=== PATIENT | female | born 1965 | race Caucasian/White ===

== ENCOUNTER → 2022-05-31 15:03 | Outpatient (CLI) | payer MEDICAID, SELFPAY ==
--- NOTE | ~2022-05-31 | XR_ITS ---
XR chest 2V DATE: 05/31/2022 15:45 INDICATION: Dyspnea, shortness of breath for 3 days. Crackling sounds. Ex-smoker. TECHNIQUE: 2 views COMPARISON: None FINDINGS: There is cardiomegaly. There is pulmonary vascular congestion and redistribution. Small ple ural effusions. The findings are consistent with mild congestive heart failure. Diffuse osteopenia. There are multiple fracture deformities in the thoracolumbar area. IMPRESSION: Cardiomegaly, mild congestive heart failure Osteopenia Multiple fracture deformities of the thoracolumbar area Reviewed, dictated and finalized at location B.
--- NOTE | ~2022-05-31 | XR_ITS ---
XR lumbar spine min 4V DATE: 05/31/2022 15:44 INDICATION: Back pain. History of compression fracture L1 2017. TECHNIQUE: AP, lateral, coned lateral lumbosacral views COMPARISON: None FINDINGS: There is minimal dextroscoliosis of the lumbar spine. There is osteopenia. There are prominent fracture deformities including prominent loss of height and anterior wedging at T 11, T12, L1, L2, L4 and to a lesser extent L5. No spondylolysis or spondylolisthesis. The included lower thoracic and lumbar pedicles appear intact. The sacroiliac joints are normally aligned. IMPRESSION: Fracture deformities of T11, T12, L1, L2, L4 and L5 Osteopenia Reviewed, dictated and finalized at location B.
--- NOTE | ~2022-05-31 | XR_ITS ---
XR knee RT min 4V DATE: 05/31/2022 15:44 INDICATION: Chronic bilateral knee pain TECHNIQUE: 4 views COMPARISON: None FINDINGS: There is osteopenia. Mild suprapatellar knee joint effusion. There is tricompartment osteoarthritis manifested mainly by tricompartment periarticular spurring and moderately severe loss of joint space at the medial compartment. No fracture or dislocation, periosteal reaction or bone destruction. No radiopaque intra-articular lo ose body or chondrocalcinosis. IMPRESSION: Tricompartment osteoarthritis, most prominent at the medial compartment Small knee joint effusion Osteopenia Reviewed, dictated and finalized at location B. IMPRESSION: Tricompartment osteoarthritis, most prominent at the medial compart ment Small knee joint effusion Osteopenia
--- NOTE | ~2022-05-31 | XR_ITS ---
XR knee LT min 4V DATE: 05/31/2022 15:44 INDICATION: Left knee pain TECHNIQUE: 4 views COMPARISON: None FINDINGS: No fracture or dislocation, periosteal reaction or bone destruction. There is mild to moder ate tricompartment osteoarthritis, more prominent at the medial compartment with moderately severe lo ss of joint space at the medial compartment, mild tricompartment particular spurring. No radiopaque intra-articular loose body or chondrocalcinosis. IMPRESSION: Tricompartment osteoarthritis, most prominent at the medial compartment Reviewed, dictated and finalized at location B. IMPRESSION: Tricompartment osteoarthritis, most prominent at the medial compart ment
== END ==
PROVIDERS: PCP Family Medicine; Visit Provider Family Medicine
DX: R06.00 Dyspnea, unspecified (principal); I51.7 Cardiomegaly; M85.88 Other specified disorders of bone density and structure, other site; I50.9 Heart failure, unspecified; M85.861 Other specified disorders of bone density and structure, right lower leg; M25.461 Effusion, right knee; M17.0 Bilateral primary osteoarthritis of knee
CPT/HCPCS: 71046; 72110; 73564

== ENCOUNTER 2022-06-05 13:04 | Outpatient (CLI) | payer MEDICAID, SELFPAY ==
[2022-06-05 18:49] LABS: Basophils Percent Auto 0.6 % (0.2-1.2); Eosinophils Absolute Auto 0.1 K/mm3 (0-0.3); Eosinophils Percent Auto 1.7 % (0-4.4); Hematocrit 37.1 % (37.0-47.0); Hemoglobin 11.5 g/dL (12.0-15.0); Immature Granulocyte Absolute 0.02 K/mm3 (0.00-0.031); Immature Granulocyte Percent A 0.3 % (0-0.5); Lymphocytes Absolute Auto 1.41 K/mm3 (0.9-3.2); Lymphocytes Percent Auto 22.2 % (18.3-44.2); Mean Corpuscular Hemoglobin 35.9 pg (26-34); Mean Corpuscular Volume 115.9 fl (80-100); Mean Platelet Volume 8.9 fl (7.4-10.4); Monocytes Absolute Auto 0.5 K/mm3 (0.1-0.6); Monocytes Percent Auto 7.2 % (2.6-8.5); Neutrophils Absolute Auto 4.3 K/mm3 (1.3-6.7); Platelet Count Result 262 k/mm3 (150-375); Red Cell Distribution Width 16.1 % (11.5-14.5); White Blood Count 6.4 K/mm3 (4.5-10.0)
[2022-06-05 19:03] LABS: Alanine Aminotransferase 25 U/L (6-35); Albumin Level 4.3 g/dL (3.5-5.1); Alkaline Phosphatase 146 U/L (38-126); Anion Gap 15 mmol/L (8-16); Aspartate Amino Transferase 51 U/L (14-36); Bilirubin,Total 0.5 mg/dL (0.2-1.3); Blood Urea Nitrogen 18 mg/dL (7-17); Calcium 8.5 mg/dL (8.4-10.2); Carbon Dioxide 37 mmol/L (22-30); Chloride 88 mmol/L (98-107); Cholesterol 197 mg/dL (0-200); Estimated Glomerular Filt Rate > 60; Glucose 105 mg/dL (65-110); HDL Direct 104 mg/dL; Potassium 3.7 mmol/L (3.4-5.0); Sodium 140 mmol/L (137-145); Triglycerides 78 mg/dL (<150)
[2022-06-05 19:06] LABS: NT Pro B Type Natriuretic Pept 394 pg/mL (5-100)
[2022-06-05 19:14] LABS: LDL Cholesterol Direct 53 mg/dL
[2022-06-05 19:25] LABS: Free T4 Free Thyroxine 0.94 ng/mL (0.78-2.19); Vitamin D 25 Hydroxy 13.7 ng/mL
[2022-06-05 20:16] LABS: Platelet Estimate Adequate (Adequate)
[2022-06-05 20:17] LABS: Hypochromasia 1+ (NORMAL)
[2022-06-05 20:18] LABS: Anisocytosis 2+ (NORMAL)
== END 2022-06-05 13:05 | disposition home or self-care (01) ==
LOC: ANHGOSHLAB 13:05
PROVIDERS: PCP Family Medicine; Visit Provider Family Medicine
DX: R53.83 Other fatigue (principal); R73.9 Hyperglycemia, unspecified; R06.00 Dyspnea, unspecified; Z13.220 Encounter for screening for lipoid disorders; E55.9 Vitamin D deficiency, unspecified
CPT/HCPCS: 36415; 80053; 80061; 82306; 83036; 83880; 84439; 84443; 85025

== ENCOUNTER 2022-06-14 13:42 | Outpatient (CLI) | payer MEDICAID, SELFPAY ==
[2022-06-14 19:57] LABS: Anion Gap 12 mmol/L (8-16); Blood Urea Nitrogen 23 mg/dL (7-17); Calcium 9.3 mg/dL (8.4-10.2); Carbon Dioxide 38 mmol/L (22-30); Chloride 90 mmol/L (98-107); Estimated Glomerular Filt Rate > 60; Glucose 95 mg/dL (65-110); Potassium 3.4 mmol/L (3.4-5.0); Sodium 140 mmol/L (137-145)
== END 2022-06-14 13:43 | disposition home or self-care (01) ==
LOC: ANHGOSHLAB 13:44
PROVIDERS: PCP Family Medicine; Visit Provider Family Medicine
DX: I50.9 Heart failure, unspecified (principal)
CPT/HCPCS: 36415; 80048

== ENCOUNTER 2022-06-20 07:52 | Outpatient (CLI) | payer MEDICAID, SELFPAY ==
--- NOTE | 2022-06-25 17:40 | WPDSLEEPSTUD ---
Sleep Study Date of Study: 06/20/22 Ordering Provider: Mounika Holalnd DO Interpreting Physician: Mounika Holland DO Sleep Study Type: Split Polysomnogram Height: 1.63 m Weight: 108.409 kg Body Mass Index: 41.0 Neck Circumference (inches): 18 [place]: 8 Reason for Sleep Study Newly diagnosed CHF Sleep History The patient is a 56-year-old female with hypertension, newly diagnosed diastolic heart failure, thoracic and lumbar vertebral fractures and GERD that had a sleep study ordered for evaluation of sleep apnea. The patient occasionally awakens from sleep short of breath. She rarely awakens at night with heartburn, belching or cough. She constantly snores and is frequently loud that others complain. She occasionally has trouble sleeping when she has a cold. She occasionally wakes up gasping for air throughout the night. She occasionally has breathing problems at night observed by herself or others. She denies sweating excessively at night. She occasionally has heart palpitations or irregular heartbeats during the night. She occasionally falls asleep during the day but never while driving. She denies sleep paralysis and cataplexy. She denies having trouble at school or work due to sleepiness. She rarely experiences vivid dreamlike scenes upon awakening or falling asleep. She denies feeling afraid of falling asleep. She rarely has nightmares. She occasionally remembers her dreams. She frequently has thoughts racing through her mind. She occasionally feels sad or depressed. She occasionally has anxiety. She rarely has muscular tension. She occasionally notices parts of her body jerk. She occasionally kicks during the night. She denies having crawling and aching feelings in her legs but occasionally has leg pain during the night. She denies grinding her teeth during sleep and awakening with morning jaw pain. She is constantly bothered by pain during the day but occasionally awakened by pain during the night. She frequently wakes up feeling stiff in the morning. She rarely wakes up with sore or achy muscles. He frequently wakes up with pain in the neck, spine and other joints. She goes to bed between 10-11 pm on both weekdays and weekends. It takes her 30 minutes to fall asleep. She wakes up 5 times throughout the night for unknown reasons. She is able to fall back asleep within 30 minutes. He wakes up at 10:00 a.m. on both weekdays and weekends. She typically gets 7-8 hours of sleep total. He does not stay in bed after waking up in the morning. She currently lives alone. She does not consume any caffeinated beverages within 2 hours of bedtime. She does not engage in physical exercise before bedtime. she denies reading watching television before falling asleep. She will occasionally take naps in the afternoon or evening they are refreshing. He drinks [address] Pepper sodas per day. She drinks 4-5 alcoholic beverages per day. She quit smoking. She denies recreational drug use. [facility] Past Medical History Medical History Abnormal x-ray of spine Arthritis delivery delivered Chronic back pain Chronic knee pain Congestive heart failure Vitamin D deficiency Surgical History Surgical History H/O: hysterectomy Family History Family History Father Cancer Mother Cancer Thyroid disorder Sibling Cancer Grandparent Cancer Social History Social History Smoking status: Former smoker Alcohol intake: current Alcohol use details: Vodka-daily Substance use: never Agree to blood products: Yes Medications Home Medications Medication Instructions Recorded Confirmed Type fluoxetine 60 mg tablet 60 mg PO DAILY #90 tabs 05/31/22 06/14/22 Rx losartan 50 mg
[2022-06-25 20:15] VITALS: BMI 41.0
== END 2022-06-21 07:09 | disposition home or self-care (01) ==
LOC: ANHCSM 07:54
PROVIDERS: PCP Family Medicine; Visit Provider Family Medicine
DX: G47.33 Obstructive sleep apnea (adult) (pediatric) (principal); I50.9 Heart failure, unspecified; G47.34 Idiopathic sleep related nonobstructive alveolar hypoventilation; G47.10 Hypersomnia, unspecified
CPT/HCPCS: 95811

== ENCOUNTER 2022-06-21 10:03 | Outpatient (CLI) | payer MEDICAID, SELFPAY ==
--- NOTE | 2022-06-21 10:27 | ECHO_ITS ---
Patient Info Name: Nataly Danielle Age: 56 years : 1965 Gender: Female Ht: 64 in Wt: 234 lbs BSA: 2.24 m2 HR: 71 bpm BP: 134 / 92 mmHg Technical Quality: Fair Exam Date: 06/21/2022 10:43 AM Exam Location: [facility] Patient Status: Outpatient Admit Date: 06/21/2022 Staff Ordering Physician: Mounika Holland DO Customer Service Driver: Donna Lucia RDCS Attending Provider: Mounika Holland DO Referring Physician: Skyler MENCHACA; Exam Type: CA echo doppler color flow Study Info Indications R06.00 - Dyspnea, unspecified Complete two-dimensional, color flow and Doppler transthoracic echocardiogram is performed. Summary 1. Complete two-dimensional, color flow and Doppler transthoracic echocardiogram is performed. 2. Left ventricular chamber dimension is normal. 3. Left ventricular systolic function is normal, estimated at 60-65%. 4. There is mildly increased left ventricular wall thickness. 5. The left ventricular diastolic function is grade II diastolic dysfunction. 6. E/e' 16 is elevated. 7. Left atrial chamber dimension is moderately enlarged. 8. Right atrial chamber dimension is mildly enlarged. 9. There is moderate aortic valve sclerosis. 10. There is very mild aortic valve stenosis with a peak velocity of 276 cm/s, mean gradient of 15 mmHg, and aortic valve area of 2.0 cm2. 11. There is trace mitral valve regurgitation. 12. There is trace tricuspid valve regurgitation. 13. No pulmonary hypertension, estimated pulmonary arterial systolic pressure is 38 mmHg. 14. There is trivial pericardial effusion. Left Ventricle E/e' 16 is elevated. Left ventricular chamber dimension is normal. Left ventricular systolic function is normal, estimated at 60-65%. There is mildly increased left ventricular wall thickness. The left ventricular diastolic function is grade II diastolic dysfunction. Right Ventricle Right ventricular chamber dimension is normal. Right ventricular systolic function is normal. Left Atria Left atrial chamber dimension is moderately enlarged. Right Atria Right atrial chamber dimension is mildly enlarged. Aortic Valve There is very mild aortic valve stenosis with a peak velocity of 276 cm/s, mean gradient of 15 mmHg, and aortic valve area of 2.0 cm2. The aortic valve is trileaflet. There is moderate aortic valve sclerosis. There is no aortic valve regurgitation. Pulmonic Valve There is no pulmonic regurgitation. Mitral Valve There is no mitral valve stenosis. There is trace mitral valve regurgitation. Tricuspid Valve There is trace tricuspid valve regurgitation. No pulmonary hypertension, estimated pulmonary arterial systolic pressure is 38 mmHg. Pericardium/Pleural There is trivial pericardial effusion. Inferior Vena Cava Normal inferior vena cava with >50% collapse upon inspiration consistent with normal right atrial pressure, 5 mmHg. Aorta The aortic root size at the sinus of Valsalva is normal. Left Ventricular Outflow Tract Name Value Normal LVOT 2D LVOT Diameter 2.0 cm LVOT Doppler LVOT Peak Gradient 10 mmHg
== END 2022-06-21 10:04 | disposition home or self-care (01) ==
LOC: ANHCARD 10:04
PROVIDERS: PCP Family Medicine; Visit Provider Family Medicine
DX: R06.00 Dyspnea, unspecified (principal); I35.0 Nonrheumatic aortic (valve) stenosis; I51.89 Other ill-defined heart diseases
CPT/HCPCS: 93306

== ENCOUNTER 2022-07-04 14:42 | Outpatient (CLI) | payer MEDICAID, SELFPAY ==
--- NOTE | 2022-07-04 16:29 | WPDSIXMINUTE ---
Six Minute Walk Procedure Procedure Performed Pulmonary Stress Test (6 min walk) Six Minute Walk Six Minute Walk: This is a 6 minute walk test. The test was performed and interpreted in accordance with the 2014 ERS/ATS task force guidelines. Findings: The patient's resting room air oxygen saturation measured by pulse oximetry was 93% and heart rate was 56 bpm. Patient ambulated for 305 meters and oxygen saturation remained 89 to 92%. Heart rate at the end of the study was 74 bpm. The patient did not qualify for supplemental oxygen at rest or with ambulation. There are no prior studies for comparison.
--- NOTE | 2022-07-04 16:31 | WPDPFTINT ---
PFT Procedure Performed PFT Procedure Performed Spirometry with Pre/Post Bronchodilator Plethysmography (Lung Vol) Diffusing Cap (DLCO) Flow Vol Loop PFT Interpretation This is a pulmonary function test with pre and post-bronchodilator spirometry, plethysmography and diffusing capacity. The test was performed and results interpreted in accordance with the 2019 and 2005 ATS/ERS Task Force guidelines respectively using the Global Lung Function Initiative-2012 reference equations. Patient demonstrated good effort and cooperation. Reproducibility criteria were met. The quality of the pre bronchodilator spirometry maneuver was Grade A and post bronchodilator spirometry maneuver was Grade A. Findings: Spirometry: the contour the inspiratory and expiratory flow tracing are normal. The pre bronchodilator FVC is 2.17 L, 69% predicted. The pre bronchodilator FEV1 is 1.77 L, 71% predicted. The pre bronchodilator FEV1: FVC ratio was 82%. The post bronchodilator FVC is 2.13 L, representing a 2% decrease. The post bronchodilator FEV1 is 1.80 L, representing a 2% increase. The post bronchodilator FEV1: FVC ratio is 84%. Plethysmography: The total lung capacity is 3.74 L, 76% predicted. The functional residual capacity is 2.03 L, 74% predicted. The residual volume is 1.58 L, 84% predicted. Diffusion capacity: The diffusing capacity unadjusted for hemoglobin and carboxyhemoglobin is 15.9, 74% predicted. The diffusing capacity adjusted for alveolar volume is 5.76, 127% predicted. Impression: There is a mild restrictive ventilatory abnormality. The spirometry is normal without evidence of an obstructive abnormality. There is no significant improvement after inhaling a single dose of albuterol. The diffusing capacity is normal. There are no prior studies for comparison
== END 2022-07-04 14:43 | disposition home or self-care (01) ==
LOC: ANHPFT 14:43
PROVIDERS: PCP Family Medicine; Visit Provider Family Medicine
DX: R06.00 Dyspnea, unspecified (principal)
CPT/HCPCS: 94060; 94618; 94726; 94729

== ENCOUNTER 2022-07-07 08:41 | Outpatient (CLI) | payer MEDICAID, SELFPAY ==
--- NOTE | ~2022-07-07 | MR_ITS ---
EXAMINATION: MR thoracic spine wo con DATE: 07/07/2022 10:05 INDICATION: Fracture deformities of T11 and T12. TECHNIQUE: Magnetic resonance imaging (MRI) of the thoracic spine was performed without intravenous c ontrast. COMPARISON: Chest CT 07/07/2022, lumbar spine radiographs 05/31/2022 FINDINGS: There is 5 degrees levocurvature of cervicothoracic spine. There is a burst fracture of T11 with 3/5 loss of height, bone marrow edema, and retropulsion of bone 2 mm into central spinal canal. There is a burst fracture of T12 with 3/5 loss of height, bone marrow edema, and retropulsion of bon e 3 mm into central spinal canal. There is mild chronic height loss of T2 and T3 vertebral bodies. At T10-T11, the disc is bulging with mild central canal stenosis. At T11-T12, the disc is bulging with mild central canal stenosis. There is multilevel facet joint osteoarthritis, severe bilaterally at T1 0-T11 and T11-T12. On the right, there is mild neural foraminal stenosis at T10-T11 and T11-T12. On t he left, there is mild neural foraminal stenosis at T10-T11 and T11-T12. IMPRESSION: 1. Subacute burst fractures of T11 and T12, stable from 05/31/2022. 2. Mild thoracic spondylosis. Reviewed, dictated and finalized at location A.
--- NOTE | ~2022-07-07 | MR_ITS ---
EXAMINATION: MR lumbar spine wo con DATE: 07/07/2022 10:05 INDICATION: Fracture deformities of lumbar spine. TECHNIQUE: Magnetic resonance imaging (MRI) of the lumbar spine was performed without intravenous con trast. Sequences included sagittal T2-weighted FSE, sagittal T2-weighted FS FSE, sagittal T1-weighted FSE, and axial T2-weighted FSE. COMPARISON: Lumbar spine radiographs 05/31/2022 FINDINGS: There is kyphosis of inferior thoracic spine. There are chronic burst fractures of L1, L2, L4, and L5 with 2/5, 3/5, 2/5, and 1/5 loss of height, respectively. There is moderately decreased di sc height at T12-L1. The distal spinal cord signal intensity is normal. The conus medullaris is at L1 . The following disc levels are specifically discussed: T12-L1: The disc is bulging. There is moderate bilateral facet joint osteoarthritis. There is mild bi lateral neural foraminal stenosis. There is mild central canal stenosis. L1-L2: The disc is bulging. There is severe right and moderate left facet joint osteoarthritis. There is mild bilateral neural foraminal stenosis. There is mild central canal stenosis. L2-L3: The disc is bulging and has an annular fissure. There is severe bilateral facet joint osteoart hritis. There is mild bilateral neural foraminal stenosis. There is mild central canal stenosis. L3-L4: The disc is bulging and has an annular fissure. There is severe right and moderate left facet joint osteoarthritis. There is mild bilateral neural foraminal stenosis. There is mild central canal stenosis. L4-L5: The disc is bulging and has an annular fissure. There is moderate right and mild left facet sheridan int osteoarthritis. There is moderate right and mild left neural foraminal stenosis. There is mild ce ntral canal stenosis. L5-S1: The disc is bulging. There is moderate bilateral facet joint osteoarthritis. There is mild gladis ateral neural foraminal stenosis. There is no central canal stenosis. IMPRESSION: 1. Moderate lumbar spondylosis. Reviewed, dictated and finalized at location A.
--- NOTE | ~2022-07-07 | CT_ITS ---
EXAMINATION: CT diagnostic chest wo con DATE: 07/07/2022 10:44 INDICATION: Persistent hypoxemia. TECHNIQUE: Computed tomography (CT) of the chest was performed without intravenous contrast. The dose -length product was 602.19 mGy-cm. Automated exposure control and iterative reconstruction technique were employed. COMPARISON: Chest x-ray dated 05/31/2022 FINDINGS: Heart size normal. No significant pleural or pericardial effusion. The upper abdomen is unr emarkable. No thoracic lymphadenopathy. Gallbladder is present. No pneumothorax. No endobronchial les ions. There is dependent atelectasis. No peripheral consolidation to suggest pneumonia. No pneumothor ax. No suspicious pulmonary nodules or masses. There is mild bilateral interlobular septal thickening which may reflect interstitial lung disease or mild edema. There are multiple compression fractures involving T11, T12, L1 and L2, most likely chronic. IMPRESSION: 1. Subtle interlobular septal thickening bilaterally which may reflect interstitial lung disease or e bettye. 2: Lower thoracic and upper lumbar compression fractures involving T11-L2, most likely chronic. Reviewed, dictated and finalized at location A. IMPRESSION: 1. Subtle interlobular septal thickening bilaterally which may reflect intersti tial lung disease or edema. 2: Lower thoracic and upper lumbar compression fractures involving T11-L2, most likely chronic.
== END 2022-07-07 08:42 | disposition home or self-care (01) ==
LOC: ANHIMG 08:44
PROVIDERS: PCP Family Medicine; Visit Provider Family Medicine
DX: G47.34 Idiopathic sleep related nonobstructive alveolar hypoventilation (principal); S22.081A Stable burst fracture of T11-T12 vertebra, initial encounter for closed fracture; M47.814 Spondylosis without myelopathy or radiculopathy, thoracic region; M47.816 Spondylosis without myelopathy or radiculopathy, lumbar region; R91.8 Other nonspecific abnormal finding of lung field
CPT/HCPCS: 71250; 72146; 72148

== ENCOUNTER 2022-08-27 13:06 | Outpatient (CLI) | payer BC, SELFPAY ==
[2022-08-27 20:14] LABS: Anion Gap 11 mmol/L (8-16); Blood Urea Nitrogen 25 mg/dL (7-17); Carbon Dioxide 29 mmol/L (22-30); Chloride 98 mmol/L (98-107); Estimated Glomerular Filt Rate > 60; Glucose 97 mg/dL (65-110); Potassium 3.8 mmol/L (3.4-5.0); Sodium 138 mmol/L (137-145)
== END 2022-08-27 13:07 | disposition home or self-care (01) ==
LOC: ANHGOSHLAB 13:08
PROVIDERS: PCP Family Medicine; Visit Provider Family Medicine
DX: I50.9 Heart failure, unspecified (principal)
CPT/HCPCS: 36415; 36600; 80048

== ENCOUNTER 2023-06-22 12:28 | Outpatient (CLI) | payer OTHER, SELFPAY ==
--- NOTE | 2023-06-22 12:34 | ECHO_ITS ---
Patient Info Name: Nataly Danielle Age: 57 years : 1965 Gender: Female Ht: 63 in Wt: 239 lbs BSA: 2.26 m2 HR: 69 bpm BP: 202 / 123 mmHg Heart Rhythm: Sinus Rhythm Technical Quality: Good Exam Date: 06/22/2023 1:00 PM Exam Location: [facility] Patient Status: Outpatient Admit Date: 06/22/2023 Staff Ordering Physician: Miguel Angel Yates DO Attending Provider: Miguel Angel Yates DO Referring Physician: Milan HAMILTON; Exam Type: CA echo doppler color flow Study Info Indications - CHF Complete two-dimensional, color flow and Doppler transthoracic echocardiogram is performed. Summary 1. Complete two-dimensional, color flow and Doppler transthoracic echocardiogram is performed. 2. Left ventricular chamber dimension is normal. 3. Left ventricular systolic function is normal, estimated at 60-65%. 4. There is mild concentric increased left ventricular wall thickness. 5. The left ventricular diastolic function is grade III diastolic dysfunction. 6. E/e' 18 is elevated. 7. There is mild aortic valve sclerosis. 8. There is mild mitral valve regurgitation. 9. There is trace tricuspid valve regurgitation. 10. No pulmonary hypertension, estimated pulmonary arterial systolic pressure is 17 mmHg. Left Ventricle E/e' 18 is elevated. Left ventricular chamber dimension is normal. Left ventricular systolic function is normal, estimated at 60-65%. There is mild concentric increased left ventricular wall thickness. The left ventricular diastolic function is grade III diastolic dysfunction. Right Ventricle Right ventricular systolic function is normal and with normal TAPSE 3.2 cm. Right ventricular chamber dimension is normal. Left Atria Left atrial chamber dimension is moderately enlarged. Right Atria Right atrial chamber dimension is normal. Aortic Valve The aortic valve is trileaflet. There is mild aortic valve sclerosis. There is no aortic valve stenosis. There is no aortic valve regurgitation. Pulmonic Valve There is no pulmonic regurgitation. Mitral Valve There is no mitral valve stenosis. There is mild mitral valve regurgitation. Tricuspid Valve There is trace tricuspid valve regurgitation. No pulmonary hypertension, estimated pulmonary arterial systolic pressure is 17 mmHg. Pericardium/Pleural There is no pericardial effusion. Inferior Vena Cava Normal inferior vena cava with >50% collapse upon inspiration consistent with normal right atrial pressure, 5 mmHg. Aorta The aortic root size at the sinus of Valsalva is normal. Left Ventricular Outflow Tract Name Value Normal LVOT 2D LVOT Diameter 2.2 cm LVOT Doppler LVOT Peak Gradient 2 mmHg LVOT Mean Gradient 1 mmHg LVOT VTI 20 cm LVOT VTI/AV VTI Ratio 0.5 LVOT Stroke Volume 79 ml LVOT CO 3.9 l/min LVOT CI 1.7 l/min/m2 Pulmonic Valve Name Value Normal
== END 2023-06-22 12:29 | disposition home or self-care (01) ==
PROVIDERS: PCP Family Medicine; Visit Provider Internal Medicine Cardiovascular Disease
DX: I50.30 Unspecified diastolic (congestive) heart failure (principal); I34.0 Nonrheumatic mitral (valve) insufficiency
CPT/HCPCS: 93306

== ENCOUNTER 2023-07-18 18:43 | Observation (INO) | payer OTHER, SELFPAY ==
[2023-07-18] VITALS (8 sets, daily range): BP systolic 179–250; BP diastolic 98–106; PULSE 65–82; RESP 15–20; TEMP 36–36.6; O2SAT 96–100; BMI 42.3
--- NOTE | ~2023-07-18 | XR_ITS ---
EXAMINATION: XR chest 1V portable INDICATION: Hypertension and shortness of breath TECHNIQUE: Portable AP chest at 1951 hours COMPARISON: 05/31/2022 FINDINGS: Cardiomegaly is noted. There is a mild diffuse interstitial pattern. No pleural effusion or pneumothorax. IMPRESSION: 1. Cardiomegaly with mild pulmonary edema. Reviewed, dictated and finalized at location F.
--- NOTE | ~2023-07-18 | CT_ITS ---
EXAMINATION: CT brain wo con INDICATION: Headache COMPARISON: None TECHNIQUE: Standard unenhanced head CT. The dose-length product (DLP) was 605.33 mGy-cm. The mA was a djusted according to patient size. Iterative reconstruction technique was employed. FINDINGS: No intracranial hemorrhage, acute infarction, or abnormal mass lesion. The ventricles are n ormal. No abnormal mass effect or midline shift. The lentz-white matter differentiation is normal. The basal cisterns are patent. The orbits are normal. There is near complete opacification of the left m axillary sinus. There is mild mucosal thickening of the ethmoidal air cells. IMPRESSION: 1. No acute intracranial abnormality. 2. Left maxillary sinusitis. Reviewed, dictated and finalized at location F.
--- NOTE | 2023-07-18 19:27 | ECG_ITS ---
Measurements Intervals [place] Rate: 60 P: 26 AR: 157 QRS: 29 QRSD: 94 T: 22 QT: 412 QTc: 415 Interpretive Statements SINUS RHYTHM NO PREVIOUS ECG AVAILABLE FOR COMPARISON Electronically Signed On 07-19-2023 7:46:04 CDT by Selene Mendoza MD
[2023-07-18 19:36] LABS: Basophils Absolute Auto 0.1 K/mm3 (0.0-0.1); Basophils Percent Auto 0.7 % (0.2-1.2); Eosinophils Absolute Auto 0.2 K/mm3 (0-0.3); Eosinophils Percent Auto 2.2 % (0-4.4); Hematocrit 39.3 % (37.0-47.0); Hemoglobin 12.4 g/dL (12.0-15.0); Immature Granulocyte Absolute 0.02 K/mm3 (0.00-0.031); Immature Granulocyte Percent A 0.2 % (0-0.5); Lymphocytes Absolute Auto 1.64 K/mm3 (0.9-3.2); Lymphocytes Percent Auto 20.3 % (18.3-44.2); Mean Corpuscular HGB Conc 31.6 g/dl (32-36); Mean Corpuscular Hemoglobin 35.5 pg (26-34); Mean Corpuscular Volume 112.6 fl (80-100); Mean Platelet Volume 9.9 fl (7.4-10.4); Monocytes Absolute Auto 0.6 K/mm3 (0.1-0.6); Monocytes Percent Auto 7.2 % (2.6-8.5); Neutrophils Absolute Auto 5.6 K/mm3 (1.3-6.7); Neutrophils Percent Auto 69.4 % (45.5-73.1); Platelet Count Result 428 k/mm3 (150-375); Red Blood Count 3.49 M/mm3 (4.2-5.4); Red Cell Distribution Width 12.8 % (11.5-14.5); White Blood Count 8.1 K/mm3 (4.5-10.0)
--- NOTE | 2023-07-18 19:46 | ED.GENADULT ---
HPI - General Adult General Chief complaint: Headache Stated complaint: hypertension Time Seen by Provider: 07/18/23 19:25 History of Present Illness HPI narrative: Patient is a 57-year-old female who presents the emergency department with chief complaint of headache. Patient reports that she has history of [place]'s syndrome and reports that she recently was admitted to [place] for a hypertensive crisis. Patient at that time was intubated and was in the ICU for several days. Patient reports when she was discharged her blood pressures have still been running high in the 190s and reports that she still has been intermittently having a headache the patient reports she followed up with her primary care provider who today found that her blood pressure was 250s and with her headache recommended that she come to the emergency department for continual blood pressure control. Related Data Home Medications Medication Instructions Recorded Confirmed omeprazole 20 mg capsule,delayed 20 mg PO DAILY 06/14/22 07/18/23 release metformin 500 mg tablet 500 mg PO DAILY 03/29/23 07/18/23 spironolactone 50 mg tablet 50 mg PO QAM 03/29/23 07/18/23 Allergies Allergy/AdvReac Type Severity Reaction Status Date / Time lisinopril Allergy Mild Cough Verified 07/18/23 16:57 Review of Systems Review of Systems: A 10 system review of systems was completed on the patient and is negative except for what is stated in the HPI. Nursing and ancillary documentation was reviewed. [facility] Past Medical History Medical History (Updated 07/18/23 @ 21:09 by Golden Hayward MD) Abnormal x-ray of spine Arthritis delivery delivered Chronic back pain Chronic knee pain Congestive heart failure PRES (posterior reversible encephalopathy syndrome) 07/07/2023 Vitamin D deficiency Surgical History Surgical History H/O: hysterectomy Family History Family History Father Cancer Mother Cancer Thyroid disorder Sibling Cancer Grandparent Cancer Social History Social History Smoking status: Former smoker Alcohol intake: current Alcohol use details: Vodka-daily Substance use: never Lack of Transportation: No Lack of Food: Never True Current Housing: I Have Housing Concerned About Future Housing: No Difficulty Paying Gas/Electric Bills: No Difficulty Paying for Meds: No Currently Unemployed: No Education: High School Diploma/GED Difficulty w/ Childcare or Family Care: No Living arrangements: alone Agree to blood products: Yes Exam Narrative: GENERAL: Well-appearing, well-nourished, and in no acute distress. HEAD: Normocephalic, atraumatic. EYES: PERRLA and EOMI. ENT: Nares clear, no rhinorrhea or epistaxis. Mucous membranes moist. NECK: Supple. CHEST: Clear to auscultation. No respiratory distress. HEART: Regular rate and rhythm. No murmur heard. Normal peripheral pulses. ABDOMEN: Soft, nontender, nondistended, normal active bowel sounds. EXTREMITIES: Normal range of motion. No edema. SKIN: Warm, dry, no rash. NEURO: No focal deficits. Alert and oriented x3. GCS 15 NIH 0 PSYCH: Normal mood and affect. Course Vital Signs Vital signs: Vital Signs Temperature 36.0 C L 07/18/23 18:47 Pulse Rate 70 07/18/23 18:47 Respiratory Rate 18 07/18/23 18:47 Blood Pressure 250/105 H 07/18/23 18:47 Pulse Oximetry 97 07/18/23 18:47 Oxygen Delivery Room Air 07/18/23 18:47 Temperature 36.0 C L 07/18/23 18:47 Pulse Rate 69 07/18/23 20:46 Respiratory Rate 19 07/18/23 20:46 Blood Pressure 193/106 H 07/18/23 20:46 Pulse Oximetry 97 07/18/23 20:46 Oxygen Delivery Room Air 07/18/23 18:47 Medical Decision Making Vital Signs Vital Signs: Vital Signs Temperatur
[2023-07-18 19:47] LABS: INR 0.9; Prothrombin Time 12.7 Seconds (11.1-14.7)
[2023-07-18 19:48] LABS: Partial Thromboplastin Time 27.5 SECONDS (22.3-36.8)
[2023-07-18 19:49] LABS: Alanine Aminotransferase 22 U/L (6-35); Albumin Level 4.5 g/dL (3.5-5.1); Alkaline Phosphatase 69 U/L (38-126); Anion Gap 8 mmol/L (8-16); Aspartate Amino Transferase 41 U/L (14-36); Bilirubin,Total 0.9 mg/dL (0.2-1.3); Blood Urea Nitrogen 12 mg/dL (7-17); Calcium 9.5 mg/dL (8.4-10.2); Carbon Dioxide 29 mmol/L (22-30); Chloride 102 mmol/L (98-107); Estimated CRCL calculation 71 ml/min; Estimated Glomerular Filt Rate > 60; Glucose 94 mg/dL (65-110); Lipase 172 U/L (23-300); Sodium 139 mmol/L (137-145)
[2023-07-18 19:58] LABS: Macrocytosis 1+ (NORMAL); Platelet Estimate Increased (Adequate); Schistocytes None Seen (NORMAL); Stomatocytes 1+ (NORMAL)
[2023-07-18 20:01] LABS: Troponin I 0.013 ng/mL (0.000-0.034)
[2023-07-18] MEDS: hydrALAZINE HCL 20 MG/ML VIAL 10 MG IV PUSH ×2 (20:12→21:48)
[2023-07-18] MEDS: MORPHINE SULFATE (*CRX) 4 MG/ML INJ IV PUSH (20:47)
--- NOTE | 2023-07-18 21:07 | PM.IMHP ---
H&P: HPI History of Present Illness Date/Time: 07/18/23 21:07 Chief Complaint: Headache Narrative: This is a 57-year-old female with past medical history significant for morbid obesity, obstructive sleep apnea, CPAP at nighttime, cushions syndrome, alcohol dependence, hypertension, type diabetes mellitus. Patient recently discharged from outside hospital after having seizure disorder and being comatose for 2 days patient used to drink a pt of vodka daily and was meeting up over the weekend with her friends and had large amounts of alcohol to drink when she was witnessed to have an episode seizure-like. Patient had extensive workup including LP and other various tests was ruled out for pheochromocytoma. Now presents to the emergency room due to uncontrolled hypertension with systolic in the 200s, patient had been seen by her fisher purse seine who discontinued to of her anti hypertensives, patient states that she has been having flutter in her chest, occipital headache, scotomas, anxiety, patient quit drinking cold turkey ever since have been having blood pressure is uncontrolled with systolic in the 200s. EXAMINATION: XR chest 1V portable INDICATION: Hypertension and shortness of breath TECHNIQUE: Portable AP chest at 1951 hours COMPARISON: 05/31/2022 FINDINGS: Cardiomegaly is noted. There is a mild diffuse interstitial pattern. No pleural effusion or pneumothorax. IMPRESSION: 1. Cardiomegaly with mild pulmonary edema. EXAMINATION: CT brain wo con ? INDICATION: Headache ? COMPARISON: None TECHNIQUE: Standard unenhanced head CT. The dose-length product (DLP) was 605.33 mGy-cm. The mA was adjusted according to patient size. Iterative reconstruction technique was employed. ? FINDINGS: No intracranial hemorrhage, acute infarction, or abnormal mass lesion. The ventricles are normal. No abnormal mass effect or midline shift. The lentz-white matter differentiation is normal. The basal cisterns are patent. The orbits are normal. There is near complete opacification of the left maxillary sinus. There is mild mucosal thickening of the ethmoidal air cells. ? IMPRESSION: 1. No acute intracranial abnormality. 2. Left maxillary sinusitis. Review of Systems Review of Systems: uncontrolled hypertension, occipital headache, chest fluttering,anxiety, fatigue. Constitutional: Constitutional: Denies chills, Reports fatigue, Denies fever(s), Reports headache(s) and Denies night sweats Eyes: Eyes: Reports other visual disturbances (scotoma) ENT: Denies dysphagia, Denies vertigo, Denies dizziness and Denies odynophagia Cardiovascular: Cardiovascular: Denies chest pain, Denies leg edema, Denies radiating jaw, neck or arm pain, Denies palpitations, Reports dyspnea and Reports other (fluttering on the chest) Respiratory: Respiratory: Denies chest congestion, Denies cough, Denies excessive phlegm production and Denies wheezing Gastrointestinal: Gastrointestinal: Denies abdominal pain, Denies dyspepsia, Denies heartburn, Denies loose stools, Denies nausea and Denies vomiting Genitourinary: Genitourinary: Denies dysuria and Denies flank pain Musculoskeletal: Musculoskeletal: Denies myalgias, Denies arthralgias, Denies joint swelling and Denies muscle weakness Integumentary/Breasts: Skin/Breast: Denies rash Neurologic: Denies abnormal gait, Denies vertigo, Denies dizziness, Denies syncope, Denies focal weakness and Denies Sensory deficit (Neuro) Psychiatric: Psychiatric: Reports anxiety Endocrine: Endocrine: Denies cold intolerance, Denies fatigue, Denies flushing, Denies heat intolerance, Denies polyphagia, Denies polydipsia and Denies palpitations Hematologic/Lymphatic: Hematologic/Lymphatic: Reports no additional hematologic/lymphatic complaints and Reports as per HPI Allergic/Immunologic: Allergic/Immunologic: Reports no additional allergic/immunologic complaints and Reports as per HPI PMFSH Past Medical History Medical History (Upda
[2023-07-18] MEDS: LORazepam INJ (*CRX) 2 MG/ML VIAL 1 MG IV PUSH (22:27)
--- NOTE | 2023-07-18 22:55 | ADMGEN ---
This patient, Nataly Danielle, was admitted to IMU Room 213-01. Patient/family oriented to hospital policies and general routines including ID bracelet, bed and alarms, visiting hours, pain management, procedures, bathroom and other care routines, personal items, smoking policy, room service/diet, and visiting hours. Information on how to activate the Rapid Response Team has been discussed. Patient/Family are encouraged to report perceived risks to care and to ask questions if they do not understand what they are told or what they should do.
[2023-07-19] VITALS (13 sets, daily range): BP systolic 125–156; BP diastolic 70–80; PULSE 53–82; RESP 14–20; TEMP 36.2–36.6; O2SAT 93–98
[2023-07-19] MEDS: carvediloL 25 MG TABLET PO ×3 (01:00→20:11)
[2023-07-19] MEDS: traZODone HCL 50 MG TABLET 100 MG PO (01:01)
[2023-07-19 03:47] LABS: Troponin I 0.029 ng/mL (0.000-0.034)
--- NOTE | 2023-07-19 04:16 | PHAR ---
Verified mifepristone 300 mg ORAL tablet - TAKE 2 TABLETS BY MOUTH ONCE A DAY in pharmacy and sent back to IMU for inpatient use.
[2023-07-19 05:10] LABS: Troponin I 0.058 ng/mL (0.000-0.034)
[2023-07-19] MEDS: chlordiazePOXIDE (*CRX) 25 MG CAPSULE 50 MG PO ×3 (06:13→17:37)
[2023-07-19] MEDS: THIAMINE HCL 100 MG TABLET PO (08:29)
[2023-07-19] MEDS: FOLIC ACID 1 MG TABLET PO (08:29)
[2023-07-19] MEDS: FLUoxetine HCL 20 MG CAPSULE 60 MG PO (08:29)
[2023-07-19] MEDS: VITAMIN B COMPLEX CAPSULE 1 CAP PO (08:29)
[2023-07-19] MEDS: LOSARTAN POTASSIUM 25 MG TABLET PO (08:30)
[2023-07-19] MEDS: SPIRONOLACTONE 50 MG TABLET 100 MG PO (08:30)
[2023-07-19] MEDS: cloNIDine 0.1 MG/24 HR PATCH 1 PATCH TRANSDERM (08:30)
[2023-07-19] MEDS: FUROSEMIDE 20 MG TABLET PO (08:30)
[2023-07-19] MEDS: PANTOPRAZOLE 40 MG TABLET PO (08:30)
--- NOTE | 2023-07-19 12:08 | PM.IMPN ---
Progress Note: A&P Assessment and Plan (1) Hypertensive urgency: Code(s): I16.0 - Hypertensive urgency Status: Acute Assessment and Plan: Admit to IMU Re start home meds Cautious normalization of BP Likely secondary to Alcohol cessation Blood pressure much improved. Monitor for today (2) Headache: Code(s): R51.9 - Headache, unspecified Status: Acute Assessment and Plan: Supportive care CT head reviewed (3) Diastolic heart failure: Code(s): I50.30 - Unspecified diastolic (congestive) heart failure Status: Acute Assessment and Plan: Daily I/O's Appears euvolemic however body habitus might mask fluid overload Continue to monitor (4) JOLEEN (obstructive sleep apnea): Code(s): G47.33 - Obstructive sleep apnea (adult) (pediatric) Status: Acute Assessment and Plan: CPAP at night time (5) Morbid obesity with BMI of 45.0-49.9, adult: Code(s): E66.01 - Morbid (severe) obesity due to excess calories; Z68.42 - Body mass index [BMI] 45.0-49.9, adult Status: Acute Assessment and Plan: life style and diet modifications 1800 calorie restricted diet (6) EtOH dependence: Code(s): F10.20 - Alcohol dependence, uncomplicated Status: Acute Assessment and Plan: Patient quit Has been sober for 2 + weeks Given praise Subjective Date/time seen: 07/19/23 12:08 Interval history: No complaints Exam Narrative: Patient is laying in a stretcher Const: General: cooperative, comfortable, no acute distress, well developed, alert, awake, Physically active, Cushingoid facies and obese Nutritional Appearance: obese morbidly obese Orientation/consciousness: patient oriented x3 HENMT: Head: normal to inspection, normocephalic and atraumatic Ears: hearing grossly normal bilaterally Face/Nose/Sinus: normal facial exam Face and sinus: normal facial exam Eyes: General: appearance normal, both eyes and all related structures Pupils: Equal, round and reactive pupils present EOM: EOMs intact bilaterally Neck: Neck: full ROM, no lymphadenopathy and no JVD Thyroid: thyroid normal Lymphatic: no lymphadenopathy noted Resp: Effort & Inspection: normal respiratory effort and able to speak in complete sentences Auscultation: clear to auscultation bilaterally Cardio: Jugular venous distension: no JVD Rate: regular rate Rhythm: regular rhythm Heart sounds: S1 normal heart sound present and S2 normal heart sound present : General: Yes deferred Skin: Rashes: no rashes Wounds: no wounds Neuro: General: patient oriented x3, CN's II-XI intact bilaterally and Unable to assess gait Cranial nerves: Yes CN's II-XII intact bilaterally and Yes Equal, round and reactive pupils present Cognition (Neuro): normal cognition Speech: normal speech Gait exam (Neuro): Unable to assess gait Motor exam (neuro): 5/5 motor strength present throughout Sensory Exam: No Sensory deficit (Neuro) Extrem: General: normal to inspection, full ROM, no joint enlargement and no pedal edema Psych: Appearance: grossly normal Mental Status: mental status grossly normal Speech and movement: Normal speech and movement present Affect: normal affect Attitude: cooperative Thought process: Normal thought process present Insight: Good insight present (Psych) Judgement: Good judgement present (Psych) Objective Data Vital Signs Vital Signs: Vital Signs - 24 hr 07/18/23 18:47 07/18/23 19:28 07/18/23 20:46 Temperature 96.8 F L Pulse Rate 70 65 69 Respiratory Rate 18 16 19 Blood Pressure 250/105 H 199/105 H 193/106 H Pulse Oximetry 97 97 97 Oxygen Delivery Room Air 07/18/23 22:01 07/18/23 22:40 07/18/23 23:12 Temperature 97.9 F Pulse Rate 73 80 82 Respiratory Rate 15 20 Blood Pressure 179/98 H 190/99 H Pulse Oximetry 100 96 Oxygen Delivery 07/18/23 23:12 07/18/23 23:18 07/18/23 23:49 Temperature Pulse Rate 82 82 Respirato
[2023-07-19] MEDS: ACETAMINOPHEN 325 MG TABLET 650 MG PO (17:37)
--- NOTE | 2023-07-19 18:32 | PC.NURSE ---
Patient transferred to [facility] from IMU per wheelchair at 1830. Report given by Jillian JUAREZ.
--- NOTE | 2023-07-19 18:39 | PC.NURSE ---
This patient, Nataly Danielle, was transferred to [ 243] on 07/19/23 at 1830. Personal belongings sent with patient. Report given to [Elin JUAREZ ]. Appropriate documentation sent with patient.
[2023-07-20] VITALS: BP 102/57; PULSE 53; RESP 20; TEMP 36.4; O2SAT 93
[2023-07-20 04:20] VITALS: BP 94/65; PULSE 56; RESP 20; TEMP 36.2; O2SAT 99
[2023-07-20] MEDS: chlordiazePOXIDE (*CRX) 25 MG CAPSULE 50 MG PO ×2 (05:59→06:00)
[2023-07-20 08:44] VITALS: BP 119/61; PULSE 65; O2SAT 91
[2023-07-20] MEDS: FUROSEMIDE 20 MG TABLET PO (09:31)
[2023-07-20] MEDS: FOLIC ACID 1 MG TABLET PO (09:31)
[2023-07-20] MEDS: FLUoxetine HCL 20 MG CAPSULE 60 MG PO (09:31)
[2023-07-20] MEDS: PANTOPRAZOLE 40 MG TABLET PO (09:31)
[2023-07-20] MEDS: THIAMINE HCL 100 MG TABLET PO (09:31)
[2023-07-20] MEDS: SPIRONOLACTONE 50 MG TABLET 100 MG PO (09:31)
[2023-07-20 09:32] VITALS: PULSE 65
[2023-07-20] MEDS: VITAMIN B COMPLEX CAPSULE 1 CAP PO (09:32)
[2023-07-20] MEDS: carvediloL 25 MG TABLET PO (09:32)
[2023-07-20] MEDS: LOSARTAN POTASSIUM 25 MG TABLET PO (09:32)
[2023-07-20 10:13] VITALS: O2SAT 93
--- NOTE | 2023-07-20 12:06 | PM.DS ---
DS: Admitting Diagnosis Discharge Date October 19, 2022 Admitting Diagnosis Hypertensive urgency DS: Discharge Diagnosis Discharge Diagnosis (1) Hypertensive urgency: Code(s): I16.0 - Hypertensive urgency Status: Acute Assessment and Plan: Admit to IMU Re start home meds Cautious normalization of BP Likely secondary to Alcohol cessation Blood pressure much improved. Monitor for today (2) Headache: Code(s): R51.9 - Headache, unspecified Status: Acute Assessment and Plan: Supportive care CT head reviewed (3) Diastolic heart failure: Code(s): I50.30 - Unspecified diastolic (congestive) heart failure Status: Acute Assessment and Plan: Daily I/O's Appears euvolemic however body habitus might mask fluid overload Continue to monitor (4) JOLEEN (obstructive sleep apnea): Code(s): G47.33 - Obstructive sleep apnea (adult) (pediatric) Status: Acute Assessment and Plan: CPAP at night time (5) Morbid obesity with BMI of 45.0-49.9, adult: Code(s): E66.01 - Morbid (severe) obesity due to excess calories; Z68.42 - Body mass index [BMI] 45.0-49.9, adult Status: Acute Assessment and Plan: life style and diet modifications 1800 calorie restricted diet (6) EtOH dependence: Code(s): F10.20 - Alcohol dependence, uncomplicated Status: Acute Assessment and Plan: Patient quit Has been sober for 2 + weeks Given praise DS: Summary Hospital Course Hospital Course: Admitted for elevated blood pressure. Medications were adjusted. Blood pressure most recently is 120/61. Denies any chest pain or cardiac symptoms. Okay for discharge Time Spent with Patient Time attestation: Total time spent providing and/or coordinating discharge services: Exam Narrative: Patient is laying in a stretcher Const: General: cooperative, comfortable, no acute distress, well developed, alert, awake, Physically active, Cushingoid facies and obese Nutritional Appearance: obese morbidly obese Orientation/consciousness: patient oriented x3 HENMT: Head: normal to inspection, normocephalic and atraumatic Ears: hearing grossly normal bilaterally Face/Nose/Sinus: normal facial exam Face and sinus: normal facial exam Eyes: General: appearance normal, both eyes and all related structures Pupils: Equal, round and reactive pupils present EOM: EOMs intact bilaterally Neck: Neck: full ROM, no lymphadenopathy and no JVD Thyroid: thyroid normal Lymphatic: no lymphadenopathy noted Resp: Effort & Inspection: normal respiratory effort and able to speak in complete sentences Auscultation: clear to auscultation bilaterally Cardio: Jugular venous distension: no JVD Rate: regular rate Rhythm: regular rhythm Heart sounds: S1 normal heart sound present and S2 normal heart sound present : General: Yes deferred Skin: Rashes: no rashes Wounds: no wounds Neuro: General: patient oriented x3, CN's II-XI intact bilaterally and Unable to assess gait Cranial nerves: Yes CN's II-XII intact bilaterally and Yes Equal, round and reactive pupils present Cognition (Neuro): normal cognition Speech: normal speech Gait exam (Neuro): Unable to assess gait Motor exam (neuro): 5/5 motor strength present throughout Sensory Exam: No Sensory deficit (Neuro) Extrem: General: normal to inspection, full ROM, no joint enlargement and no pedal edema Psych: Appearance: grossly normal Mental Status: mental status grossly normal Speech and movement: Normal speech and movement present Affect: normal affect Attitude: cooperative Thought process: Normal thought process present Insight: Good insight present (Psych) Judgement: Good judgement present (Psych) Discharge Plan Discharge Attending physician on discharge: Jono Rasmussen Discharging Clinician: Jono Rasmussen Patient Disposition: Home, Self-Care Activity: as tolerated Diet: as tolerated
== END 2023-07-20 13:15 | disposition home or self-care (01) ==
LOC: ANHED 21:09 → ANHIMU 23:20 → ANH2MED 07-20 12:06 → ANHIMU 07-22 07:53
PROVIDERS: Admitting Provider Internal Medicine; Emergency Provider Emergency Medicine; PCP Family Medicine; Visit Provider Chiropractor
DX: I16.0 Hypertensive urgency (principal); E24.9 Cushing's syndrome, unspecified; I50.30 Unspecified diastolic (congestive) heart failure; I67.83 Posterior reversible encephalopathy syndrome; J81.1 Chronic pulmonary edema; I51.7 Cardiomegaly; J32.0 Chronic maxillary sinusitis; E55.9 Vitamin D deficiency, unspecified; G89.29 Other chronic pain; M54.9 Dorsalgia, unspecified; M25.569 Pain in unspecified knee; E11.9 Type 2 diabetes mellitus without complications; Z87.891 Personal history of nicotine dependence; F10.20 Alcohol dependence, uncomplicated; G47.33 Obstructive sleep apnea (adult) (pediatric); Z99.89 Dependence on other enabling machines and devices; E66.01 Morbid (severe) obesity due to excess calories; Z68.41 Body mass index [BMI] 40.0-44.9, adult; Z79.84 Long term (current) use of oral hypoglycemic drugs; Z79.899 Other long term (current) drug therapy
CPT/HCPCS: 36415; 70450; 71045; 80053; 83690; 84484; 85025; 85610; 85730; 93005; 96374; 96375; 96376; 99285; A9270; G0378; G0379; J0360; J2060; J2270

== ENCOUNTER 2023-09-27 17:05 | Emergency (ER) | payer OTHER, SELFPAY ==
[2023-09-27] VITALS (8 sets, daily range): BP systolic 137–212; BP diastolic 72–123; PULSE 57–70; RESP 16–24; TEMP 36.6; O2SAT 93–98
--- NOTE | ~2023-09-27 | CT_ITS ---
EXAMINATION: CT brain wo con DATE: 09/27/2023 18:11 INDICATION: Hypertension. Headache. TECHNIQUE: Computed tomography (CT) of the head was performed without intravenous contrast. Sagittal and coronal reconstructions were performed. The mA was adjusted according to patient size. Iterative reconstruction technique was employed. The dose-length product was 605.33 mGy-cm. COMPARISON: head CT dated 07/18/2023 FINDINGS: No acute intracranial hemorrhage, acute infarction or abnormal extra axial fluid collection. Ventricl es are normal and symmetric. No mass/mass effect. The orbits and mastoid air cells are normal. End se en is complete opacification of the left maxillary sinus with erosion through a portion of the medial wall. Interstitial mucosal thickening the distal left ethmoid air cells. IMPRESSION: 1. No acute intracranial process. 2. Persistent left maxillary sinusitis with erosion through the medial wall. Reviewed, dictated and finalized at location A. STRINGER
--- NOTE | 2023-09-27 17:27 | ECG_ITS ---
Measurements Intervals [place] Rate: 62 P: 40 IN: 173 QRS: 30 QRSD: 88 T: 24 QT: 410 QTc: 416 Interpretive Statements SINUS RHYTHM MODERATE ST DEPRESSION [0.05+ mV ST DEPRESSION] COMPARED TO ECG 07/18/2023 19:47:40 ST (T WAVE) DEVIATION NOW PRESENT Electronically Signed On 09-29-2023 14:20:05 DEPARTMENTAL SHIPPING CLERK by Reba Yo M.D.
--- NOTE | 2023-09-27 17:38 | ED.GENADULT ---
HPI - General Adult General Chief complaint: Recheck/Abnormal Lab/Rx <Marty Ram PA-C - Last Filed: 09/28/23 02:46> Stated complaint: HIGH BLOOD PRESSURE <Marty Ram PA-C - Last Filed: 09/28/23 02:46> Time Seen by Provider: 09/27/23 17:27 <Marty Ram PA-C - Last Filed: 09/28/23 02:46> Source: patient <DANIELLE Kidd Last Filed: 09/28/23 02:46> Mode of arrival: ambulatory <DANIELLE Kidd Last Filed: 09/28/23 02:46> Limitations: no limitations <DANIELLE Kidd Last Filed: 09/28/23 02:46> History of Present Illness HPI narrative: This is a 58-year-old female with PMH of PRES, HTN, CHF who presents to the ED with chief complaint of headache beginning this morning shortly after waking up. Reports that all day she has had high blood pressures despite taking her normal blood pressure medications. Reports the headache as gradual onset, not worsening but not going away. Denies worse headache of her life. Denies numbness, weakness. She reports 2 episodes of intermittent scotomas earlier today but none since. <Marty Ram PA-C - Last Filed: 09/28/23 02:46> Related Data Home medications: Home Medications Medication Instructions Recorded Confirmed metformin 500 mg tablet 500 mg PO DAILY 03/29/23 09/20/23 spironolactone 50 mg tablet 100 mg PO QAM 03/29/23 09/20/23 mifepristone 300 mg tablet (Korlym) 300 mg PO BID 07/18/23 09/20/23 omeprazole 20 mg capsule,delayed 20 mg PO DAILY 07/18/23 09/20/23 release <DANIELLE Kidd Last Filed: 09/28/23 02:46> Allergies/adverse reactions: Allergies Allergy/AdvReac Type Severity Reaction Status Date / Time lisinopril Allergy Mild Cough Verified 09/20/23 14:34 <DANIELLE Kidd Last Filed: 09/28/23 02:46> Review of Systems Review of Systems: All systems as dictated in HPI <Marty Ram PA-C - Last Filed: 09/28/23 02:46> [facility] Past Medical History Medical History: Medical History Abnormal x-ray of spine Arthritis delivery delivered Chronic back pain Chronic knee pain Congestive heart failure PRES (posterior reversible encephalopathy syndrome) 07/07/2023 Vitamin D deficiency <Marty Ram PA-C - Last Filed: 09/28/23 02:46> Surgical History Surgical History: Surgical History H/O: hysterectomy <Marty Ram PA-C - Last Filed: 09/28/23 02:46> Family History Family History: Family History Father Cancer Mother Cancer Thyroid disorder Sibling Cancer Grandparent Cancer <Marty Ram PA-C - Last Filed: 09/28/23 02:46> Social History Social History: Social History Smoking status: Former smoker Alcohol intake: former Alcohol use details: Vodka-daily Substance use: never Substance use type: does not use Lack of Transportation: No Lack of Food: Never True Current Housing: I Have Housing Concerned About Future Housing: No Difficulty Paying Gas/Electric Bills: No Difficulty Paying for Meds: No Currently Unemployed: No Education: Decline to Answer Difficulty w/ Childcare or Family Care: No Living arrangements: alone Spiritual care concerns: No Agree to blood products: Yes <DANIELLE Kidd Last Filed: 09/28/23 02:46> Exam Narrative: GENERAL: Well-appearing, well-nourished, and in no acute distress. HEAD: Normocephalic, atraumatic. EYES: PERRLA and EOMI. ENT: Nares clear, no rhinorrhea or epistaxis. Mucous membranes moist. Oropharynx without tonsillar hypertrophy exudate or other lesions. NECK: Supple. No adenopathy or masses. CHEST: No respiratory distress. Clear to auscultation. No wheezes rales or rhonchi HEART: Regular rate and rhythm. No murm
--- NOTE | 2023-09-27 17:50 | ECG_ITS ---
Measurements Intervals [place] Rate: 67 P: 45 [place]: 167 QRS: 38 QRSD: 91 T: 34 QT: 401 QTc: 425 Interpretive Statements SINUS RHYTHM COMPARED TO ECG 09/27/2023 17:32:54 NO SIGNIFICANT CHANGES Electronically Signed On 09-29-2023 14:20:15 PROOFREADER by Reba Yo M.D.
[2023-09-27 18:10] LABS: Basophils Percent Auto 0.4 % (0.2-1.2); Eosinophils Absolute Auto 0.1 K/mm3 (0-0.3); Eosinophils Percent Auto 1.3 % (0-4.4); Hematocrit 42.2 % (37.0-47.0); Hemoglobin 13.2 g/dL (12.0-15.0); Immature Granulocyte Absolute 0.02 K/mm3 (0.00-0.031); Immature Granulocyte Percent A 0.4 % (0-0.5); Lymphocytes Percent Auto 22.6 % (18.3-44.2); Mean Corpuscular HGB Conc 31.3 g/dl (32-36); Mean Corpuscular Hemoglobin 32.9 pg (26-34); Mean Corpuscular Volume 105.2 fl (80-100); Mean Platelet Volume 9.3 fl (7.4-10.4); Monocytes Absolute Auto 0.6 K/mm3 (0.1-0.6); Monocytes Percent Auto 10.5 % (2.6-8.5); Neutrophils Absolute Auto 3.4 K/mm3 (1.3-6.7); Neutrophils Percent Auto 64.8 % (45.5-73.1); Platelet Count Result 273 k/mm3 (150-375); Red Blood Count 4.01 M/mm3 (4.2-5.4); Red Cell Distribution Width 13.7 % (11.5-14.5); White Blood Count 5.3 K/mm3 (4.5-10.0)
[2023-09-27 18:19] LABS: Alanine Aminotransferase 13 U/L (6-35); Albumin Level 4.5 g/dL (3.5-5.1); Alkaline Phosphatase 77 U/L (38-126); Anion Gap 8 mmol/L (8-16); Aspartate Amino Transferase 23 U/L (14-36); Bilirubin,Total 1.9 mg/dL (0.2-1.3); Blood Urea Nitrogen 12 mg/dL (7-17); Calcium 9.3 mg/dL (8.4-10.2); Carbon Dioxide 30 mmol/L (22-30); Chloride 99 mmol/L (98-107); Estimated CRCL calculation 63 ml/min; Estimated Glomerular Filt Rate 57; Glucose 111 mg/dL (65-110); Potassium 3.6 mmol/L (3.4-5.0); Sodium 137 mmol/L (137-145)
[2023-09-27] MEDS: LABETALOL HCL INJ 100 MG/20 ML VIAL 20 MG IV PUSH (18:29)
--- NOTE | 2023-09-27 19:17 | PC.NURSE ---
Assumed care of pt from ANN Shell at this time.
[2023-09-27] MEDS: KETOROLAC 15 MG/ML VIAL (*BKC) IV PUSH (20:03)
[2023-09-27] MEDS: SODIUM CHLORIDE 0.9% IV 500 ML 999 ML IV CONT (20:04)
[2023-09-27] MEDS: PROCHLORPERAZINE EDISYLATE 10 MG/2 ML VIAL IV PUSH (20:04)
[2023-09-27] MEDS: diphenhydrAMINE HCl INJ 50 MG/ML VIAL 25 MG IV PUSH (20:04)
== END 2023-09-27 21:37 | disposition home or self-care (01) ==
PROVIDERS: Emergency Provider Physician Assistant; PCP Family Medicine
DX: R51.9 Headache, unspecified (principal); I50.9 Heart failure, unspecified; I11.0 Hypertensive heart disease with heart failure; I67.83 Posterior reversible encephalopathy syndrome; E55.9 Vitamin D deficiency, unspecified; M19.90 Unspecified osteoarthritis, unspecified site; Z87.891 Personal history of nicotine dependence; Z90.710 Acquired absence of both cervix and uterus; Z79.84 Long term (current) use of oral hypoglycemic drugs; R94.31 Abnormal electrocardiogram [ECG] [EKG]
CPT/HCPCS: 36415; 70450; 80053; 85025; 93005; 96361; 96374; 96375; 99284; J0780; J1200; J1885; J7040

== ENCOUNTER 2023-10-04 15:20 | Emergency (ER) | payer OTHER, SELFPAY ==
[2023-10-04 15:42] VITALS: BP 175/107; PULSE 71; RESP 16; TEMP 36.4; O2SAT 96
[2023-10-04 16:58] VITALS: BP 187/102; PULSE 90; RESP 16; TEMP 36.8; O2SAT 94
--- NOTE | 2023-10-04 17:09 | PC.NURSE ---
Pt is frustrated because she has not been place in room yet, ERP aware of VS and pt s/s.
--- NOTE | 2023-10-04 17:14 | PC.NURSE ---
pt notified ERP aware of her BP and s/s
== END 2023-10-04 18:57 | disposition left against medical advice (07) ==
LOC: ANHED 18:06
PROVIDERS: PCP Family Medicine
DX: R51.9 Headache, unspecified (principal)
CPT/HCPCS: 99199

== ENCOUNTER 2023-12-23 16:29 | Outpatient (CLI) | payer OTHER, SELFPAY ==
--- NOTE | ~2023-12-23 | US_ITS ---
US thyroid INDICATION: Left thyroid nodule TECHNIQUE: Real-time sonographic images of the thyroid gland were obtained. COMPARISON: No prior studies for comparison. FINDINGS: The right thyroid lobe measures 4.7 x 1.5 x 1.6 cm. The left thyroid lobe measures 4.6 x 1 .5 x 1.7 cm. There is normal echotexture and echogenicity throughout the thyroid gland. There is a so lid slightly hyperechoic wider than tall smoothly marginated mass without echogenic foci measuring 1. 8 x 1.6 x 1.2 cm, TR 3. Normal vascular flow is present. IMPRESSION: 1. Solid left thyroid nodule measuring 1.8 cm, TR 3 mildly suspicious. Recommend follow-up ultrasoun d in 12 months. Reviewed, dictated and finalized at location L. IMPRESSION: 1. Solid left thyroid nodule measuring 1.8 cm, TR 3 mildly suspicious. Recomme nd follow-up ultrasound in 12 months.
== END 2023-12-23 16:30 | disposition home or self-care (01) ==
LOC: ANHIMG 16:31
PROVIDERS: PCP Family Medicine; Visit Provider Family Medicine
DX: E04.1 Nontoxic single thyroid nodule (principal)
CPT/HCPCS: 76536

== ENCOUNTER 2024-06-16 02:12 | Day surgery (SDC) | payer OTHER, SELFPAY ==
[2024-05-29 10:54] VITALS: BMI 38.9
[2024-06-16 09:25] VITALS: BP 135/90; PULSE 64; RESP 18; TEMP 36.4; O2SAT 98; BMI 37.9
[2024-06-16] MEDS: LACTATED RINGERS 1,000 ML 150 ML IV CONT (09:50)
--- NOTE | 2024-06-16 10:11 | WPDANESEPPF ---
Anes - Initial Pre Proc Eval Procedure: Operation Date: 06/16/24 11:00 Proposed Procedures p Screening Colonoscopy - Artemio Naik DO Date/Time: 06/16/24 10:11 Surgeon: Artemio Naik DO Pre Op Diagnosis: Screening for malignant neoplasm of colon Patient Data Age: 58 Gender: F Height: 1.63 m Weight: 100.2 kg Last Vital Signs Temp 36.4 C L 06/16/24 09:25 Pulse 64 06/16/24 09:25 Resp 18 06/16/24 09:25 BP 135/90 06/16/24 09:25 Pulse Ox 98 06/16/24 09:25 O2 Del Method Room Air 06/16/24 09:25 Allergies Allergy/AdvReac Type Severity Reaction Status Date / Time lisinopril Allergy Mild Cough Verified 06/16/24 09:34 Home Medications Medication Instructions Recorded Confirmed Type omeprazole 20 mg capsule,delayed 20 mg PO DAILY 07/18/23 06/16/24 History release empagliflozin 10 mg tablet See Rx Instructions .Route 08/07/23 06/16/24 Rx (Jardiance) .COMPLEX #30 tabs hydrochlorothiazide 12.5 mg tablet 25 mg PO DAILY 10/10/23 06/16/24 History CPAP Equipment #1 ea 01/23/24 06/16/24 Rx carvedilol 6.25 mg tablet 6.25 mg PO BID 04/15/24 06/16/24 History telmisartan 80 mg tablet 40 mg PO DAILY 04/15/24 06/16/24 History furosemide 20 mg tablet (Lasix) 20 mg PO DAILY #90 tabs 05/05/24 06/16/24 Rx fluoxetine 60 mg tablet 60 mg PO DAILY #90 tabs 06/03/24 06/16/24 Rx Patient hx anesthesia problems: none Family hx anesthesia problems: none Results Review: All pre-operative results and documents have been reviewed as part of the pre-operative evaluation. [facility] Past Medical History Medical History Abnormal x-ray of spine Arthritis delivery delivered Chronic back pain Chronic knee pain Congestive heart failure Wentworth's disease PRES (posterior reversible encephalopathy syndrome) 07/07/2023 Vitamin D deficiency Surgical History Surgical History H/O: hysterectomy Family History Family History Father Cancer Mother Cancer Thyroid disorder Sibling Cancer Grandparent Cancer Social History Social History Smoking packs per day: 1 Smoking cigarettes per day: 20.0 Years smoked: 45 Smoking pack-years: 45.00 Smoking status: Former smoker Tobacco type: cigarettes Alcohol intake: current Alcohol use details: 1 pint a week Substance use: never Substance use type: does not use Do You Feel Safe in your Home?: Yes Lack of Transportation: No Lack of Food: Never True Current Housing: I Have Housing Concerned About Future Housing: No Difficulty Paying Gas/Electric Bills: No Difficulty Paying for Meds: No Currently Unemployed: No Education: Decline to Answer Difficulty w/ Childcare or Family Care: No Living arrangements: alone Spiritual care concerns: No Agree to blood products: Yes Anes - Eval Final PreProcedure Day of Procedure 06/16/24 10:11 Patient weight: obese Heart: regular rate and rhythm Lungs: clear to auscultation Airway: Mallampati scale class II Neurological: alert and oriented Last oral intake: >/= 8 hours ASA classification: IV Emergent: no Anesthetic plan: proceed Anesthesia type and monitoring: general GIVS and standard monitoring Results Review: All pre-operative results and documents have been reviewed as part of the pre-operative evaluation. Informed Consent: The patient's anesthetic plan and its attendant risks and benefits were discussed with the patient/family/POA. Questions were solicited and answers provided to the satisfaction of the patient/family/POA.
--- NOTE | 2024-06-16 11:03 | PM.IMHP ---
H&P: HPI History of Present Illness Date/Time: 06/16/24 11:03 Chief Complaint: screening for colorectal cancer Narrative: this is a 58-year-old woman who presents for colonoscopy. Her last colonoscopy was 9 years ago. She does have a family history of colon cancer in her sibling. She denies any hematochezia or melena. Review of Systems Review of Systems: All systems reviewed & are unremarkable except as noted in HPI and below Constitutional: Constitutional: Denies chills, Denies fever(s), Denies headache(s) and Denies weight loss Eyes: Eyes: Denies change in vision ENT: Denies dizziness, Denies headache(s), Denies neck mass and Denies throat swelling Cardiovascular: Cardiovascular: Denies chest pain, Denies lightheadedness and Denies dyspnea Respiratory: Respiratory: Denies cough, Denies dyspnea and Denies wheezing Gastrointestinal: Gastrointestinal: Denies abdominal pain, Denies change in bowel habits, Denies nausea and Denies vomiting Genitourinary: Genitourinary: Denies hematuria and Denies dysuria Musculoskeletal: Musculoskeletal: Reports as per HPI Integumentary/Breasts: Skin/Breast: Reports as per HPI Neurologic: Denies dizziness and Denies headache(s) Allergic/Immunologic: Allergic/Immunologic: Denies throat swelling and Denies wheezing PMF Past Medical History Medical History Abnormal x-ray of spine Arthritis delivery delivered Chronic back pain Chronic knee pain Congestive heart failure Omaha's disease PRES (posterior reversible encephalopathy syndrome) 07/07/2023 Vitamin D deficiency Surgical History Surgical History H/O: hysterectomy Family History Family History Father Cancer Mother Cancer Thyroid disorder Sibling Cancer Grandparent Cancer Social History Social History Smoking packs per day: 1 Smoking cigarettes per day: 20.0 Years smoked: 45 Smoking pack-years: 45.00 Smoking status: Former smoker Tobacco type: cigarettes Alcohol intake: current Alcohol use details: 1 pint a week Substance use: never Substance use type: does not use Do You Feel Safe in your Home?: Yes Lack of Transportation: No Lack of Food: Never True Current Housing: I Have Housing Concerned About Future Housing: No Difficulty Paying Gas/Electric Bills: No Difficulty Paying for Meds: No Currently Unemployed: No Education: Decline to Answer Difficulty w/ Childcare or Family Care: No Living arrangements: alone Spiritual care concerns: No Agree to blood products: Yes Meds Home Medications and Allergies Home Medications Medication Instructions Recorded Confirmed Type omeprazole 20 mg capsule,delayed 20 mg PO DAILY 07/18/23 06/16/24 History release empagliflozin 10 mg tablet See Rx Instructions .Route 08/07/23 06/16/24 Rx (Jardiance) .COMPLEX #30 tabs hydrochlorothiazide 12.5 mg tablet 25 mg PO DAILY 10/10/23 06/16/24 History CPAP Equipment #1 ea 01/23/24 06/16/24 Rx carvedilol 6.25 mg tablet 6.25 mg PO BID 04/15/24 06/16/24 History telmisartan 80 mg tablet 40 mg PO DAILY 04/15/24 06/16/24 History furosemide 20 mg tablet (Lasix) 20 mg PO DAILY #90 tabs 05/05/24 06/16/24 Rx fluoxetine 60 mg tablet 60 mg PO DAILY #90 tabs 06/03/24 06/16/24 Rx Allergies Allergy/AdvReac Type Severity Reaction Status Date / Time lisinopril Allergy Mild Cough Verified 06/16/24 09:34 Vital Signs Vital Signs - 24 hr 06/16/24 09:25 Temperature 97.5 F L Pulse Rate 64 Respiratory Rate 18 Blood Pressure 135/90 Pulse Oximetry 98 Oxygen Delivery Room Air Exam Const: General: no acute distress and alert Orientation/consciousness: patient oriented x3 HENMT: Head: normocephalic and atraumatic Ears: hearing
[2024-06-16 11:36] VITALS: BP 109/69; PULSE 65; RESP 18; O2SAT 99
[2024-06-16 11:46] VITALS: BP 122/75; PULSE 60; RESP 18; O2SAT 99
[2024-06-16 11:56] VITALS: BP 129/89; PULSE 60; RESP 19; O2SAT 100
== END 2024-06-16 12:30 | disposition home or self-care (01) ==
PROVIDERS: PCP Family Medicine; Visit Provider Surgery
PROC: 0DJD8ZZ Inspection of Lower Intestinal Tract, Via Natural or Artificial Opening Endoscopic (ICD-10-PCS; CPT 45378; principal; 2024-06-16 11:00)
DX: Z12.11 Encounter for screening for malignant neoplasm of colon (principal); D12.5 Benign neoplasm of sigmoid colon; Z80.0 Family history of malignant neoplasm of digestive organs; I50.9 Heart failure, unspecified; E24.9 Cushing's syndrome, unspecified; E55.9 Vitamin D deficiency, unspecified; Z87.891 Personal history of nicotine dependence; E66.9 Obesity, unspecified; Z68.37 Body mass index [BMI] 37.0-37.9, adult; Z79.84 Long term (current) use of oral hypoglycemic drugs
CPT/HCPCS: 45385; 88305; J2001; J2704; J7120

== ENCOUNTER 2024-12-29 15:26 | Outpatient (CLI) | payer OTHER, SELFPAY ==
--- NOTE | ~2024-12-29 | US_ITS ---
Thyroid ultrasound. Clinical History: Thyroid nodule COMPARISON: 12/23/2023 Findings: Real-time sonography of the thyroid gland was performed. The right lobe measures 3.3 x 1.3 x 1.5 cm. The left lobe measures 3.9 x 1.1 x 1.3 cm. The isthmus is 3 mm in AP diameter. There is a stable 1.4 x 0.9 x 1.37 hypoechoic solid circumscribed wider than tall nodule at the left lower pole. Impression: Stable left lower pole thyroid nodule, as detailed above.. Reviewed, dictated and finalized at location . Impression: Stable left lower pole thyroid nodule, as detailed above..
--- OUTSIDE RECORDS SUMMARY | 2024-12-29 16:54 | XMS_ITS | CONTINUITY OF CARE DOCUMENT ---
Author Name georgiacarolinaaishwarya Address Unknown Organization [facility] Address [address] [address] [place] [address] Phone [phone] Care Team Providers Care Dedicated Truck Driver Name Role Phone Jonas CHAMBERLAIN, Riley Unavailable [phone] Mounika Holland DO Unavailable Mounika Holland DO Unavailable [phone] INSURANCE PROVIDERS Payer name Policy type / Coverage type [place] red democrat [place] MED[place] Medicaid [id number]
--- OUTSIDE RECORDS SUMMARY | 2024-12-29 16:54 | XMS_ITS | Clinical Summary ---
Author Organization [facility] Address [address] [place] [address] Care Team Providers Care Therapeutic Case Manager Name Role Phone Mounika Holland Primary Care Provider + Allergies Active Allergy Reactions Criticality Noted Date Comments Lisinopril Other (See comments) Low 01/09/2022 Itching throat Medications omeprazole (PriLOSEC) 20 mg capsule Take 1 capsule (20 mg total) by mouth daily Active FLUoxetine (PROzac) 60 mg tabletIndications: Moderate episode of recurrent major depressive disorder (HCC) Take 1 tablet (60 mg total) by mouth daily 90 tablet 1 02/29/20 22 Active diclofenac sodium (VOLTAREN) 1 % gelIndications:[facility] neha osteoarthritis involving multiple joints Apply 4 g topically 4 (four) times a day as needed (knee pain) 100 g 02/29/20 22 Active Additional Information Patient not taking.Reported on 11/25/2024 folic acid (FOLVITE) 1 mg tablet Take 1 tablet (1 mg total) by mouth daily 30 tablet 07/11/20 23 Active Additional Information Patient not taking.Reported on 11/25/2024 miFEPRIStone (KORLYM) 300 mg tablet Take 1 tablet (300 mg total) by mouth 2 (two) times a day 07/10/20 23 Active Additional Information Patient not taking.Reported on 11/25/2024 thiamine (VITAMIN B1) 100 mg tablet Take 1 tablet (100 mg total) by mouth daily 30 tablet 07/11/20 23 Active Additional Information Patient not taking.Reported on 11/25/2024 hydroCHLOROthiazid e (HYDRODIURIL) 25 mg tablet Take 1 tablet (25 mg total) by mouth daily 30 tablet 11 10/09/19 24 Active Jardiance 10 mg tablet Take 1 tablet (10 mg total) by mouth daily 90 tablet 3 03/25/20 24 Active carvediloL (COREG) 6.25 mg tablet Take 1 tablet (6.25 mg total) by mouth 2 (two) times a day with meals 60 tablet 11 04/01/20 24 025 Active telmisartan (MICARDIS) 80 mg tablet Take 0.5 tablets (40 mg total) by mouth daily 04/07/20 24 025 Active potassium chloride ER (KLOR-CON) 20 mEq CR tablet Take 1 tablet (20 mEq total) by mouth daily 30 tablet 04/16/20 24 025 Active rosuvastatin (CRESTOR) 20 mg tablet Take 1 tablet (20 mg total) by mouth daily 30 tablet 06/04/20 24 025 Active dexAMETHasone (DECADRON) 1 mg tabletIndications: Hypercortisolemia Take 1 tablet at 11PM before an 8AM lab 1 tablet 07/10/20 Active Active Problems Problem Noted Date Diagnosed Date Other hyperlipidemia 07/10/2024 Hypertensive emergency 07/13/2023 PRES (posterior reversible encephalopathy syndro me) 07/07/2023 Overview (07/08/2023): Vitals/Labs: Admission BP of 209/168. Imaging: MRI findings consistent with PRES: FLAIR hyperintensities in the medial parietal and occipital lobes as well as around the lentiform nuclei. Medications: (1) 10 mg IV labetalol as needed every 15 minutes for SBP > 160; (2) 10 mg IV hydralazine as needed every 15 minuts for SBP > 160, HR < 70. Other Management: Educated patient on reducing risk factors contributing to hypertension, including reducing alcohol consumption. >>OVERVIEW FOR SEIZURE (HCC) WRITTEN ON 07/08/2023 7:55 PM BY KENYA ANDERSON Likely secondary to PRES. Annual physical exam 02/28/2022 Assessment & Plan (02/28/2022 2:25 PM CDT): Annual physical exam with wellness labs ordered today in clinic. UTD on all vaccinations aside per guidelines. Further follow-up pending results of labs. RTC in 1 year for next annual exam or in the interim prn. Gastroesophageal reflux disease without esophagi tis 02/28/2022 Assessment & Plan (02/28/2022 2:33 PM CDT): GERD improving with LD PPI use dietary modifications Complimented weight loss minimizing reflux sxs Continue with management as prior Open to bridging to H2 wilmer if osteoporotic and/or w/ cont wt loss Red flags report discussed RTC 6 months Elevated liver function tests 02/28/2022 Overview (02/28/2022): AB US 01/19: IMPRESSION: 1. Mild hepatic steatosis. Otherwise, normal abdominal sonogram. Assessment & Plan (02/28/2022 1:45 PM CDT): Incidentally noted elevated alk-phos, AST during recent CPE labs-detailed above Subsequent AB US very mild hepatic steatosis Recommended decreasing EtOH use, low-fat diet, wt loss Clinically asymptomatic Encourage prior plan recommending repeat labs 3-6 months for surveillance Compression fracture of body of thoracic vertebr a 02/28/2022 Overview (02/28/2022): 01/19 L spine xray: IMPRESSION: 1. Age-indeterminate compression fracture deformities involving the T12-L2 and L4 vertebral bodies. Assessment & Plan (02/28/2022 2:36 PM CDT): Suspected atraumatic compression fracture Multiple RF for compression fractures D/T prior tobacco use Followed by pain management Pain gradually abating without therapies- agreeable to await before pursuing another opinion Discussed TLSO brace, exercises for maintenance hopeful for routine healing, focus on bone health DEXA scan to pursue given atraumatic onset Subclinical hypothyroidism 02/28/2022 Assessment & Plan (02/28/2022 2:39 PM CDT): Subclinical hypothyroidism per recent TFT Beyond this time, clinically stable deferring treatment given normal T4, uncontrolled HTN Routine TFT monitoring RTC 6 months Uncontrolled hypertension 01/09/2022 Assessment & Plan (02/28/2022 2:26 PM CDT): Hypertension is improving with treatment and borderline controlled Dietary sodium restriction. Weight loss. Regular aerobic exercise. Medication changes per orders. Ambulatory blood pressure monitoring. Blood pressure will be reassessed in 4 weeks. Increase amlodipine 10mg every day;SER CMP today recheck renal Fx Assessment & Plan (01/09/2022 4:12 PM CDT): Hypertension is uncontrolled Dietary sodium restriction. Weight loss. Regular aerobic exercise. Medication changes per orders. Ambulatory blood pressure monitoring. Reduced EtOH consumption + olmesarta/HCTZ 40/25mg every day;SER Cnt amlodipine as prior prescribed CMP, TSH today Blood pressure will be reassessed in 4 weeks. Moderate episode of recurrent major depressive d isorder 01/09/2022 Assessment & Plan (02/28/2022 2:24 PM CDT): Psychological condition is borderline controlled w/o SI, good support at home Regular aerobic exercise. Medication changes per orders. Referral to psychological counseling. Psychological condition will be reassessed in 4 weeks. Increase fluoxetine 60mg QDay; SER, expectations in tx discussed Assessment & Plan (01/09/2022 4:11 PM CDT): Psychological condition is borderline controlled. Continue current treatment regimen. Regular aerobic exercise. Referral to psychological counseling. Psychological condition will be reassessed in 4 weeks. Refractory depression secondary to recent personal loss, anticipatory grievance w/o suicidal ideation Good support through family and friends at home Desire to continue with fluoxetine as prior prescribed Counseling resources provided RTC 1 month or sooner p.r.n. Primary osteoarthritis involving multiple joints 01/09/2022 Assessment & Plan (02/28/2022 2:22 PM CDT): Persistent BL knee pain Hx of severe OA per pt- awaiting xrays to confirm\ Referral to ortho for further eval given prior success w/ steroid injection Trial Voltaren, exercises provided Assessment & Plan (01/09/2022 4:16 PM CDT): Chronic, primarily BL knees Prior managed with steroid injections, norco Current exacerbation D/T LBP; exam limited D/T multiple concerns to address Imaging deferred given chronicity and primary concern of LBP Trial gabapentin as detailed above Discussed alternatives to OTC NSAIDs, meloxicam or Celebrex, trial OTC topical analgesics, he declined referral to PT and/or podiatry RTC 1 month for re-eval History of tobacco use disorder 01/09/2022 Assessment & Plan (02/28/2022 1:58 PM CDT): Achieved cessation 10 years ago w/o known chronic lung disease No prior lung CT screening-agreeable to complete if recommended Will discuss further at CPE in 1 month along w/ vaccinations Assessment & Plan (01/09/2022 4:17 PM CDT): A cheese cessation 10 years ago w/o known chronic lung disease No prior lung CT screening-agreeable to complete if recommended Will discuss further at CPE in 1 month along w/ vaccinations History of total abdominal h ysterectomy and bilateral salpingo-oophorectomy 01/09/2022 Overview (01/09/2022): In 2007 Assessment & Plan (01/09/2022 4:23 PM CDT): In 2007 No vasomotor sxs or post menopausal bleeding- sxs to report discussed Family history of pancreatic cancer 01/09/2022 Assessment & Plan (01/09/2022 4:19 PM CDT): Long Hx of pancreatic cancer in both paternal and maternal sides Modifiable risk stratification discussed such as Wt, diet & ETOH reduction & DM screening w/ labs as detailed below Referral to [facility] genetics to discuss further recommendations for screening Further direction pending labs ETOH abuse 01/09/2022 Assessment & Plan (02/28/2022 2:32 PM CDT): Marginal improvement in last 6 wks- encouraged cont cessation (Longstanding ETOH abuse>8-10oz/day) COnt to support efforts- again offered resources for outreach Verbalized awareness, concerns and agreeable to cognizant, working toward change Close surveillance of LFT RTC 1 month Assessment & Plan (01/09/2022 4:23 PM CDT): Longstanding ETOH abuse>8-10oz/day Verbalized awareness, concerns and agreeable to cognizant, working toward change Discuss risk associated with persistent EtOH use d/t FHx, HTN, etc Counseling resources provided in clinic today discussing connecting with AA for further support Re-eval 1 month Body mass index 40.0-44.9, adult (CMS/[facility]) 01/09 Assessment & Plan (02/28/2022 2:35 PM CDT): Obesity is improving with lifestyle modifications. Discussed the patient's BMI. The BMI is above average; no BMI management plan is appropriate. General weight loss/lifestyle modification strategies discussed (elicit support from others; identify saboteurs; non-food rewards, etc). Counseled on dietary options including mediterranean diet and intermittent fasting Informal exercise measures discussed, e.g. taking stairs instead of elevator. Regular aerobic exercise program discussed. Pharmacotherapy as ordered. Assessment & Plan (01/09/2022 4:21 PM CDT): Verbalized understanding concerns of current lifestyle as no current diet or exercise regimen Discussed increasing weekly aerobic activity slowly over the upcoming weeks, months working toward weight loss given LBP limitations Dietary modifications discussed in detail TSH, CMP, A1c with upcoming labs pending further direction Will continue to support lifestyle modifications in connect with specialist if/when warranted RTC 1 month Systolic murmur 01/09/2022 Assessment & Plan (02/28/2022 1:47 PM CDT): Historically noted w/o prior echocardiogram Clinically asymptomatic Encouraged scheduling TTE for baseline in further evaluation of valvular disease Assessment & Plan (01/09/2022 4:20 PM CDT): Historically noted w/o prior echocardiogram Audibly physiologic murmur TTE for baseline and further evaluation of LE edema Resolved Problems Problem Noted Date Diagnosed Date Resolved Date Chronic bilateral low back p ain with bilateral sciatica 01/09/2022 02/28/2022 Assessment & Plan (01/09/2022 4:15 PM CDT): Subacute on chronic No identifiable acute injury, daily, known overuse w/ hx of DJD X-ray today given chronicity and for baseline Referral to both pain management & ortho phys to discuss alternatives, injections d/t prior success Discuss concerns with use of narcotics for pain Referral to PT for adjunct management relief-amenable to alternatives D/T concerns-trial gabapentin gradually increasing does over the next week; SER Discussed prescription strength NSAID-deferred today having relief with gabapentin, heat, topical analgesics Work note excusing from 01/09-01/14 RTC 1 month or sooner prn Morbid (severe) obesity due to excess calories 01/09/2022 01/09/2022 Encounters Date Type Department Care Team Description 11/25/2024 11:30 AM LUSTER REPAIRER Office Visit [facility] [address] [place] [address] [place] [address] Rater, EM Russell Hypertension, essential (Primary Dx); Uncontrolled hypertension; Congestive heart failure, unspecified HF chronicity, unspecified heart failure type (HCC) from Last 3 Months Surgical History Surgery Date Site/Laterality Comments TOTAL ABDOMINAL HYSTERECTOMY W/ BILATERAL SALPINGOOPHORECTOMY 09/30/2007 - 09/29/2008 SECTION Medical History Medical History Date Comments Hypertension Depression Arthritis Alcoholism (HCC) High risk for cervical cancer Family History Medical History Relation Name Comments Cancer Brother Stroke Brother Cancer Father Hypertension Father Pancreatic cancer Father Pancreatic cancer Maternal Grandmother Cancer Mother Thyroid disease Mother Pancreatic cancer Paternal Grandmother Pancreatic cancer Paternal Half-Sister Cancer Sister Colon cancer Sister Stroke Sister Thyroid disease Sister Breast cancer Neg Hx Coronary artery disease Neg Hx Diabetes type II Neg Hx Relation Name Status Comments Brother Father Maternal Grandmother Mother Paternal Grandmother Paternal Half-Sister Sister Social History Tobacco Use Types Packs/Day Years Used Date Smoking Tobacco: Former Cigarettes Q uit: 2011 Smokeless Tobacco: Never Tobacco Cessation:Counseling Given: No AUDIT-C Answer Date Recorded Q1: How often do you have a drink containing alcohol? 4 or more times a week 01/18/2022 Q2: How many drinks containi ng alcohol do you have on a typical day when you are drinking? 1 or 2 Frequency of Binge Drinking Not on file 12/30 PHQ-2 Answer Date Recorded PHQ-2 Total Score (If total score is 3 or more points, staff should administer the PHQ-9) 4 02/28/2022 Personal Safety Answer Date Recorded Have you ever been in or are you currently in a harmful physical or emotional relationship or is someone making you feel afraid or unsafe? 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 Not on file Not on file Obstetrics History Last Filed Vital Signs Vital Sign Reading Time Taken Comments Blood Pressure 127/83 11/25/2024 11:27 AM LUSTER REPAIRER Pulse 76 11/25/2024 11:27 AM LUSTER REPAIRER Temperature 36.6 C (97.8 F) 07/10/2024 3:48 PM CDT Respiratory Rate 18 07/13/2023 11:38 AM CDT Oxygen Saturation 100% 11/25/2024 11:27 AM LUSTER REPAIRER Inhaled Oxygen Concentration - - Weight 102.1 kg (225 lb) 11/25/2024 11:27 AM LUSTER REPAIRER Height 161.3 cm (5' 3.5 ) 11/25/2024 11:27 AM CS T Body Mass Index 39.23 11/25/2024 11:27 AM LUSTER REPAIRER Plan of Treatment Scheduled Procedures Name Priority Associated Diagnoses Date/Ti me COLONOSCOPY Encounter for screening for malignant neoplasm of colon COLONOSCOPY Encounter for follow-up surveillance of colon cancer Health Maintenance Due Date Last Done Comments Breast Cancer Screening-Mammogram 1964 Colon Cancer Screening-Colonoscopy 1965 DTaP/Tdap/Td Vaccine (1 - Tdap) 1975 Hepatitis B Screening 1982 Zoster Vaccine (1 of 2) 2014 Depression Screening 02/28/2023 02/28/2022 Regular Well Visit/Exam 18-64 02/28/2023 02/28/2022 Covid-19 Vaccine (2023-2 5 season) 2024 06/29/2023, 09/02/2022, 07/13/2021 Influenza Vaccine (#1) 2024 3, 07/19/2022 Hepatitis C Screening Completed 02/28/2022 Pneumococcal vaccine <65 Aged Out No longer eligible based on patient's age to complete this topic Goals Goal Patient Goal Type Associated Problems Recent Progress Patient-Stated? Author CCM Chronic Pain Care Plan Chronic Care Management Worsening( 12:32 PM CDT) Lety Olivarez, RN Note: Problem: Chronic Pain Goals: 1. Minimize further functional decline 2. Maximize quality of life 3. Control pain Strategies: - Activity/exercise program recommendation - Conservative stepwise pain medicine strategy with multi-disciplinary approach - Recommend healthy lifestyle strategies and compensatory methods as needed Procedures Procedure Name Priority Date/Time Associated Diagnosis Comments HEPATITIS PANEL, ACUTE Routine 02/28/2022 2:52 PM CDT Elevated liver function tests from Last 3 Months or Most Recently Relevant to Health Maintenance Results * Hepatitis panel, acute (02/28/2022 2:52 PM CDT) Hep A IgM Nonreactive Nonreactive [facility] Comment: Interpretive Data: If Hep A IgM Ab is reported as Equivocal, a new sample should be drawn in two weeks for testing. Current interpretive data was last revised on 19. Hep B core IgM Nonreactive Nonreactive [facility] Comment: Interpretive Data If HepB Core IgM Ab is reported as Equivocal, a new sample should be drawn in two weeks for testing. Current interpretive data was last revised on 19. Hep C Ab Nonreactive Nonreactive [facility] Comment:Antibodies to HCV no t detected. Does NOT exclude the possibility of recent exposure to HCV. HepBsAg Nonreactive Nonreactive [facility] Blood 02/28/2022 2:52 PM CDT 02/28/2022 6:46 PM CDT Morenita Juarez NP LAB MICROBIOLOGY - GENERAL O RDERABLES Edited Result - Final [facility] Department [place] [address] from Last 3 Months or Most Recently Relevant to Health Maintenance Insurance [facility] [facility] [employer] Address: [facility] [address] [place] [address] [facility] Advance Directives For more information, please contact: [phone] * Full Code (Latest Code Status on File) Date Activated Date Inactivated Comments 07/07/2023 2:21 AM 07/13/2023 6:01 PM Care Teams Therapeutic Case Manager Relationship Specialty Start Date End Date Mounika Holland DO PCP - General Family Medicine 07/10/23
--- OUTSIDE RECORDS SUMMARY | 2024-12-29 16:54 | XMS_ITS | Encounter Summary ---
Author Organization [facility] Address [address] [facility] [address] Phone Care Team Providers Care Internal Medicine Physician Assistant Name Role Phone Susan Altamirano NP Primary Care Provider [phone] Mounika Holland DO Primary Care Provider + Encounter Details Date Type Department Care Team (Latest Contact Info) Description 03/01/2023 Orders Only [facility] Scanning, Provider Social History Tobacco Use Types Packs/Day Years Used Date Smoking Tobacco: Former Cigarettes Q uit: 2010 Smokeless Tobacco: Never AUDIT-C Answer Date Recorded Q1: How often [...] staff should administer the PHQ-9) 4 02/28/2022 Comments No Sex and Gender Information Value Date Recorded Sex Assigned at Not on file Legal Sex Female 8:50 PM HEALTHCARE LIAISON Gender Identity Not on file Sexual Orientation Not on file 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 file Not on file Not on file documented as of this encounter Plan of Treatment Scheduled Procedures Name Priority Associated Diagnoses Date/Ti me COLONOSCOPY Encounter for screening for malignant neoplasm of colon COLONOSCOPY Encounter for follow-up surveillance of colon cancer documented as of this encounter Goals Goal Patient Goal Type Associated Problems [...] lifestyle strategies and compensatory methods as needed documented as of this encounter Procedures Procedure Name Priority Date/Time Associated Diagnosis Comments SCAN - LABS 03/01/2023 documented in this encounter Results * SCAN - LABS (03/01/2023) us Provider Scanning Final Result documented in this encounter Visit Diagnoses Not on filedocumented in this encounter Care Teams Internal Medicine Physician Assistant Relationship Specialty Start Date End Date Susan Altamirano NP PCP - General Internal Medicine 07/07/23 07/09/23 Mounika Holland DO PCP - General Family Medicine 07/10/23 documented as of this encounter
--- OUTSIDE RECORDS SUMMARY | 2024-12-29 16:54 | XMS_ITS | Referral Summary ---
Author Organization [facility] Address [address] [place] [address] Care Team Providers Care High Frequency Mill Operator Name Role Phone Mounika Holland Primary Care Provider + Encounters Date Type Department Care Team Description 11/25/2024 11:30 AM SOYBEAN GROWER Office Visit [facility] Cardiology [address] 8th [place] [address] [place] [address] Rater, EM Russell Hypertension, essential (Primary Dx); Uncontrolled hypertension; Congestive heart failure, unspecified HF chronicity, unspecified heart failure type (HCC) from Last 3 Months Allergies Active Allergy Reactions Criticality Noted Date [...] total) by mouth daily 30 tablet 11 07/11/20 23 Active Additional Information Patient not taking.Reported on 11/25/2024 miFEPRIStone (KORLYM) 300 mg tablet Take 1 tablet (300 mg total) by mouth 2 (two) times a day 07/10/20 Active Additional Information Patient not taking.Reported on 11/25/2024 thiamine (VITAMIN B1) 100 mg tablet Take 1 tablet (100 mg total) by mouth daily 30 tablet 11 07/11/20 23 Active Additional Information Patient not [...] times a day with meals 60 tablet 04/01/20 24 025 Active telmisartan (MICARDIS) 80 [...] before an 8AM lab 1 tablet 07/10/20 24 Active Active Problems Problem Noted Date Diagnosed [...] given prior success w/ steroid injection Trial katiuska Palacios provided Assessment & Plan (01/09/2022 4:16 PM [...] w/ labs as detailed below Referral to [facility] genetics to discuss further recommendations for screening [...] 1 month Body mass index 40.0-44.9, adult (CMS/HCC) 01/09 Assessment & Plan (02/28/2022 2:35 PM [...] obesity due to excess calories 01/09/2022 01/09/2022 Social History Tobacco Use Types Packs/Day Years Used Date Smoking Tobacco: Former Cigarettes Q uit: 2010 Smokeless Tobacco: Never Tobacco Cessation:Counseling Given: No [...] on file Legal Sex Female 8:50 PM SOYBEAN GROWER Gender Identity Not on file Sexual Orientation Not on file 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 file Not on file Not on file Last Filed Vital Signs Vital Sign Reading Time Taken Comments Blood Pressure 127/83 11/25/2024 11:27 AM SOYBEAN GROWER Pulse 76 11/25/2024 11:27 AM SOYBEAN GROWER Temperature 36.6 C (97.8 F) 07/10/2024 3:48 PM CDT Respiratory Rate 18 07/13/2023 11:38 AM CDT Oxygen Saturation 100% 11/25/2024 11:27 AM SOYBEAN GROWER Inhaled Oxygen Concentration - - Weight 102.1 kg (225 lb) 11/25/2024 11:27 AM SOYBEAN GROWER Height 161.3 cm (5' 3.5 ) 11/25/2024 11:27 AM CS T Body Mass Index 39.23 11/25/2024 11:27 AM SOYBEAN GROWER Plan of Treatment Scheduled Procedures Name Priority Associated Diagnoses Date/Ti me COLONOSCOPY Encounter for screening for malignant neoplasm of colon COLONOSCOPY Encounter for follow-up surveillance of colon cancer Goals Goal Patient Goal Type Associated Problems Recent Progress Patient-Stated? Author CCM Chronic Pain Care Plan Chronic Care Management Worsening( 12:32 PM CDT) No Lety Machado, RN Note: Problem: Chronic Pain Goals: 1. [...] PM CDT) Hep A IgM Nonreactive Nonreactive [facility] Comment: Interpretive Data: If Hep A IgM Ab is reported as Equivocal, a new sample should be drawn in two weeks for testing. Current interpretive data was last revised on 19. Hep B core IgM Nonreactive Nonreactive [facility] Comment: Interpretive Data If HepB Core IgM Ab is reported as Equivocal, a new sample should be drawn in two weeks for testing. Current interpretive data was last revised on 19. Hep C Ab Nonreactive Nonreactive [facility] Comment:Antibodies to HCV no t detected. Does NOT exclude the possibility of recent exposure to HCV. HepBsAg Nonreactive Nonreactive [facility] Blood 02/28/2022 2:52 PM CDT 02/28/2022 6:46 PM CDT us Morenita Juarez NP LAB MICROBIOLOGY - GENERAL O RDERABLES Edited Result - Final [facility] Department [place] [address] from Last 3 Months or Most Recently Relevant to Health Maintenance Insurance [facility] [employer] HE[employer] PLANS Address: [facility] [id number] [place] [address] LOCAL PLUS IN [facility] Advance Directives For more information, please contact: [phone] * Full Code (Latest Code Status on File) Date Activated Date Inactivated Comments 07/07/2023 2:21 AM 07/13/2023 6:01 PM Care Teams High Frequency Mill Operator Relationship Specialty Start Date End Date Mounika Holland DO PCP - General Family Medicine 07/10/23
== END 2024-12-29 15:27 | disposition home or self-care (01) ==
LOC: ANHIMG 15:26
PROVIDERS: PCP Family Medicine; Visit Provider Family Medicine
DX: E04.1 Nontoxic single thyroid nodule (principal)
CPT/HCPCS: 76536

== ENCOUNTER 2024-12-31 15:58 | Outpatient (CLI) | payer OTHER, SELFPAY ==
--- NOTE | ~2024-12-31 | XR_ITS ---
EXAM: XR knee RT min 4V, XR knee LT min 4V DATE: 12/31/2024 16:16 HISTORY: Chronic knee pain . COMPARISON: 05/31/2022. FINDINGS: Decreased mineralization. No fracture or dislocation. No lytic or blastic lesion. Moderate bilateral medial joint space narrowing, slightly worse on the left. Moderate tricompartmental left a nd moderate-severe tricompartmental right osteophytosis. No erosion or periosteal change. Moderate ri ght and small left joint effusions. IMPRESSION: Bilateral tricompartmental knee osteoarthritis. Reviewed, dictated and finalized at location K. IMPRESSION: Bilateral tricompartmental knee osteoarthritis.
--- OUTSIDE RECORDS SUMMARY | 2024-12-31 16:02 | XMS_ITS | Referral Summary ---
Author Organization [facility] Address [address] [place] [address] Care Team Providers Care Hat Copyist Name Role Phone Mounika Holland Primary Care Provider + Encounters Date Type Department Care Team Description 11/25/2024 11:30 AM BINDERY CUTTER OPERATOR Office Visit [facility] Cardiology [address] 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 Not on file Not on file Last Filed Vital Signs Vital Sign Reading Time Taken Comments Blood Pressure 127/83 11/25/2024 11:27 AM BINDERY CUTTER OPERATOR Pulse 76 11/25/2024 11:27 AM BINDERY CUTTER OPERATOR Temperature 36.6 C (97.8 F) 07/10/2024 3:48 PM CDT Respiratory Rate 18 07/13/2023 11:38 AM CDT Oxygen Saturation 100% 11/25/2024 11:27 AM BINDERY CUTTER OPERATOR Inhaled Oxygen Concentration - - Weight 102.1 kg (225 lb) 11/25/2024 11:27 AM BINDERY CUTTER OPERATOR Height 161.3 cm (5' 3.5 ) 11/25/2024 11:27 AM CS T Body Mass Index 39.23 11/25/2024 11:27 AM BINDERY CUTTER OPERATOR Plan of Treatment Scheduled Procedures Name Priority [...] on 19. Hep C Ab Nonreactive [facility] Comment:Antibodies to HCV no t detected. Does NOT exclude the possibility of recent exposure to HCV. HepBsAg Nonreactive Nonreactive [facility] Blood 02/28/2022 2:52 PM CDT 02/28/2022 6:46 PM CDT us Morenita Juarez NP LAB MICROBIOLOGY - GENERAL O RDERABLES Edited Result - Final [facility] One [facility] [place] [address] from Last 3 Months or Most Recently Relevant to Health Maintenance Insurance [facility] EMPL[employer]EE HEALTH PLANS Address: [facility] [id number] [place] [address] LOCAL PLUS IN [facility] Advance Directives For more information, please contact: [phone] * Full Code (Latest Code Status on File) Date Activated Date Inactivated Comments 07/07/2023 2:21 AM 07/13/2023 6:01 PM Care Teams Hat Copyist Relationship Specialty Start Date End Date Mounika Holland DO PCP - General Family Medicine 07/10/23
--- OUTSIDE RECORDS SUMMARY | 2024-12-31 16:02 | XMS_ITS | CONTINUITY OF CARE DOCUMENT ---
Author Name georgiacarolinaaishwarya Address Unknown Organization [facility] Address [address] [place] [address] Phone [phone] Care Team Providers Care Preschool Adviser Name Role Phone Jonas CHAMBERLAIN, Riley Unavailable Mounika Holland DO Unavailable Mounika Holland DO Unavailable [phone] INSURANCE PROVIDERS Payer name Policy type / Coverage type [place] red constitution party ID [place] MEDICAID Medicaid [id number]
--- OUTSIDE RECORDS SUMMARY | 2024-12-31 16:02 | XMS_ITS | Clinical Summary ---
Author Organization [facility] Clinical Associates [facility] Address [address] [place] [address] Care Team Providers Care Snow Ranger Name Role Phone Mounika Holland Primary Care [...] w/ labs as detailed below Referral to [facility] genetics to discuss further recommendations for [...] 1 month Body mass index 40.0-44.9, adult (CMS/[facility], [facility]) 01/09 Assessment & Plan (02/28/2022 2:35 PM [...] Department Care Team Description 11/25/2024 11:30 AM ANALYTICAL DATA SCIENTIST Office Visit [facility] Cardiology [address] [facility] 8th [place] [address] [place] [address] Rater, EM Russell Hypertension, essential (Primary Dx); [...] on file Legal Sex Female 8:50 PM ANALYTICAL DATA SCIENTIST Gender Identity Not on file Sexual Orientation Not on file Occupation Industry Job Start Date Job End Date [employer] Not on file Not on file Not on file Obstetrics History Last Filed Vital Signs Vital Sign Reading Time Taken Comments Blood Pressure 127/83 11/25/2024 11:27 AM ANALYTICAL DATA SCIENTIST Pulse 76 11/25/2024 11:27 AM ANALYTICAL DATA SCIENTIST Temperature 36.6 C (97.8 F) 07/10/2024 3:48 PM CDT Respiratory Rate 18 07/13/2023 11:38 AM CDT Oxygen Saturation 100% 11/25/2024 11:27 AM ANALYTICAL DATA SCIENTIST Inhaled Oxygen Concentration - - Weight 102.1 kg (225 lb) 11/25/2024 11:27 AM ANALYTICAL DATA SCIENTIST Height 161.3 cm (5' 3.5 ) 11/25/2024 11:27 AM CS T Body Mass Index 39.23 11/25/2024 11:27 AM ANALYTICAL DATA SCIENTIST Plan of Treatment Scheduled Procedures Name Priority [...] PM CDT) Hep A IgM Nonreactive Nonreactive [facility] Comment: Interpretive Data: If Hep A IgM Ab is reported as Equivocal, a new sample should be drawn in two weeks for testing. Current interpretive data was last revised on 19. Hep B core IgM Nonreactive Nonreactive [facility] Comment: Interpretive Data If HepB Core IgM Ab is reported as Equivocal, a new sample should be drawn in two weeks for testing. Current interpretive data was last revised on 19. Hep C Ab Nonreactive Nonreactive [facility] Comment:Antibodies to HCV no t detected. Does NOT exclude the possibility of recent exposure to HCV. HepBsAg Nonreactive Nonreactive [facility] Blood 02/28/2022 2:52 PM CDT 02/28/2022 6:46 PM CDT Morenita Juarez NP LAB MICROBIOLOGY - GENERAL O RDERABLES Edited Result - Final [facility] One [facility] [place] [address] from Last 3 Months or Most Recently Relevant to Health Maintenance Insurance PENDING SALE [facility] Advance Directives For more information, please contact: [phone] * Full Code (Latest Code Status on File) Date Activated Date Inactivated Comments 07/07/2023 2:21 AM 07/13/2023 6:01 PM Care Teams Snow Ranger Relationship Specialty Start Date End Date Mounika Holland DO PCP - General Family Medicine 07/10/23
--- OUTSIDE RECORDS SUMMARY | 2024-12-31 16:02 | XMS_ITS | Encounter Summary ---
Author Organization 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
== END 2024-12-31 15:59 | disposition home or self-care (01) ==
PROVIDERS: PCP Family Medicine; Visit Provider Family Medicine
DX: M17.0 Bilateral primary osteoarthritis of knee (principal)
CPT/HCPCS: 73564

== ENCOUNTER 2025-01-17 10:35 | Outpatient (CLI) | payer OTHER, SELFPAY ==
--- NOTE | ~2025-01-17 | MR_ITS ---
MRI of the lumbar spine Clinical History: Back pain Technique: Axial T2-weighted images, and sagittal T1-weighted, T2-weighted, and T2 fat-sat images wer e acquired. COMPARISON: 07/07/2022 Findings: There are chronic compression fractures of T11, T12, L1, L2, and L4. No acute marrow edema evident. Osseous alignment is essentially stable from prior exam. No suspicious bone marrow signal ab normality seen. At L1-L2, there is minimal disc bulge and mild facet arthropathy. No central canal stenosis. There is moderate left neural foraminal narrowing. Right neural foramen preserved. At L2-L3, there is mild diffuse disc bulge with mild facet arthropathy. No central canal stenosis. Th ere is mild bilateral neural foraminal narrowing. At L3-L4, there is mild diffuse disc bulge, with mild facet arthropathy. There is mild central canal stenosis. There is moderate left neural foraminal narrowing. There is advanced right neural foraminal narrowing. At L4-L5, there is mild disc bulge with mild to moderate facet arthropathy. No central canal stenosis . There is mild to moderate right neural foraminal narrowing. There is minimal left neural foraminal narrowing. At L5-S1, there is mild disc bulge and mild facet arthropathy. No central canal stenosis. There is mo derate right neural foraminal narrowing and mild left neural foraminal narrowing. Paravertebral soft tissues are unremarkable. Impression: Chronic compression fractures of T11, T12, L1, L2, L4. Stable osseous alignment as compared to prior exam. Moderate degenerative spondylosis overall, as detailed above. Reviewed, dictated and finalized at [facility] Impression: Chronic compression fractures of T11, T12, L1, L2, L4. Stable osseous alignment as compared to prior exam. Moderate degenerative spondylosis overall, as detailed above.
--- OUTSIDE RECORDS SUMMARY | 2025-01-17 10:50 | XMS_ITS | Encounter Summary ---
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
--- OUTSIDE RECORDS SUMMARY | 2025-01-17 10:50 | XMS_ITS | Clinical Summary ---
Author Organization [facility] Address [address] [place] [address] Care Team Providers Care Etcher Printed Circuit Boards Name Role Phone Mounika Holland Primary Care [...] w/ labs as detailed below Referral to [facility] genetics to discuss further recommendations [...] 1 month Body mass index 40.0-44.9, adult (CMS/[facility]) 01/09 Assessment & Plan (02/28/2022 2:35 PM [...] Department Care Team Description 11/25/2024 11:30 AM WEAVER DOBBY LOOM Office Visit [facility] Cardiology [address] 8th [place] [address] [place] [address] Rater, EM Russell Hypertension, essential (Primary Dx); [...] on file Legal Sex Female 8:50 PM WEAVER DOBBY LOOM Gender Identity Not on file Sexual Orientation Not on file 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 Not on file Not on file Obstetrics History Last Filed Vital Signs Vital Sign Reading Time Taken Comments Blood Pressure 127/83 11/25/2024 11:27 AM WEAVER DOBBY LOOM Pulse 76 11/25/2024 11:27 AM WEAVER DOBBY LOOM Temperature 36.6 C (97.8 F) 07/10/2024 3:48 PM CDT Respiratory Rate 18 07/13/2023 11:38 AM CDT Oxygen Saturation 100% 11/25/2024 11:27 AM WEAVER DOBBY LOOM Inhaled Oxygen Concentration - - Weight 102.1 kg (225 lb) 11/25/2024 11:27 AM WEAVER DOBBY LOOM Height 161.3 cm (5' 3.5 ) 11/25/2024 11:27 AM CS T Body Mass Index 39.23 11/25/2024 11:27 AM WEAVER DOBBY LOOM Plan of Treatment Scheduled Procedures Name Priority [...] Well Visit/Exam 18-64 02/28/2023 02/28/2022 Covid-19 Vaccine ( - 2023-2 5 season) 2024 06/29/2023, 09/02/2022, 07/13/2021 Influenza Vaccine (Season Ended) 2025 06/29/2023, 07/19/2022 Hepatitis C Screening Completed 02/28/2022 Pneumococcal [...] PM CDT) Hep A IgM Nonreactive Nonreactive [facility] Comment: Interpretive Data: If Hep A IgM Ab is reported as Equivocal, a new sample should be drawn in two weeks for testing. Current interpretive data was last revised on 19. Hep B core IgM Nonreactive Nonreactive [facility] Comment: Interpretive Data If HepB Core IgM Ab is reported as Equivocal, a new sample should be drawn in two weeks for testing. Current interpretive data was last revised on 19. Hep C Ab Nonreactive Nonreactive [facility] Comment:Antibodies to HCV no t detected. Does NOT exclude the possibility of recent exposure to HCV. HepBsAg Nonreactive Nonreactive [facility] Blood 02/28/2022 2:52 PM CDT 02/28/2022 6:46 PM CDT Morenita Juarez NP LAB MICROBIOLOGY - GENERAL O RDERABLES Edited Result - Final [facility] One [facility] Department [place] [address] from Last 3 Months or Most Recently Relevant to Health Maintenance Insurance [facility] H[facility]/PPO Address: [facility] [id number] [place] [address] [facility] Advance Directives For more information, please contact: [phone] * Full Code (Latest Code Status on File) Date Activated Date Inactivated Comments 07/07/2023 2:21 AM 07/13/2023 6:01 PM Care Teams Etcher Printed Circuit Boards Relationship Specialty Start Date End Date Mounika Holland DO PCP - General Family Medicine 07/10/23
--- OUTSIDE RECORDS SUMMARY | 2025-01-17 10:50 | XMS_ITS | CONTINUITY OF CARE DOCUMENT ---
Author Name georgiacarolinaaishwarya Address Unknown Organization [facility] Address [address] [place] [address] Phone [phone] Care Team Providers Care Professor Of Biblical Studies Name Role Phone Jonas CHAMBERLAIN, Riley Unavailable Mounika Holland DO Unavailable [phone] Mounika Holland DO Unavailable INSURANCE PROVIDERS Payer name Policy type / Coverage type [place] red democrat ID [place] MEDICAID Medicaid [id number]
--- OUTSIDE RECORDS SUMMARY | 2025-01-17 10:50 | XMS_ITS | Referral Summary ---
Author Organization [facility] Address [address] [place] [address] Care Team Providers Care Fac Engineer Name Role Phone Mounika Holland Primary Care Provider + Encounters Date Type Department Care Team Description 11/25/2024 11:30 AM MAT WORKER Office Visit [facility] Cardiology 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 Hep C Ab Nonreactive [facility] Comment:Antibodies to HCV no t detected. Does NOT exclude the possibility of recent exposure to HCV. HepBsAg Nonreactive Non[facility] Blood 02/28/2022 2:52 PM CDT 02/28/2022 6:46 PM CDT us Morenita Juarez NP LAB MICROBIOLOGY - GENERAL O RDERABLES Edited Result - Final [facility] One [facility] [place] [address] from Last 3 Months or Most Recently Relevant to Health Maintenance Insurance [facility] LOCAL PLUS IN [facility] Advance Directives For more information, please contact: [phone] * Full Code (Latest Code Status on File) Date Activated Date Inactivated Comments 07/07/2023 2:21 AM 07/13/2023 6:01 PM Care Teams Fac Engineer Relationship Specialty Start Date End Date Mounika Holland DO PCP - General Family Medicine 07/10/23
== END 2025-01-17 10:36 | disposition home or self-care (01) ==
PROVIDERS: PCP Family Medicine; Visit Provider Family Medicine
DX: M47.896 Other spondylosis, lumbar region (principal); S22.080A Wedge compression fracture of T11-T12 vertebra, initial encounter for closed fracture; S32.010A Wedge compression fracture of first lumbar vertebra, initial encounter for closed fracture; S32.020A Wedge compression fracture of second lumbar vertebra, initial encounter for closed fracture; S32.040A Wedge compression fracture of fourth lumbar vertebra, initial encounter for closed fracture; X58.XXXA Exposure to other specified factors, initial encounter
CPT/HCPCS: 72148

== ENCOUNTER 2025-02-15 09:42 | Outpatient (CLI) | payer OTHER, SELFPAY ==
--- OUTSIDE RECORDS SUMMARY | 2025-02-15 10:15 | XMS_ITS | CONTINUITY OF CARE DOCUMENT ---
Author Name bangmartinaishwarya Address Unknown Organization [facility] Address [address] [place] [address] Phone [phone] Care Team Providers Care Meat Curer Name Role Phone Jonas CHAMBERLAIN, Riley Unavailable [phone] Mounika Holland DO Unavailable Mounika Holland DO Unavailable [phone] INSURANCE PROVIDERS Payer name Policy type / Coverage type [place] red alliance party ID [place] MEDICAID Medicaid [id number]
--- OUTSIDE RECORDS SUMMARY | 2025-02-15 10:15 | XMS_ITS | Encounter Summary ---
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
--- OUTSIDE RECORDS SUMMARY | 2025-02-15 10:15 | XMS_ITS | Referral Summary ---
Author Organization [facility] Address [address] [place] [address] Care Team Providers Care Barrel Washer Name Role Phone Mounika Holland Primary Care Provider + Encounters Date Type Department Care Team Description 11/25/2024 11:30 AM RELATIONS SPECIALIST Office Visit [facility] Cardiology [address] 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 file Not on file Not on file Last Filed Vital Signs Vital Sign Reading Time Taken Comments Blood Pressure 127/83 11/25/2024 11:27 AM RELATIONS SPECIALIST Pulse 76 11/25/2024 11:27 AM RELATIONS SPECIALIST Temperature 36.6 C (97.8 F) 07/10/2024 3:48 PM CDT Respiratory Rate 18 07/13/2023 11:38 AM CDT Oxygen Saturation 100% 11/25/2024 11:27 AM RELATIONS SPECIALIST Inhaled Oxygen Concentration - - Weight 102.1 kg (225 lb) 11/25/2024 11:27 AM RELATIONS SPECIALIST Height 161.3 cm (5' 3.5 ) 11/25/2024 11:27 AM CS T Body Mass Index 39.23 11/25/2024 11:27 AM RELATIONS SPECIALIST Plan of Treatment Scheduled Procedures Name Priority [...] on 19. Hep C Ab Nonreactive Nonreactive [facility] Comment:Antibodies to HCV no t detected. Does NOT exclude the possibility of recent exposure to HCV. HepBsAg Nonreactive Nonreactive [facility] Blood 02/28/2022 2:52 PM CDT 02/28/2022 6:46 PM CDT us Morenita Juarez NP LAB MICROBIOLOGY - GENERAL O RDERABLES Edited Result - Final [facility] Department [place] [address] from Last 3 Months or Most Recently Relevant to Health Maintenance Insurance [facility] [employer] PLANS Address: [facility] [id number] [place] [address] LOCAL PLUS IN [facility] Advance Directives For more information, please contact: [phone] * Full Code (Latest Code Status on File) Date Activated Date Inactivated Comments 07/07/2023 2:21 AM 07/13/2023 6:01 PM Care Teams Barrel Washer Relationship Specialty Start Date End Date Monuika Holland DO PCP - General Family Medicine 07/10/23
--- OUTSIDE RECORDS SUMMARY | 2025-02-15 10:15 | XMS_ITS | Clinical Summary ---
Author Organization [facility] Address [address] [place] [address] Care Team Providers Care Labor Relations Supervisor Name Role Phone Mounika Holland Primary Care [...] w/ labs as detailed below Referral to [facility] genetics to discuss further recommendations [...] Department Care Team Description 11/25/2024 11:30 AM COUNT TEAM CLERK Office Visit [facility] Cardiology [address] [facility] 8[address] [place] [address] [place] [address] Rater, EM Russell Hypertension, essential (Primary Dx); [...] on file Legal Sex Female 8:50 PM COUNT TEAM CLERK Gender Identity Not on file Sexual Orientation Not on file 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 Not on file Not on file Obstetrics History Last Filed Vital Signs Vital Sign Reading Time Taken Comments Blood Pressure 127/83 11/25/2024 11:27 AM COUNT TEAM CLERK Pulse 76 11/25/2024 11:27 AM COUNT TEAM CLERK Temperature 36.6 C (97.8 F) 07/10/2024 3:48 PM CDT Respiratory Rate 18 07/13/2023 11:38 AM CDT Oxygen Saturation 100% 11/25/2024 11:27 AM COUNT TEAM CLERK Inhaled Oxygen Concentration - - Weight 102.1 kg (225 lb) 11/25/2024 11:27 AM COUNT TEAM CLERK Height 161.3 cm (5' 3.5 ) 11/25/2024 11:27 AM CS T Body Mass Index 39.23 11/25/2024 11:27 AM COUNT TEAM CLERK Plan of Treatment Scheduled Procedures Name Priority [...] PM CDT) Hep A IgM Nonreactive Nonreactive [facility] Comment: Interpretive Data: If Hep A IgM Ab is reported as Equivocal, a new sample should be drawn in two weeks for testing. Current interpretive data was last revised on 19. Hep B core IgM Nonreactive Nonreactive [facility] Comment: Interpretive Data If HepB Core IgM Ab is reported as Equivocal, a new sample should be drawn in two weeks for testing. Current interpretive data was last revised on 19. Hep C Ab Nonreactive Nonreactive [facility] Comment:Antibodies to HCV no t detected. Does NOT exclude the possibility of recent exposure to HCV. HepBsAg Nonreactive Nonreactive [facility] Blood 02/28/2022 2:52 PM CDT 02/28/2022 6:46 PM CDT Morenita Juarez NP LAB MICROBIOLOGY - GENERAL O RDERABLES Edited Result - Final [facility] Department [place] [address] from Last 3 Months or Most Recently Relevant to Health Maintenance Insurance [employer] [facility] [facility] [employer]PL[employer] HE[employer] PLANS Address: [facility] [id number] [place] [address] [facility] Advance Directives For more information, please contact: [phone] * Full Code (Latest Code Status on File) Date Activated Date Inactivated Comments 07/07/2023 2:21 AM 07/13/2023 6:01 PM Care Teams Labor Relations Supervisor Relationship Specialty Start Date End Date Mounika Holland DO PCP - General Family Medicine 07/10/23
[2025-02-15 10:45] LABS: Alanine Aminotransferase 38 U/L (6-35); Albumin Level 4.6 g/dL (3.5-5.1); Alkaline Phosphatase 108 U/L (38-126); Anion Gap 8 mmol/L (4-12); Aspartate Amino Transferase 69 U/L (14-36); Bilirubin,Total 1.3 mg/dL (0.2-1.3); Blood Urea Nitrogen 16 mg/dL (7-17); Calcium 9.2 mg/dL (8.4-10.2); Carbon Dioxide 32 mmol/L (22-30); Chloride 97 mmol/L (98-107); Cholesterol 245 mg/dL (0-200); Estimated Glomerular Filt Rate > 60; Glucose 104 mg/dL (65-110); Magnesium 1.5 mg/dL (1.6-2.3); Sodium 137 mmol/L (137-145); Triglycerides 91 mg/dL (<150)
[2025-02-15 10:59] LABS: LDL Cholesterol Direct 30 mg/dL
[2025-02-15 11:00] LABS: HDL Direct 210 mg/dL
== END 2025-02-15 09:43 | disposition home or self-care (01) ==
LOC: ANHLAB 09:44
PROVIDERS: PCP Family Medicine; Visit Provider Internal Medicine Cardiovascular Disease
DX: I50.30 Unspecified diastolic (congestive) heart failure (principal)
CPT/HCPCS: 36415; 80053; 80061; 83735; 84443

== ENCOUNTER 2025-07-01 11:53 | Outpatient (CLI) | payer OTHER, SELFPAY ==
--- OUTSIDE RECORDS SUMMARY | 2025-07-01 12:04 | XMS_ITS | Clinical Summary ---
Author Organization [facility] Address [address] [place] [address] Care Team Providers Care Mortgage Counselor Name Role Phone Mounika Holland Primary Care [...] daily 30 tablet 11 10/09/19 24 Active carvediloL (COREG) 6.25 mg tablet Take 1 tablet (6.25 mg total) by mouth 2 (two) times a day with meals 60 tablet 11 04/01/20 24 Active telmisartan (MICARDIS) 80 mg tablet Take 0.5 tablets (40 mg total) by mouth daily 04/07/20 24 Active rosuvastatin (CRESTOR) 20 mg tablet Take 1 tablet (20 mg total) by mouth daily 30 tablet 11 06/04/20 24 Active dexAMETHasone (DECADRON) 1 mg tabletIndications: Hypercortisolemia Take 1 tablet at 11PM before an 8AM lab 1 tablet 07/10/20 24 Active Jardiance 10 mg tablet TAKE 1 TABLET(10 MG) BY MOUTH DAILY 90 tablet 3 03/31/20 25 Active Active Problems Problem Noted Date Diagnosed [...] given prior success w/ steroid injection Trial Voltarealpa, exercises provided Assessment & Plan (01/09/2022 4:16 [...] w/ labs as detailed below Referral to [facility] genetics to discuss further recommendations for [...] 1 month Body mass index 40.0-44.9, adult ([facility]) 01/09 Assessment & Plan (02/28/2022 [...] obesity due to excess calories 01/09/2022 01/09/2022 Surgical History Surgery Date Site/Laterality Comments TOTAL [...] on file Legal Sex Female 8:50 PM MATHEMATICS TECHNICIAN Gender Identity Not on file Sexual Orientation Not on file 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 Not on file Not on file Obstetrics History Last Filed Vital Signs Vital Sign Reading Time Taken Comments Blood Pressure 127/83 11/25/2024 11:27 AM MATHEMATICS TECHNICIAN Pulse 76 11/25/2024 11:27 AM MATHEMATICS TECHNICIAN Temperature 36.6 C (97.8 F) 07/10/2024 3:48 PM CDT Respiratory Rate 18 07/13/2023 11:38 AM CDT Oxygen Saturation 100% 11/25/2024 11:27 AM MATHEMATICS TECHNICIAN Inhaled Oxygen Concentration - - Weight 102.1 kg (225 lb) 11/25/2024 11:27 AM MATHEMATICS TECHNICIAN Height 161.3 cm (5' 3.5) 11/25/2024 11:27 AM CS T Body Mass Index 39.23 11/25/2024 11:27 AM MATHEMATICS TECHNICIAN Plan of Treatment Scheduled Procedures Name Priority [...] Well Visit/Exam 18-64 02/28/2023 02/28/2022 Covid-19 Vaccine (4 - 2024-2 6 season) 2025 06/29/2023, 09/02/2022, 07/13/2021 Influenza Vaccine (#1) 2025 , 07/19/2022 Hepatitis C Screening Completed 02/28/2022 Pneumococcal [...] PM CDT) Hep A IgM Nonreactive Nonreactive [facility] Comment: Interpretive Data: If Hep A IgM Ab is reported as Equivocal, a new sample should be drawn in two weeks for testing. Current interpretive data was last revised on 19. Hep B core IgM Nonreactive Nonreactive [facility] Comment: Interpretive Data If HepB Core IgM Ab is reported as Equivocal, a new sample should be drawn in two weeks for testing. Current interpretive data was last revised on 19. Hep C Ab Nonreactive Nonreactive [facility] Comment:Antibodies to HCV no t detected. Does NOT exclude the possibility of recent exposure to HCV. HepBsAg Nonreactive Nonreactive [facility] Blood 02/28/2022 2:52 PM CDT 02/28/2022 6:46 PM CDT Morenita Juarez NP LAB MICROBIOLOGY - GENERAL O RDERABLES Edited Result - Final [facility] Department [place] [address] from Last 3 Months or Most Recently Relevant to Health Maintenance Insurance [employer] PL[employer] Address: [facility] [id number] [place] [address] [facility] Advance Directives For more information, please contact: [phone] * Full Code (Latest Code Status on File) Date Activated Date Inactivated Comments 07/07/2023 2:21 AM 07/13/2023 6:01 PM Care Teams Mortgage Counselor Relationship Specialty Start Date End Date Mounika Holland DO PCP - General Family Medicine 07/10/23
--- OUTSIDE RECORDS SUMMARY | 2025-07-01 12:04 | XMS_ITS | Encounter Summary ---
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
[2025-07-01 12:21] LABS: Hematocrit 29.7 % (37.0-47.0); Hemoglobin 9.5 g/dL (12.0-15.0); Immature Granulocyte Percent A 0.3 % (0-0.5); Lymphocytes Absolute Auto 0.87 K/mm3 (0.9-3.2); Mean Corpuscular HGB Conc 32.0 g/dl (32-36); Mean Corpuscular Hemoglobin 34.7 pg (26-34); Mean Corpuscular Volume 108.4 fl (80-100); Nucleated Red Blood Cells Absolute Auto 0.000 K/mm3 (0.0-0.012); Nucleated Red Blood Cells Perc 0.0 % (0.0-0.2); Platelet Count Result 179 k/mm3 (150-375); Red Blood Count 2.74 M/mm3 (4.2-5.4); White Blood Count 6.4 K/mm3 (4.5-10.0)
[2025-07-01 12:39] LABS: Macrocytosis 1+ (NORMAL); Schistocytes None Seen
[2025-07-01 12:46] LABS: Alanine Aminotransferase 38 U/L (6-35); Albumin Level 4.6 g/dL (3.5-5.1); Alkaline Phosphatase 118 U/L (38-126); Amylase 68 U/L (30-110); Anion Gap 18 mmol/L (4-12); Aspartate Amino Transferase 81 U/L (14-36); Bilirubin,Total 1.7 mg/dL (0.2-1.3); Blood Urea Nitrogen 40 mg/dL (7-17); Calcium 9.2 mg/dL (8.4-10.2); Carbon Dioxide 16 mmol/L (22-30); Chloride 97 mmol/L (98-107); Estimated Glomerular Filt Rate 17; Glucose 85 mg/dL (65-110); Lipase 258 U/L (23-300); Potassium 3.3 mmol/L (3.4-5.0); Sodium 131 mmol/L (137-145); Total Protein 8.1 g/dL (6.3-8.2)
== END 2025-07-01 11:54 | disposition home or self-care (01) ==
LOC: ANHLAB 11:55
PROVIDERS: PCP Family Medicine; Visit Provider Family Medicine
DX: R10.9 Unspecified abdominal pain (principal); R11.10 Vomiting, unspecified
CPT/HCPCS: 36415; 80053; 82150; 83690; 85025

== ENCOUNTER 2025-07-07 14:55 | Emergency (ER) | payer OTHER, SELFPAY ==
--- NOTE | ~2025-07-07 | CT_ITS ---
CT abdomen pelvis w con Clinical History: ab pain . Comparison: None Technique: Axial images lung bases to symphysis pubis IV contrast information not listed in PACS Coronal, sagittal reformats CT images acquired with automatic exposure control for dose reduction DLP: 1150 mGy-cm Findings: Lung bases: Clear. Visualized heart and pericardium: Unremarkable. Liver: Steatosis. Enlarged. Probable cirrhosis. Gallbladder: Unremarkable. Spleen: Unremarkable. Pancreas: Unremarkable. Adrenal glands: Unremarkable. Kidneys: Right kidney- No hydronephrosis. No renal stones. Left kidney- No hydronephrosis. No renal stones. Distal esophagus/stomach: Apparent gastric antral wall thickening likely merely underdistention. Small bowel loops: Normal caliber and wall thickness. Colon: Diverticula. Normal caliber and wall thickness. Normal RLQ appendix. Nodes: No enlarged nodes. Peritoneum: No ascites. No free air. Urinary bladder: Unremarkable. Uterus: Removed. Adnexa: No masses. Bones: Anterior wedge compression fractures T11, T12, L1, L2. Height loss L4, L5. All age indeterminate. Avascular necrosis bilateral femoral heads, left side worse; no collapse. Soft tissues: Small umbilical hernia with fat. Aorta: No aneurysm or dissection. IVC: Unremarkable. Main portal vein/SMV/splenic vein: Patent. IMPRESSION: 1. No acute inflammatory process. 2. Additional findings as above. Reviewed, dictated and finalized at location R.
[2025-07-07 14:58] VITALS: BP 155/98; PULSE 92; RESP 20; TEMP 36.8; O2SAT 97
[2025-07-07 16:12] LABS: Hematocrit 26.2 % (37.0-47.0); Hemoglobin 8.6 g/dL (12.0-15.0); Immature Granulocyte Percent A 0.6 % (0-0.5); Lymphocytes Absolute Auto 0.83 K/mm3 (0.9-3.2); Mean Corpuscular HGB Conc 32.8 g/dl (32-36); Mean Corpuscular Hemoglobin 34.8 pg (26-34); Mean Corpuscular Volume 106.1 fl (80-100); Nucleated Red Blood Cells Absolute Auto 0.000 K/mm3 (0.0-0.012); Nucleated Red Blood Cells Perc 0.0 % (0.0-0.2); Platelet Count Result 159 k/mm3 (150-375); Red Blood Count 2.47 M/mm3 (4.2-5.4); White Blood Count 5.3 K/mm3 (4.5-10.0)
[2025-07-07 16:21] LABS: Iron 127 ug/dL (37-170)
[2025-07-07 16:22] LABS: Alanine Aminotransferase 82 U/L (6-35); Albumin Level 4.2 g/dL (3.5-5.1); Alkaline Phosphatase 100 U/L (38-126); Anion Gap 12 mmol/L (4-12); Aspartate Amino Transferase 149 U/L (14-36); Bilirubin,Total 0.8 mg/dL (0.2-1.3); Blood Urea Nitrogen 28 mg/dL (7-17); Calcium 8.6 mg/dL (8.4-10.2); Carbon Dioxide 19 mmol/L (22-30); Chloride 103 mmol/L (98-107); Estimated CRCL calculation 42 ml/min; Estimated Glomerular Filt Rate 38; Glucose 76 mg/dL (65-110); Potassium 3.0 mmol/L (3.4-5.0); Sodium 134 mmol/L (137-145); Total Protein 7.4 g/dL (6.3-8.2)
[2025-07-07 16:28] LABS: INR 1.0; Prothrombin Time 13.0 Seconds (11.1-14.7)
[2025-07-07 16:29] LABS: Partial Thromboplastin Time 25.7 Seconds (22.3-36.8)
[2025-07-07 16:30] LABS: Percent Iron Saturation 76 % (20-50)
[2025-07-07 16:34] LABS: Hypochromasia 1+
[2025-07-07 16:35] LABS: Schistocytes None Seen; Tear Drop Cells Occasional
--- NOTE | 2025-07-07 17:15 | ED.GENADULT ---
HPI - General Adult General Chief complaint: Recheck/Abnormal Lab/Rx Stated complaint: abn labs Time Seen by Provider: 07/07/25 15:40 History of Present Illness HPI narrative: 5-year-old female with history of alcoholism presents emergency department for evaluation for increased generalized fatigue. Patient did have had outpatient labs recently that showed a hemoglobin of 9.5 and a creatinine of 2.86. Patient's hemoglobin has worsened the patient's creatinine has improved. Patient reports since getting his labs checked she has been able to eat more food and is tolerating p.o. better. Patient does drink water. Patient states she does drink alcohol daily, approximately 1 pt of vodka a day. Related Data Home Medications ?Medication ?Instructions ?Recorded ?Confirmed ?Last Taken ?Type omeprazole 20 mg capsule,delayed 20 mg PO DAILY 07/18/23 07/01/25 06/16/24 07:00 History release carvedilol 6.25 mg tablet 6.25 mg PO BID 04/15/24 07/01/25 06/16/24 07:00 History telmisartan 80 mg tablet 40 mg PO DAILY 04/15/24 07/01/25 06/16/24 07:00 History rosuvastatin 10 mg tablet 10 mg PO DAILY 12/31/24 07/01/25 Unknown History Allergies Allergy/AdvReac Type Severity Reaction Status Date / Time lisinopril Allergy Mild Cough Verified 07/07/25 14:57 Review of Systems Review of Systems: All systems reviewed & are unremarkable except as noted in HPI and below PMFSH Past Medical History Medical 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) 07/07/2023 Vitamin D deficiency Abnormal x-ray of spine Congestive heart failure Chronic knee pain Chronic back pain delivery delivered Arthritis Surgical History Surgical History H/O: hysterectomy Family History Family History Father Cancer Mother Cancer Thyroid disorder Sibling Cancer Grandparent Cancer Social History Social History Smoking packs per day: 1 Smoking cigarettes per day: 20.0 Years smoked: 45 Smoking pack-years: 45.00 Smoking status: Former smoker Tobacco type: cigarettes Alcohol intake: current Alcohol use details: 1 pint a week Substance use: never Substance use type: does not use Do You Feel Safe in your Home?: Yes Lack of Transportation: No Lack of Food: Never True Current Housing: I Have Housing Concerned About Future Housing: No Difficulty Paying Gas/Electric Bills: No Difficulty Paying for Meds: No Currently Unemployed: No Education: Decline to Answer Difficulty w/ Childcare or Family Care: No Living arrangements: alone Spiritual care concerns: No Agree to blood products: Yes Exam Narrative: APPEARANCE: Well appearing, no pain, no distress, well-nourished. HEAD: normocephalic, atraumatic. EYES: PERRLA/EOMI, conjunctivae clear. NOSE: Normal no drainage EARS:TMS clear with good light reflex. THROAT: Pharynx clear, no exudate. NECK: Supple. No adenopathy, no masses. RESPIRATORY: Airway patent, respirations nonlabored. Clear to auscultation bilaterally, no rales, rhonchi, wheezing. CARDIOVASCULAR: Regular rate and rhythm without murmurs rubs or gallops. ABDOMINAL: Soft, nontender, nondistended, normal bowel sounds MUSCULOSKELETAL: Moves all extremities. Strength/ROM intact, No edema, No calf tenderness. NEURO: Alert. Cranial nerves II through XII intact. Good gait. Good coordination SKIN: Warm, dry. Normal Color Rectal exam: Hemoccult negative on the digital rectal exam Course Vital Signs Vital signs: Vital Signs Temperature 98.2 F 07/07/25 14:58 Pulse Rate 92 07/07/25 14:58 Respiratory Rate 20 07/07/25 14:58 Blood Pressure 155/98 H 07/07/25 14:58 Pulse Oximetry 97 07/07/25 14:58 Temperature 98.2 F 07/07/25 14:58 Pulse Rate 88 07/07/25 19:15 Respiratory Rate 14 07/07/25 19:15 Blood Pressure 110/72 07/07/25 19:15 Pulse Oximetry 100 07/07/25 19:15 Medical Decision Making MDM Narrative Medical decision making narrative: 59-year-old female presents emergency department for evaluation of her kidney function and anemia. Patient's kidney function is improved compared started last labs on 07/01 but patient's hemoglobin has worsened. This may be secondary to dilution. Patient was Hemoccult negative on the digital rectal exam. CT scan showed no acute abnormalities. Patient was encouraged to have close follow-up with primary care physician for additional workup for the anemia. Patient was encouraged to refrain from drinking alcohol. All questions concerns were addressed patient was well-appearing. Differential Diagnosis Differential Diagnosis: Acute on chronic kidney injury, dehydration, anemia, rectal bleeding, upper GI bleeding Vital Signs Vital Signs: Vital Signs Temperature 98.2 F 07/07/25 14:58 Pulse Rate 92 07/07/25 14:58 Respiratory Rate 20 07/07/25 14:58 Blood Pressure 155/98 H 07/07/25 14:58 Pulse Oximetry 97 07/07/25 14:58 Temperature 98.2 F 07/07/25 14:58 Pulse Rate 88 07/07/25 19:15 Respiratory Rate 14 07/07/25 19:15 Blood Pressure 110/72 07/07/25 19:15 Pulse Oximetry 100 07/07/25 19:15 Lab Data Lab results reviewed: Yes I reviewed the patient's lab results. 07/07/25 16:03 07/07/25 16:03 Labs: Lab Results 07/07/25 Range/Units 16:03 WBC 5.3 (4.5-10.0) K/mm3 RBC 2.47 L (4.2-5.4) M/mm3 Hgb 8.6 L (12.0-15.0) g/dL Hct 26.2 L (37.0-47.0) % MCV 106.1 H (80-100) fl MCH 34.8 H (26-34) pg MCHC 32.8 (32-36) g/dl RDW 13.2 (11.5-14.5) % Plt Count 159 (150-375) k/mm3 MPV 9.8 (7.4-10.4) fl Immature Gran % (Auto) 0.6 H (0-0.5) % Neut % (Auto) 68.9 (45.5-73.1) % Lymph % (Auto) 15.7 L (18.3-44.2) % [place] % (Auto) 12.5 H (2.6-8.5) % Eos % (Auto) 1.7 (0-4.4) % Baso % (Auto) 0.6 (0.2-1.2) % Lymph # (Auto) 0.83 L (0.9-3.2) K/mm3 [place] # (Auto) 0.7 H (0.1-0.6) K/mm3 Eos # (Auto) 0.1 (0-0.3) K/mm3 Baso # (Auto) 0.0 (0.0-0.1) K/mm3 Abs Immat Gran (auto) 0.03 (0.00-0.031) K/mm3 Absolute Neuts (auto) 3.6 (1.3-6.7) K/mm3 Absolute Nucleated RBC 0.000 (0.0-0.012) K/mm3 Band Neutrophils % Not Reportable Nucleated RBC % 0.0 (0.0-0.2) % Platelet Estimate Adequate (Adequate) Hypochromasia 1+ Tear Drop Cells Occasional Schistocytes None seen PT 13.0 (11.1-14.7) Seconds INR 1.0 APTT 25.7 (22.3-36.8) Seconds Sodium 134 L (137-145) mmol/L Potassium 3.0 L (3.4-5.0) mmol/L Chloride 103 (98-107) mmol/L Carbon Dioxide 19 L (22-30) mmol/L Anion Gap 12 (4-12) mmol/L BUN 28 H D (7-17) mg/dL Creatinine 1.42 H (0.7-1.0) mg/dL Estim Creat Clear Calc 42 ml/min Estimated GFR 38 L (59 - ) Glucose 76 (65-110) mg/dL Calcium 8.6 (8.4-10.2) mg/dL Iron 127 (37-170) ug/dL TIBC 168 L (261-462) ug/dL % Saturation 76 H (20-50) % Total Bilirubin 0.8 (0.2-1.3) mg/dL AST 149 H (14-36) U/L ALT 82 H (6-35) U/L Alkaline Phosphatase 100 (38-126) U/L Total Protein 7.4 (6.3-8.2) g/dL Albumin 4.2 (3.5-5.1) g/dL Blood Type A Positive Antibody Screen Negative Discharge Plan Discharge Clinical Impression: Anemia, Alcoholism, ROSALINO (acute kidney injury) Patient Disposition: Home Condition: Stable Instructions: Antibiotic Form, Acute Kidney Injury (DC), Anemia (ED), Alcohol Dependence (ED) Additional Instructions: Have close follow-up with your primary care physician for your anemia and your acute kidney injury. Continue to seek rehab options for your alcoholism. If you have any worsening symptoms and please call or return to the emergency department. Patient Language: Maldivian Prescriptions: New metoclopramide HCl [Reglan] 10 mg tablet 10 mg PO Q6H PRN (Reason: nausea and vomiting) Qty: 14 0RF No Action (DME) CPAP Equipment See Rx Instructions .Route .MEDSUPPLY Qty: 1 0RF Rx Instructions: Rx: Size medium Resmed AirFit F20 full face mask DME: [facility] carvedilol 6.25 mg tablet 6.25 mg PO BID telmisartan 80 mg tablet 40 mg PO DAILY Rx Instructions: take 1/2 daily rosuvastatin 10 mg tablet 10 mg PO DAILY triamcinolone acetonide 0.1 % cream 1 applic topical BID Qty: 453.6 0RF Rx Instructions: Apply a thin layer to affected area. ondansetron 4 mg tablet,disintegrating 4 mg PO Q8H PRN (Reason: nausea and vomiting) Qty: 30 0RF omeprazole 20 mg Capsule,Delayed Release(Dr/Ec) 20 mg PO DAILY Jardiance 10 mg tablet See Rx Instructions .ROUTE .COMPLEX Qty: 30 5RF Dose Instruction: TAKE 1 TABLET BY MOUTH DAILY Rx Instructions: TAKE 1 TABLET BY MOUTH DAILY fluoxetine 60 mg tablet 60 mg PO DAILY Qty: 90 1RF hydrochlorothiazide 12.5 mg tablet 25 mg PO DAILY Qty: 180 1RF Follow-up/Referrals: Mounika Holland DO [Primary Care Provider, Family Practice]
[2025-07-07] MEDS: METOCLOPRAMIDE HCL INJ 10 MG/2 ML VIAL IV PUSH (17:55)
[2025-07-07] MEDS: LACTATED RINGERS 1,000 ML 999 ML IV CONT (17:56)
[2025-07-07] MEDS: ACETAMINOPHEN 325 MG TABLET 650 MG PO (17:56)
[2025-07-07 19:00] VITALS: BP 110/72; O2SAT 96
[2025-07-07 19:01] VITALS: BP 110/72; PULSE 80; RESP 18; O2SAT 96; O2SAT 97
[2025-07-07 19:15] VITALS: BP 110/72; PULSE 88; RESP 14; O2SAT 100
== END 2025-07-07 19:28 | disposition home or self-care (01) ==
PROVIDERS: Emergency Provider Emergency Medicine; PCP Family Medicine
DX: N17.9 Acute kidney failure, unspecified (principal); D64.9 Anemia, unspecified; F10.20 Alcohol dependence, uncomplicated; Y90.9 Presence of alcohol in blood, level not specified; I50.9 Heart failure, unspecified; E24.9 Cushing's syndrome, unspecified; E55.9 Vitamin D deficiency, unspecified; M19.90 Unspecified osteoarthritis, unspecified site; Z87.891 Personal history of nicotine dependence; Z90.710 Acquired absence of both cervix and uterus; Z79.899 Other long term (current) drug therapy; Z79.84 Long term (current) use of oral hypoglycemic drugs
CPT/HCPCS: 36415; 74177; 80053; 83540; 83550; 85025; 85610; 85730; 86850; 86900; 86901; 96361; 96374; 99284; A9270; J2765; J7120; Q9967

== ENCOUNTER 2025-07-15 16:07 | Outpatient (CLI) | payer OTHER, SELFPAY ==
[2025-07-15 16:39] LABS: Hematocrit 26.8 % (37.0-47.0); Hemoglobin 8.5 g/dL (12.0-15.0); Immature Granulocyte Percent A 0.7 % (0-0.5); Lymphocytes Absolute Auto 1.17 K/mm3 (0.9-3.2); Mean Corpuscular HGB Conc 31.7 g/dl (32-36); Mean Corpuscular Hemoglobin 34.6 pg (26-34); Mean Corpuscular Volume 108.9 fl (80-100); Nucleated Red Blood Cells Absolute Auto 0.000 K/mm3 (0.0-0.012); Nucleated Red Blood Cells Perc 0.0 % (0.0-0.2); Platelet Count Result 230 k/mm3 (150-375); Red Blood Count 2.46 M/mm3 (4.2-5.4); White Blood Count 5.4 K/mm3 (4.5-10.0)
[2025-07-15 16:44] LABS: Add Urine Microscopic? YES; Appearance Urine Clear (Clear); Glucose Urine UA 1+ mg/dL (Negative); Leukocyte Esterase Ur Negative LEU/UL (Negative); Nitrate Urine Negative (Negative); Non Pathogenic Casts 0-2; Specific Grav Ur 1.014 (1.001-1.035)
[2025-07-15 16:49] LABS: Macrocytosis 1+ (NORMAL); Ovalocytes 1+; Schistocytes None Seen
--- OUTSIDE RECORDS SUMMARY | 2025-07-15 17:51 | XMS_ITS | Encounter Summary ---
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
--- OUTSIDE RECORDS SUMMARY | 2025-07-15 17:51 | XMS_ITS | Clinical Summary ---
Author Organization 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 on file Not on file Obstetrics History Last Filed Vital Signs Vital Sign Reading Time Taken Comments Blood Pressure 127/83 11/25/2024 11:27 AM TAKER DOWN Pulse 76 11/25/2024 11:27 AM TAKER DOWN Temperature 36.6 C (97.8 F) 07/10/2024 3:48 PM CDT Respiratory Rate 18 07/13/2023 11:38 AM CDT Oxygen Saturation 100% 11/25/2024 11:27 AM TAKER DOWN Inhaled Oxygen Concentration - - Weight 102.1 kg (225 lb) 11/25/2024 11:27 AM TAKER DOWN Height 161.3 cm (5' 3.5) 11/25/2024 11:27 AM CS T Body Mass Index 39.23 11/25/2024 11:27 AM TAKER DOWN Plan of Treatment Scheduled Procedures Name Priority [...] CDT) Hep A IgM Nonreactive Nonreactive [facility] Comment: Interpretive Data: If Hep A IgM Ab is reported as Equivocal, a new sample should be drawn in two weeks for testing. Current interpretive data was last revised on 19. Hep B core IgM Nonreactive Nonreactive [facility] Comment: Interpretive Data If HepB Core IgM Ab is reported as Equivocal, a new sample should be drawn in two weeks for testing. Current interpretive data was last revised on 19. Hep C Ab Nonreactive Nonreactive [facility] Comment:Antibodies to HCV no t detected. Does NOT exclude the possibility of recent exposure to HCV. HepBsAg Nonreactive Nonreactive [facility] Blood 02/28/2022 2:52 PM CDT 02/28/2022 6:46 PM CDT Morenita Juarez NP LAB MICROBIOLOGY - GENERAL O RDERABLES Edited Result - Final [facility] Department [place] [address] from Last 3 Months or Most Recently Relevant to Health Maintenance Insurance [employer] [facility] [facility] [employer] Address: [facility] [id number] [place] [address] [facility] Advance Directives For more information, please contact: [phone] * Full Code (Latest Code Status on File) Date Activated Date Inactivated Comments 07/07/2023 2:21 AM 07/13/2023 6:01 PM Care Teams Tongue Stitcher Relationship Specialty Start Date End Date Mounika Holland DO PCP - General Family Medicine 07/10/23
[2025-07-15 18:19] LABS: Alanine Aminotransferase 84 U/L (6-35); Albumin Level 4.3 g/dL (3.5-5.1); Alkaline Phosphatase 103 U/L (38-126); Anion Gap 11 mmol/L (4-12); Aspartate Amino Transferase 132 U/L (14-36); Bilirubin,Total 0.6 mg/dL (0.2-1.3); Blood Urea Nitrogen 26 mg/dL (7-17); Calcium 8.8 mg/dL (8.4-10.2); Carbon Dioxide 30 mmol/L (22-30); Chloride 96 mmol/L (98-107); Estimated Glomerular Filt Rate 49; Glucose 85 mg/dL (65-110); Potassium 2.7 mmol/L (3.4-5.0); Sodium 137 mmol/L (137-145); Total Protein 7.6 g/dL (6.3-8.2)
== END 2025-07-15 16:08 | disposition home or self-care (01) ==
LOC: ANHLAB 16:09
PROVIDERS: PCP Family Medicine; Visit Provider Family Medicine
DX: D64.9 Anemia, unspecified (principal); R79.89 Other specified abnormal findings of blood chemistry; R30.0 Dysuria
CPT/HCPCS: 36415; 80053; 81001; 85025

== ENCOUNTER 2025-07-15 19:46 | Observation (INO) | payer OTHER, SELFPAY ==
[2025-07-15] VITALS (15 sets, daily range): BP systolic 87–100; BP diastolic 54–66; PULSE 66–92; RESP 13–22; TEMP 37.1; O2SAT 92–100
--- NOTE | ~2025-07-15 | XR_ITS ---
EXAMINATION: XR chest 2V, 07/16/2025 15:35 CDT HISTORY: ?Pneumonia COMPARISON: No comparisons available. Technique: 2 views obtained. Findings: The lungs are clear, no effusion. No pneumothorax. Heart is normal size. Mediastinal and hilar contours are within normal limits. Bony thorax no acute abnormality. Impression: No acute cardiopulmonary abnormality. Reviewed, dictated and finalized at location P. Impression: No acute cardiopulmonary abnormality.
--- OUTSIDE RECORDS SUMMARY | 2025-07-15 22:36 | XMS_ITS | Encounter Summary ---
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
--- OUTSIDE RECORDS SUMMARY | 2025-07-15 22:36 | XMS_ITS | Clinical Summary ---
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 Gender Identity Not on file Sexual Orientation Not on file 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 file Not on file Not on file Obstetrics History Last Filed Vital Signs Vital Sign Reading Time Taken Comments Blood Pressure 127/83 11/25/2024 11:27 AM STUD DAIRY CATTLE FARMER Pulse 76 11/25/2024 11:27 AM STUD DAIRY CATTLE FARMER Temperature 36.6 C (97.8 F) 07/10/2024 3:48 PM CDT Respiratory Rate 18 07/13/2023 11:38 AM CDT Oxygen Saturation 100% 11/25/2024 11:27 AM STUD DAIRY CATTLE FARMER Inhaled Oxygen Concentration - - Weight 102.1 kg (225 lb) 11/25/2024 11:27 AM STUD DAIRY CATTLE FARMER Height 161.3 cm (5' 3.5) 11/25/2024 11:27 AM CS T Body Mass Index 39.23 11/25/2024 11:27 AM STUD DAIRY CATTLE FARMER Plan of Treatment Scheduled Procedures Name Priority [...] PM CDT) Hep A IgM Nonreactive Nonreactive [facility] Comment: Interpretive Data: If Hep A IgM [...] on 19. Hep C Ab Nonreactive Nonreactive [facility] Comment:Antibodies to HCV no t detected. Does NOT exclude the possibility of recent exposure to HCV. HepBsAg Nonreactive Nonreactive [facility] Blood 02/28/2022 2:52 PM CDT 02/28/2022 6:46 PM CDT Morenita Juarez NP LAB MICROBIOLOGY - GENERAL O RDERABLES Edited Result - Final [facility] One [facility] Department [place] [address] from Last 3 Months or Most Recently Relevant to Health Maintenance Insurance [employer] Address: [facility] [id number] [place] [address] [facility] Advance Directives For more information, please contact: [phone] * Full Code (Latest Code Status on File) Date Activated Date Inactivated Comments 07/07/2023 2:21 AM 07/13/2023 6:01 PM Care Teams Java Support Engineer Relationship Specialty Start Date End Date Mounika Holland DO PCP - General Family Medicine 07/10/23
[2025-07-15] MEDS: POTASSIUM CHLORIDE INJ 40 MEQ in SODIUM CHLORIDE 0.9% IV 500 ML 130 MEQ IVPB (23:05)
[2025-07-15] MEDS: FOLIC ACID 1 MG/0.2 ML INJ IV PUSH (23:05)
--- NOTE | 2025-07-15 23:05 | ECG_ITS ---
Test Date: 2025-07-15 23:15:55 Measurements Intervals M[place]arley Rate: 68 P: 26 ME: 167 QRS: 23 QRSD: 102 T: 11 QT: 407 QTc: 433 Interpretive Statements SINUS RHYTHM INCOMPLETE RIGHT BUNDLE BRANCH BLOCK NONSPECIFIC ST & T-WAVE ABNORMALITY- DIFFUSE LEADS BASELINE ARTIFACT- I, II, III, AVR, AVL, AVF, V4-V6 BORDERLINE ECG No previous ECG available for comparison Electronically Signed On 07-16-2025 06:28:40 CDT by Miguel Angel Yates D.O.
[2025-07-15] MEDS: THERAPEUTIC MULTIVITAMINS/MINERALS TAB (*BKC) 1 TABLET PO (23:06)
--- NOTE | 2025-07-15 23:06 | ED.RECABL ---
HPI - Recheck/Abnormal Lab/Rx General Chief Complaint: Recheck/Abnormal Lab/Rx Stated Complaint: Hypocalcemia Time Seen by Provider: 07/15/25 22:31 History of Present Illness HPI narrative: 59-year-old female with history of hypertension, diastolic dysfunction, chronic alcohol use. She presents to the emergency department today with generalized weakness. She had outpatient laboratory studies done that showed severe anomalies with hypokalemia and kidney disease. Was referred to the ER for evaluation. She was seen several times this last month for renal failure and electrolyte abnormalities. Was feeling better after rehydration in the ER on the and discharged home after unremarkable workup otherwise. On her follow-up visit she states she still feeling generalized weakness but denies any other complaints. No pain besides her chronic back pain. No changes to her medications. She takes hydrochlorothiazide but no other water pills. Endorses at a daily alcohol drinking up to a 1 pt per day. States she is cutting back and now drink half a pt this morning. No history of withdrawals to her knowledge. Denies any trauma, fever, chills, headache, vision changes, chest pain, shortness a breath, abdominal pain. No bleeding but has a history of anemia. Seems to be macrocytosis. Endorses poor oral intake of food besides drinking. 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) 07/07/2023 Vitamin D deficiency Abnormal x-ray of spine Congestive heart failure Chronic knee pain Chronic back pain delivery delivered Arthritis Surgical History Surgical History H/O: hysterectomy Family History Family History Father Cancer Mother Cancer Thyroid disorder Sibling Cancer Grandparent Cancer Social History Social History Smoking packs per day: 1 Smoking cigarettes per day: 20.0 Years smoked: 45 Smoking pack-years: 45.00 Smoking status: Former smoker Tobacco type: cigarettes Alcohol intake: current Alcohol use details: 1 pint a week Substance use: never Substance use type: does not use Do You Feel Safe in your Home?: Yes Lack of Transportation: No Lack of Food: Never True Current Housing: I Have Housing Concerned About Future Housing: No Difficulty Paying Gas/Electric Bills: No Difficulty Paying for Meds: No Currently Unemployed: No Education: Decline to Answer Difficulty w/ Childcare or Family Care: No Living arrangements: alone Spiritual care concerns: No Agree to blood products: Yes Exam Narrative: GENERAL: [Well-appearing, well-nourished, and in no acute distress.] HEAD: [Normocephalic, atraumatic.] EYES: [PERRLA and EOMI.] ENT: Nares clear, no rhinorrhea or epistaxis. Mucous membranes moist. NECK: Supple. CHEST: [Clear to auscultation. No respiratory distress.] HEART: [Regular rate and rhythm]. No murmur heard. [Normal peripheral pulses.] ABDOMEN: [Soft, nondistended], [nontender], [No rigidity or guarding] EXTREMITIES: Normal range of motion. [No edema.] SKIN: Warm, dry, no rash. NEURO: [No focal deficits]. Alert and oriented [x3.] PSYCH: [Normal mood and affect.] Course Vital Signs Vital signs: Vital Signs Temperature 37.1 C 07/15/25 19:50 Pulse Rate 92 07/15/25 19:50 Respiratory Rate 18 07/15/25 19:50 Blood Pressure 100/59 L 07/15/25 19:50 Pulse Oximetry 96 07/15/25 19:50 Temperature 37.1 C 07/15/25 19:50 Pulse Rate 92 07/15/25 19:50 Respiratory Rate 18 07/15/25 19:50 Blood Pressure 100/59 L 07/15/25 19:50 Pulse Oximetry 96 07/15/25 19:50 MDM - Recheck/Abnormal Lab/Rx MDM Narrative Medical decision making narrative: 59-year-old female with history of hypertension, diastolic dysfunction, chronic alcohol use. She presents to the emergency department today with generalized weakness. She had outpatient laboratory studies done that showed severe anomalies with hypokalemia and kidney disease. Was referred to the ER for evaluation. She was seen several times this last month for renal failure and electrolyte abnormalities. Was feeling better after rehydration in the ER on the and discharged home after unremarkable workup otherwise. On her follow-up visit she states she still feeling generalized weakness but denies any other complaints. No pain besides her chronic back pain. No changes to her medications. She takes hydrochlorothiazide but no other water pills. Endorses at a daily alcohol drinking up to a 1 pt per day. States she is cutting back and now drink half a pt this morning. No history of withdrawals to her knowledge. Denies any trauma, fever, chills, headache, vision changes, chest pain, shortness a breath, abdominal pain. No bleeding but has a history of anemia. Seems to be macrocytosis. Endorses poor oral intake of food besides drinking. Patient is a soft blood pressure but not any acute distress. Awake alert oriented. No tachycardia, fever, hypoxemia. Her complain of generalized weakness likely stems from dehydration versus electrolyte anomalies versus alcohol abuse. Low suspicion acute infectious or inflammatory process. Laboratory studies reviewed and ordered in addition with magnesium level, potassium level, CBC. EKG obtained. She does have severe hypokalemia and likely hypo magnesemia. Given replenishment of both as well as D5 LR, thiamine, folic acid and multivitamin. Given fluids the and given the severe derangements with macrocytic anemia also noted vitamin levels were obtained to assess for replenishment. Will require admission to the hospital for continued care. Spoke to the hospitalist who accepted the patient to the IMU at this time. Medical Records Attestation: I reviewed the patient's medical records. Lab Data Attestation: I reviewed the patient's lab results. 07/15/25 23:06 07/15/25 23:06 Labs: Lab Results 07/15/25 07/15/25 07/15/25 Range/Units 23:06 23:06 23:07 WBC 5.8 (4.5-10.0) K/mm3 RBC 2.53 L (4.2-5.4) M/mm3 Hgb 8.6 L (12.0-15.0) g/dL Hct 27.4 L (37.0-47.0) % MCV 108.3 H (80-100) fl MCH 34.0 (26-34) pg MCHC 31.4 L (32-36) g/dl RDW 13.2 (11.5-14.5) % Plt Count 224 (150-375) k/mm3 MPV 9.3 (7.4-10.4) fl Immature Gran % (Auto) 0.7 H (0-0.5) % Neut % (Auto) 53.8 (45.5-73.1) % Lymph % (Auto) 33.4 (18.3-44.2) % Chaves % (Auto) 9.9 H (2.6-8.5) % Eos % (Auto) 1.7 (0-4.4) % Baso % (Auto) 0.5 (0.2-1.2) % Lymph # (Auto) 1.93 (0.9-3.2) K/mm3 Chaves # (Auto) 0.6 (0.1-0.6) K/mm3 Eos # (Auto) 0.1 (0-0.3) K/mm3 Baso # (Auto) 0.0 (0.0-0.1) K/mm3 Abs Immat Gran (auto) 0.04 H (0.00-0.031) K/mm3 Absolute Neuts (auto) 3.1 (1.3-6.7) K/mm3 Absolute Nucleated RBC 0.000 (0.0-0.012) K/mm3 Band Neutrophils % Not Reportable Nucleated RBC % 0.0 (0.0-0.2) % Platelet Estimate Adequate (Adequate) Hypochromasia 1+ Macrocytosis 1+ (NORMAL) Schistocytes None seen Sodium 138 (137-145) mmol/L Potassium 2.6 L* (3.4-5.0) mmol/L Chloride 98 (98-107) mmol/L Carbon Dioxide 28 (22-30) mmol/L Anion Gap 12 (4-12) mmol/L BUN 24 H (7-17) mg/dL Creatinine 1.27 H (0.7-1.0) mg/dL Estim Creat Clear Calc 49 ml/min Estimated GFR 43 L (59 - ) Glucose 91 (65-110) mg/dL Calcium 9.0 (8.4-10.2) mg/dL Magnesium Cancelled 1.6 Vitamin B12 573.0 (239-931) pg/mL Folate 5.7 (2.76->20) ng/mL Urine Color Yellow (Yellow) Urine Appearance Clear (Clear) Urine pH 6.0 (5.0-9.0) Ur Specific [place] 1.011 (1.001-1.035) Urine Protein Negative (Negative) mg/dL Urine Glucose (UA) Trace H (Negative) mg/dL Urine Ketones Negative (Negative) mg/dL Ur Blood (Man) Negative (Negative) Urine Nitrate Negative (Negative) Urine Bilirubin Negative (Negative) Urine Urobilinogen 0.2 (<2.0) mg/dL Leukocyte Esterase Rfl Negative (Negative) HANNAH/UL Critical Care Time Critical Care Time Critical Care Time: Yes Total Critical Care Time: 35 Discharge Plan Discharge Clinical Impression: Acute hypokalemia, Hypomagnesemia, Acute dehydration, Anemia, macrocytic, Alcohol abuse Patient Disposition: Still a Patient Condition: Stable
[2025-07-15 23:13] LABS: Hematocrit 27.4 % (37.0-47.0); Hemoglobin 8.6 g/dL (12.0-15.0); Immature Granulocyte Percent A 0.7 % (0-0.5); Lymphocytes Absolute Auto 1.93 K/mm3 (0.9-3.2); Mean Corpuscular HGB Conc 31.4 g/dl (32-36); Mean Corpuscular Hemoglobin 34.0 pg (26-34); Mean Corpuscular Volume 108.3 fl (80-100); Nucleated Red Blood Cells Absolute Auto 0.000 K/mm3 (0.0-0.012); Nucleated Red Blood Cells Perc 0.0 % (0.0-0.2); Platelet Count Result 224 k/mm3 (150-375); Red Blood Count 2.53 M/mm3 (4.2-5.4); White Blood Count 5.8 K/mm3 (4.5-10.0)
[2025-07-15 23:14] LABS: Add Urine Microscopic? NO; Appearance Urine Clear (Clear); Glucose Urine UA Trace mg/dL (Negative); Leukocyte Esterase Ur Negative LEU/UL (Negative); Nitrate Urine Negative (Negative); Specific Grav Ur 1.011 (1.001-1.035)
[2025-07-15] MEDS: MAGNESIUM SULF 2 GM/WATER 50ML 2 GM/50 ML BAG IVPB (23:18)
[2025-07-15] MEDS: THIAMINE HCL 200 MG/2 ML VIAL 100 MG IV PUSH (23:18)
[2025-07-15] MEDS: POTASSIUM CHLORIDE 20 MEQ ER TABLET 40 MEQ PO (23:19)
[2025-07-15] MEDS: oxyCODONE HCL (*CRX) 5 MG TAB IR PO (23:19)
[2025-07-15 23:23] LABS: Hypochromasia 1+
[2025-07-15 23:24] LABS: Macrocytosis 1+ (NORMAL); Schistocytes None Seen
[2025-07-15 23:35] LABS: Anion Gap 12 mmol/L (4-12); Blood Urea Nitrogen 24 mg/dL (7-17); Calcium 9.0 mg/dL (8.4-10.2); Carbon Dioxide 28 mmol/L (22-30); Chloride 98 mmol/L (98-107); Estimated CRCL calculation 49 ml/min; Estimated Glomerular Filt Rate 43; Glucose 91 mg/dL (65-110); Magnesium 1.6 mg/dL (1.6-2.3); Potassium 2.6 mmol/L (3.4-5.0); Sodium 138 mmol/L (137-145)
[2025-07-15] MEDS: DEXTROSE 5%/LACTATED RINGERS 1,000 ML 1000 ML IV CONT (23:37)
[2025-07-16] VITALS (21 sets, daily range): BP systolic 87–143; BP diastolic 45–93; PULSE 66–88; RESP 12–22; TEMP 36.4–36.9; O2SAT 92–100; BMI 37.6
[2025-07-16 00:45] LABS: Vitamin B12 573.0 pg/mL (239-931)
[2025-07-16] MEDS: LACTATED RINGERS 1,000 ML 125 ML IV CONT ×2 (00:48→12:07)
--- NOTE | 2025-07-16 04:39 | PC.NURSE ---
Pt placed on 2L NC while sleeping r/t sleep apnea
--- NOTE | 2025-07-16 07:26 | PC.NURSE ---
bedside patient report received from Amna JUAREZ. patient denied any concerns or questions. patient updated to plan of care.
--- NOTE | 2025-07-16 08:00 | PC.NURSE ---
patient was provided a breakfast tray at this time, patient ambulated to the bathroom, patient ambulated with a steady gait.
--- NOTE | 2025-07-16 08:20 | PC.NURSE ---
patient home medications list discussed and updated in chart.
[2025-07-16 08:28] LABS: Hematocrit 29.1 % (37.0-47.0); Hemoglobin 9.2 g/dL (12.0-15.0); Mean Corpuscular HGB Conc 31.6 g/dl (32-36); Mean Corpuscular Hemoglobin 34.6 pg (26-34); Mean Corpuscular Volume 109.4 fl (80-100); Platelet Count Result 208 k/mm3 (150-375); Red Blood Count 2.66 M/mm3 (4.2-5.4); White Blood Count 5.1 K/mm3 (4.5-10.0)
[2025-07-16 08:46] LABS: Magnesium 2.0 mg/dL (1.6-2.3)
[2025-07-16 08:48] LABS: Anion Gap 6 mmol/L (4-12); Blood Urea Nitrogen 21 mg/dL (7-17); Calcium 8.9 mg/dL (8.4-10.2); Carbon Dioxide 33 mmol/L (22-30); Chloride 100 mmol/L (98-107); Estimated CRCL calculation 62 ml/min; Estimated Glomerular Filt Rate 57; Glucose 98 mg/dL (65-110); Potassium 3.2 mmol/L (3.4-5.0); Sodium 139 mmol/L (137-145)
--- NOTE | 2025-07-16 09:10 | PC.NURSE ---
hospitalist at bedside seeing the patient at this time
[2025-07-16] MEDS: ONDANSETRON INJ 4 MG/2 ML VIAL IV PUSH (10:36)
--- OUTSIDE RECORDS SUMMARY | 2025-07-16 10:39 | XMS_ITS | Clinical Summary ---
Author Organization [facility] Address [address] [place] [address] Care Team Providers Care Neurology Stroke Physician Name Role Phone Mounika Holland Primary Care [...] w/ labs as detailed below Referral to 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 Not on file Not on file Obstetrics History Last Filed Vital Signs Vital Sign Reading Time Taken Comments Blood Pressure 127/83 11/25/2024 11:27 AM CUTTER TENDER Pulse 76 11/25/2024 11:27 AM CUTTER TENDER Temperature 36.6 C (97.8 F) 07/10/2024 3:48 PM CDT Respiratory Rate 18 07/13/2023 11:38 AM CDT Oxygen Saturation 100% 11/25/2024 11:27 AM CUTTER TENDER Inhaled Oxygen Concentration - - Weight 102.1 kg (225 lb) 11/25/2024 11:27 AM CUTTER TENDER Height 161.3 cm (5' 3.5) 11/25/2024 11:27 AM CS T Body Mass Index 39.23 11/25/2024 11:27 AM CUTTER TENDER Plan of Treatment Scheduled Procedures Name Priority [...] PM CDT) Hep A IgM Nonreactive Nonreactive [facility] Comment: Interpretive Data: If Hep A IgM Ab is reported as Equivocal, a new sample should be drawn in two weeks for testing. Current interpretive data was last revised on 19. Hep B core IgM Nonreactive Nonreactive [facility] Comment: Interpretive Data If HepB Core IgM Ab is reported as Equivocal, a new sample should be drawn in two weeks for testing. Current interpretive data was last revised on 19. Hep C Ab Nonreactive Nonreactive [facility] Comment:Antibodies to HCV no t detected. Does NOT exclude the possibility of recent exposure to HCV. HepBsAg Nonreactive Nonreactive [facility] Blood 02/28/2022 2:52 PM CDT 02/28/2022 6:46 PM CDT Morenita Juarez NP LAB MICROBIOLOGY - GENERAL O RDERABLES Edited Result - Final [facility] Department [place] [address] from Last 3 Months or Most Recently Relevant to Health Maintenance Insurance [employer] [employer] [employer] [employer] Address: [facility] [id number] [place] [address] [facility] Advance Directives For more information, please contact: [phone] * Full Code (Latest Code Status on File) Date Activated Date Inactivated Comments 07/07/2023 2:21 AM 07/13/2023 6:01 PM Care Teams Neurology Stroke Physician Relationship Specialty Start Date End Date Mounika Holland DO PCP - General Family Medicine 07/10/23
--- OUTSIDE RECORDS SUMMARY | 2025-07-16 10:39 | XMS_ITS | Encounter Summary ---
Author Organization [facility] Address [address] 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
[2025-07-16] MEDS: ACETAMINOPHEN 325 MG TABLET 650 MG PO ×2 (12:06→21:41)
[2025-07-16] MEDS: THIAMINE HCL 100 MG TABLET PO (12:06)
[2025-07-16] MEDS: chlordiazePOXIDE (*CRX) 10 MG CAPSULE PO ×2 (12:06→21:38)
[2025-07-16] MEDS: FOLIC ACID 1 MG TABLET PO (12:06)
--- NOTE | 2025-07-16 14:39 | PM.IMHP ---
H&P: HPI History of Present Illness Date/Time: 07/16/25 14:39 Chief Complaint: Hypokalemia Narrative: 59 yoF with PMH JOLEEN, CHF, HTN, PRES syndrome and chronic back pain who was directed to the ER by PCP for hypokalemia . Patient noted she has been having poor oral intake the past 2 weeks, associated with 17 lbs weight loss and generalized weakness. However noted she drinking half a pint daily. Denies any chest pain, SOB, abd pain, diarrhea, vomiting, and focal deficits. ER eval notable for BP 100/64, [place] 64, T 98.3, RR 14, Saturating 98% on room air. Labs notable hb 9.2, MCV 109.4, K 2.6 K replaced prior to admission Review of Systems Review of Systems: All other systems were reviewed and negative except as noted in the HPI above. [facility] Past Medical History Medical History [place]'s disease PRES (posterior reversible encephalopathy syndrome) 07/07/2023 Vitamin D deficiency Abnormal x-ray of spine Congestive heart failure Chronic knee pain Chronic back pain delivery delivered Arthritis Surgical History Surgical History H/O: hysterectomy Family History Family History Father Cancer Mother Cancer Thyroid disorder Sibling Cancer Grandparent Cancer Social History Social History Smoking packs per day: 1 Smoking cigarettes per day: 20.0 Years smoked: 45 Smoking pack-years: 45.00 Smoking status: Former smoker Tobacco type: cigarettes Alcohol intake: current Alcohol use details: 1 pint a week Substance use: current Substance use type: marijuana Do You Feel Safe in your Home?: Yes Lack of Transportation: No Lack of Food: Never True Current Housing: I Have Housing Concerned About Future Housing: No Difficulty Paying Gas/Electric Bills: No Difficulty Paying for Meds: No Currently Unemployed: No Education: Decline to Answer Difficulty w/ Childcare or Family Care: No Living arrangements: alone Spiritual care concerns: No Agree to blood products: Yes Meds Home Medications and Allergies Home Medications ?Medication ?Instructions ?Recorded ?Confirmed ?Type omeprazole 20 mg capsule,delayed 20 mg PO DAILY 07/18/23 07/16/25 History release empagliflozin 10 mg tablet See Rx Instructions .Route 08/07/23 07/16/25 Rx (Jardiance) .COMPLEX #30 tabs CPAP Equipment #1 ea 01/23/24 07/16/25 Rx telmisartan 80 mg tablet 40 mg PO DAILY 04/15/24 07/16/25 History fluoxetine 60 mg tablet 60 mg PO DAILY #90 tabs 01/13/25 07/16/25 Rx ondansetron 4 mg disintegrating 4 mg PO Q8H PRN nausea and 07/01/25 07/16/25 Rx tablet vomiting #30 tabs carvedilol 6.25 mg tablet 6.25 mg PO BID #180 tabs 07/15/25 07/16/25 Rx rosuvastatin 10 mg tablet 5 mg (1/2 x 10 mg) PO DAILY #45 07/15/25 07/16/25 Rx tabs hydrochlorothiazide 12.5 mg tablet 12.5 mg PO DAILY 07/16/25 07/16/25 History Allergies Allergy/AdvReac Type Severity Reaction Status Date / Time lisinopril Allergy Mild Cough Verified 07/16/25 11:40 Vital Signs Vital Signs - 24 hr 07/15/25 19:50 07/15/25 22:09 07/15/25 22:10 Temperature 98.7 F Pulse Rate 92 Respiratory Rate 18 Blood Pressure 100/59 L 87/61 L Pulse Oximetry 96 97 93 Oxygen Delivery Oxygen Flow Rate 07/15/25 22:15 07/15/25 22:16 07/15/25 22:19 Temperature Pulse Rate Respiratory Rate Blood Pressure 88/64 L 90/57 L Pulse Oximetry 95 99 94 Oxygen Delivery Oxygen Flow Rate 07/15/25 22:23 07/15/25 22:30 07/15/25 22:31 Temperature Pulse Rate 66 68 Respiratory Rate 20 21 H Blood Pressure 94/64 L 87/54 L Pulse Oximetry 97 94 93 Oxygen Delivery Oxygen Flow Rate 07/15/25 23:07 07/15/25 23:15 07/15/25 23:16 Temperature Pulse Rate 79 70 70 Respiratory Rate 17 18 13 Blood Pressure 96/66 L Pulse Oximetry 98 97 95 Oxygen Delivery Oxygen Flow Rate 07/15/25 23:30 07/15/25 23:31 07/15/25 23:53 Temperature Pulse Rate 67 67 70 Respiratory Rate 16 14 22 H Blood Pressure 100/65 Pulse Oximetry 100 99 92 Oxygen Delivery Oxygen Flow Rate 07/16/25 00:17 07/16/25 00:31 07/16/25 00:34 Temperature Pulse Rate 70 68 70 Respiratory Rate 22 H 18 21 H Blood Pressure 96/65 L Pulse Oximetry 92 95 93 Oxygen Delivery Oxygen Flow Rate 07/16/25 00:45 07/16/25 00:46 07/16/25 01:19 Temperature Pulse Rate 72 70 68 Respiratory Rate 21 H 22 H 21 H Blood Pressure 113/71 Pulse Oximetry 94 94 93 Oxygen Delivery Oxygen Flow Rate 07/16/25 01:30 07/16/25 01:31 07/16/25 01:32 Temperature Pulse Rate 68 70 68 Respiratory Rate 20 20 20 Blood Pressure 100/66 120/81 Pulse Oximetry 92 100 93 Oxygen Delivery Oxygen Flow Rate 07/16/25 07:00 07/16/25 07:00 07/16/25 07:15 Temperature Pulse Rate 75 72 Respiratory Rate 18 16 Blood Pressure 87/45 L 99/62 L Pulse Oximetry 97 97 98 Oxygen Delivery Nasal Cannula Oxygen Flow Rate 2 07/16/25 08:00 07/16/25 09:00 07/16/25 11:41 Temperature Pulse Rate 72 69 Respiratory Rate 15 16 Blood Pressure 99/62 L 106/70 143/81 H Pulse Oximetry 98 97 Oxygen Delivery Oxygen Flow Rate 07/16/25 11:41 07/16/25 12:00 Temperature 97.5 F L Pulse Rate 68 Respiratory Rate 20 Blood Pressure 141/78 H Pulse Oximetry 96 98 Oxygen Delivery Room Air Oxygen Flow Rate Exam Narrative: General: alert and comfortable Eyes: EOMI, PERRLA ENNT External ears normal, Neck is supple, no masses, Respiratory systems: Clear to auscultation Cardiovascular S1, S2, normal rhythm, no murmur, rub, or gallop; no thrill or palpable murmurs on palpation. Gastrointestinal: soft, non-tender, and non-distended abdomen with no masses; BS present Skin: no rash, lesions, ulcerations, subcutaneous nodules or induration Musculoskeletal: no abnormality and no tenderness, normal ROM Neurologic: Alert and oriented x3, non focal Mental Status Exam: normal affect H&P: Results Labs Labs: Short CBC 07/15/25 07/16/25 Range/Units 23:06 08:21 WBC 5.8 5.1 (4.5-10.0) K/mm3 Hgb 8.6 L 9.2 L (12.0-15.0) g/dL Hct 27.4 L 29.1 L (37.0-47.0) % Plt Count 224 208 (150-375) k/mm3 BMP 07/15/25 07/16/25 23:06 08:21 Sodium 138 139 Potassium 2.6 L* 3.2 L Chloride 98 100 Carbon Dioxide 28 33 H BUN 24 H 21 H Creatinine 1.27 H 0.99 Glucose 91 98 Calcium 9.0 8.9 Urine 07/15/25 Range/Units 23:07 Urine Color Yellow (Yellow) Urine Appearance Clear (Clear) Urine pH 6.0 (5.0-9.0) Ur Specific [place] 1.011 (1.001-1.035) Urine Protein Negative (Negative) mg/dL Urine Glucose (UA) Trace H (Negative) mg/dL Assessment and Plan Assessment and plan (1) Acute hypokalemia: Code(s): E87.6 - Hypokalemia Status: Acute Plan Hypokalemia Likely from poor oral intake No diarrhea or vomiting replaced and monitor K 3.2 currently FTT/protein energy malnutrition Poor oral intake with 17 lbs weight loss the last 2 weeks Liberalize diet, Supplements, Mirtazapine Dietitian consulted ALcohol abuse Drinks about half a fifth daily CIWA protocol counseled about alcohol cessation JOLEEN on CPAP monitor HTN titrate home meds with clinical course CHF, diastolic Titrate home meds with clinical course DVT prophylaxis on Sq Lovenox Hospitalist [facility] Advance Care Plan I have confirmed that the patient's Advanced Care Plan is present, code status is documented, or surrogate decision maker is listed in patient medical record.: Yes Medication Reconciliation I have utilized all available resources to obtain, update and review the patients current medications (includes all prescriptions, OTC, herbals, cannabis, and nutritional supplements).: Yes
--- NOTE | 2025-07-16 14:51 | PCDIET ---
Physician consult for FTT. Spoke with patient today. She is currently tolerating a regular diet. States to weight loss of about 7 ibs in 10 days, but has gained some of that back since admit. BMI: 37.6. Refused diet supplements, states she would just like to continue regular diet. Agree with diet orders. Thank you for consult.
[2025-07-16] MEDS: HYDROcodone/acetaminophen (*CRX) 5-325 MG TABLET 1 TAB PO (15:10)
[2025-07-16] MEDS: THIAMINE HCL INJ 100 MG, FOLIC ACID INJ 1 MG, MAGNESIUM SULFATE INJ 1 GM, MULTIVITAMINS... 125 MG IV CONT (16:44)
[2025-07-16] MEDS: MIRTAZAPINE 15 MG TABLET PO (21:37)
[2025-07-17] VITALS (21 sets, daily range): BP systolic 90–145; BP diastolic 52–89; PULSE 52–100; RESP 12–20; TEMP 36.8–37.2; O2SAT 94–98
[2025-07-17] MEDS: LACTATED RINGERS 1,000 ML 125 ML IV CONT ×2 (04:15→12:52)
[2025-07-17 06:48] LABS: Hematocrit 25.7 % (37.0-47.0); Hemoglobin 7.9 g/dL (12.0-15.0); Immature Granulocyte Percent A 0.6 % (0-0.5); Lymphocytes Absolute Auto 1.28 K/mm3 (0.9-3.2); Mean Corpuscular HGB Conc 30.7 g/dl (32-36); Mean Corpuscular Hemoglobin 34.6 pg (26-34); Mean Corpuscular Volume 112.7 fl (80-100); Nucleated Red Blood Cells Absolute Auto 0.000 K/mm3 (0.0-0.012); Nucleated Red Blood Cells Perc 0.0 % (0.0-0.2); Platelet Count Result 174 k/mm3 (150-375); Red Blood Count 2.28 M/mm3 (4.2-5.4); White Blood Count 3.6 K/mm3 (4.5-10.0)
[2025-07-17 07:07] LABS: Alanine Aminotransferase 76 U/L (6-35); Albumin Level 3.4 g/dL (3.5-5.1); Alkaline Phosphatase 99 U/L (38-126); Anion Gap 3 mmol/L (4-12); Aspartate Amino Transferase 109 U/L (14-36); Bilirubin,Total 0.4 mg/dL (0.2-1.3); Blood Urea Nitrogen 16 mg/dL (7-17); Calcium 8.5 mg/dL (8.4-10.2); Carbon Dioxide 35 mmol/L (22-30); Chloride 101 mmol/L (98-107); Estimated CRCL calculation 65 ml/min; Estimated Glomerular Filt Rate 59; Glucose 100 mg/dL (65-110); Iron 83 ug/dL (37-170); Magnesium 2.0 mg/dL (1.6-2.3); Sodium 139 mmol/L (137-145); Total Protein 6.1 g/dL (6.3-8.2)
[2025-07-17 07:16] LABS: Percent Iron Saturation 47 % (20-50); Potassium 3.0 mmol/L (3.4-5.0)
[2025-07-17 07:18] LABS: Hypochromasia 1+; Schistocytes None Seen; Stomatocytes Occasional
[2025-07-17 07:42] LABS: Thyroid Stimulating Hormone 6.150 uIU/mL (0.465-4.680)
[2025-07-17 07:48] LABS: Ferritin 434.00 ng/mL (11.1-264)
[2025-07-17] MEDS: chlordiazePOXIDE (*CRX) 10 MG CAPSULE PO ×2 (08:23→17:31)
[2025-07-17] MEDS: FOLIC ACID 1 MG TABLET PO (08:23)
[2025-07-17] MEDS: ROSUVASTATIN 5 MG TABLET PO (08:23)
[2025-07-17] MEDS: THIAMINE HCL 100 MG TABLET PO (08:23)
[2025-07-17] MEDS: TELMISARTAN 40 MG TABLET PO (09:16)
[2025-07-17 11:16] LABS: Free T4 Free Thyroxine 1.27 ng/dL (0.78-2.19)
[2025-07-17 11:47] LABS: Total Triiodothyronine (T3) 0.88 NG/ML (0.82-1.58)
[2025-07-17 12:05] LABS: Free T3 3.99 pg/mL (2.45-5.93)
[2025-07-17] MEDS: POTASSIUM CHLORIDE 20 MEQ ER TABLET 40 MEQ PO (14:37)
[2025-07-17] MEDS: POTASSIUM CHLORIDE INJ 40 MEQ in SODIUM CHLORIDE 0.9% IV 500 ML 130 MEQ IVPB (14:37)
[2025-07-17] MEDS: HYDROcodone/acetaminophen (*CRX) 5-325 MG TABLET 1 TAB PO ×2 (14:38→21:11)
--- NOTE | 2025-07-17 17:42 | PM.IMPN ---
Progress Note: A&P Assessment and Plan (1) Acute hypokalemia: Code(s): E87.6 - Hypokalemia Status: Acute Plan Hypokalemia Likely from poor oral intake No diarrhea or vomiting replaced and monitor K 3.2 currently FTT/protein energy malnutrition Poor oral intake with 17 lbs weight loss the last 2 weeks Liberalize diet, Supplements, Mirtazapine Dietitian consulted Alcohol abuse Drinks about half a fifth daily CIWA protocol counseled about alcohol cessation JOLEEN on CPAP monitor HTN titrate home meds with clinical course CHF, diastolic Titrate home meds with clinical course Macrocytic Anemia Hb 7.9, likely from alcohol abuse stable, monitor DVT prophylaxis on Sq Lovenox Subjective Date/time seen: 07/17/25 17:42 Interval history: Comfortable at bedside Review of Systems Review of Systems: All other systems were reviewed and negative except as noted in the HPI above. Exam Narrative: General: alert and comfortable Eyes: EOMI, PERRLA ENNT External ears normal, Neck is supple, no masses, Respiratory systems: Clear to auscultation Cardiovascular S1, S2, normal rhythm, no murmur, rub, or gallop; no thrill or palpable murmurs on palpation. Gastrointestinal: soft, non-tender, and non-distended abdomen with no masses; BS present Skin: no rash, lesions, ulcerations, subcutaneous nodules or induration Musculoskeletal: no abnormality and no tenderness, normal ROM Neurologic: Alert and oriented x3, non focal Mental Status Exam: normal affect Objective Data Vital Signs Vital Signs: Vital Signs - 24 hr 07/16/25 18:00 07/16/25 20:00 07/16/25 20:00 Temperature 98.1 F Pulse Rate 88 67 67 Pulse Rate [Apical Monitor] Respiratory Rate 18 Blood Pressure 110/68 Pulse Oximetry 96 Oxygen Delivery Oxygen Flow Rate 07/16/25 21:20 07/16/25 21:20 07/16/25 22:00 Temperature Pulse Rate 67 68 Pulse Rate [Apical Monitor] 67 Respiratory Rate 18 Blood Pressure 110/68 Pulse Oximetry 96 Oxygen Delivery Room Air Oxygen Flow Rate 07/16/25 22:47 07/17/25 00:00 07/17/25 00:12 Temperature 98.3 F Pulse Rate 87 53 L 57 L Pulse Rate [Apical Monitor] Respiratory Rate 19 20 Blood Pressure 117/82 Pulse Oximetry 95 98 Oxygen Delivery Autopap Oxygen Flow Rate 07/17/25 00:25 07/17/25 00:25 07/17/25 02:00 Temperature Pulse Rate 57 L 54 L Pulse Rate [Apical Monitor] 57 L Respiratory Rate 20 Blood Pressure 117/82 Pulse Oximetry 98 Oxygen Delivery CPAP Oxygen Flow Rate 2 07/17/25 04:00 07/17/25 04:09 07/17/25 04:09 Temperature Pulse Rate 55 L 66 Pulse Rate [Apical Monitor] 66 Respiratory Rate 18 Blood Pressure 145/77 H Pulse Oximetry 98 Oxygen Delivery CPAP Oxygen Flow Rate 2 07/17/25 04:49 07/17/25 05:59 07/17/25 08:00 Temperature 98.2 F 98.3 F Pulse Rate 66 67 71 Pulse Rate [Apical Monitor] Respiratory Rate 18 12 Blood Pressure 145/77 H 145/89 H Pulse Oximetry 98 94 Oxygen Delivery Oxygen Flow Rate 07/17/25 08:00 07/17/25 08:00 07/17/25 09:16 Temperature Pulse Rate 63 100 Pulse Rate [Apical Monitor] Respiratory Rate Blood Pressure Pulse Oximetry 94 Oxygen Delivery Room Air Oxygen Flow Rate 07/17/25 10:00 07/17/25 12:00 07/17/25 12:00 Temperature Pulse Rate 71 72 Pulse Rate [Apical Monitor] Respiratory Rate Blood Pressure Pulse Oximetry 94 Oxygen Delivery Room Air Oxygen Flow Rate 07/17/25 12:00 07/17/25 16:00 07/17/25 16:00 Temperature 98.9 F 98.8 F Pulse Rate 68 62 61 Pulse Rate [Apical Monitor] Respiratory Rate 16 16 Blood Pressure 103/71 113/80 Pulse Oximetry 95 97 Oxygen Delivery Oxygen Flow Rate Intake/Output Intake/Output: Intake & Output 07/14/25 07/15/25 07/16/25 07/17/25 23:59 23:59 23:59 23:59 Intake Total 3877.1 3391.1 Output Total 1300 Balance 3877.1 2091.1 Meds/Results Medications: Active Medications Generic Name Dose Route Start Last Admin Trade Name Freq PRN Reason Stop Dose Admin Acetaminophen 650 mg 07/15/25 23:47 07/16/25 21:41 Acetaminophen 325 Mg Tablet PO 650 mg Q4H PRN Administration Mild Pain (1-3) or Fever Hydrocodone Bitart/Acetaminophen 1 tab 07/16/25 14:56 07/17/25 14:38 Hydrocodone/Acetaminophen (*Crx) 5-325 Mg Tablet PO 1 tab Q4H PRN Administration Pain Rated 4-6 Carvedilol 6.25 mg 07/17/25 09:00 07/17/25 09:16 Carvedilol 6.25 Mg Tablet PO 6.25 mg Q12HR CIRA Administration Chlordiazepoxide HCl 10 mg 07/16/25 05:50 07/17/25 17:31 Chlordiazepoxide (*Crx) 10 Mg Capsule PO 10 mg Q8H PRN Administration Anxiety Diazepam 5 - 10 mg 07/16/25 14:34 Diazepam (*Crx) 5 Mg Tablet PO Q5M PRN CIWA > 15 Folic Acid 1 mg 07/16/25 09:00 07/17/25 08:23 Folic Acid 1 Mg Tablet PO 1 mg DAILY CIRA Administration Hydrochlorothiazide 12.5 mg 07/17/25 09:00 07/17/25 09:16 Hydrochlorothiazide 12.5 Mg Capsule PO 12.5 mg QAM CIRA Administration Lactated Ringer's 1,000 mls @ 125 mls/hr 07/15/25 23:50 07/17/25 12:52 Lr - Lactated Ringers Iv IV CONT 125 mls/hr .Q8H CIRA Administration Mirtazapine 15 mg 07/16/25 21:00 07/16/25 21:37 Mirtazapine 15 Mg Tablet PO 15 mg HS CIRA Administration Ondansetron HCl 4 mg 07/15/25 23:47 07/16/25 10:36 Ondansetron Inj 4 Mg/2 Ml Vial IV PUSH 4 mg Q4H PRN Administration Nausea Rosuvastatin Calcium 5 mg 07/17/25 09:00 07/17/25 08:23 Rosuvastatin 5 Mg Tablet PO 5 mg DAILY CIRA Administration Telmisartan 40 mg 07/17/25 09:00 07/17/25 09:16 Telmisartan 40 Mg Tablet PO 40 mg QAM CIRA Administration Thiamine HCl 100 mg 07/16/25 09:00 07/17/25 08:23 Thiamine Hcl 100 Mg Tablet PO 100 mg QAM CIRA Administration Radiology Results: ITS Impressions Chest X-Ray 07/16/25 15:44 Impression: No acute cardiopulmonary abnormality. Labs Labs: Laboratory Results - last 24 hr 07/16/25 07/17/25 07/17/25 19:21 00:19 06:34 WBC RBC Hgb Hct MCV MCH MCHC RDW Plt Count MPV Immature Gran % (Auto) Neut % (Auto) Lymph % (Auto) [place] % (Auto) Eos % (Auto) Baso % (Auto) Lymph # (Auto) [place] # (Auto) Eos # (Auto) Baso # (Auto) Abs Immat Gran (auto) Absolute Neuts (auto) Absolute Nucleated RBC Band Neutrophils % Nucleated RBC % Platelet Estimate Hypochromasia Stomatocytes Schistocytes Sodium Potassium Chloride Carbon Dioxide Anion Gap BUN Creatinine Estim Creat Clear Calc Estimated GFR Glucose POC Capillary Glucose 122 H 92 Calcium Magnesium Iron TIBC % Saturation Ferritin Total Bilirubin AST ALT Alkaline Phosphatase Total Protein Albumin TSH Free T4 1.27 Free T3 pg/mL 3.99 Total T3 0.88 07/17/25 07/17/25 06:37 11:19 WBC 3.6 L RBC 2.28 L Hgb 7.9 L Hct 25.7 L MCV 112.7 H MCH 34.6 H MCHC 30.7 L RDW 13.7 Plt Count 174 MPV 9.4 Immature Gran % (Auto) 0.6 H Neut % (Auto) 52.5 Lymph % (Auto) 36.0 [place] % (Auto) 8.1 Eos % (Auto) 2.2 Baso % (Auto) 0.6 Lymph # (Auto) 1.28 [place] # (Auto) 0.3 Eos # (Auto) 0.1 Baso # (Auto) 0.0 Abs Immat Gran (auto) 0.02 Absolute Neuts (auto) 1.9 Absolute Nucleated RBC 0.000 Band Neutrophils % Not Reportable Nucleated RBC % 0.0 Platelet Estimate Adequate Hypochromasia 1+ Stomatocytes Occasional Schistocytes None seen Sodium 139 Potassium 3.0 L Chloride 101 Carbon Dioxide 35 H Anion Gap 3 L BUN 16 Creatinine 0.96 Estim Creat Clear Calc 65 Estimated GFR 59 Glucose 100 POC Capillary Glucose 105 Calcium 8.5 Magnesium 2.0 Iron 83 TIBC 176 L % Saturation 47 Ferritin 434.00 H Total Bilirubin 0.4 AST 109 H ALT 76 H Alkaline Phosphatase 99 Total Protein 6.1 L Albumin 3.4 L TSH 6.150 H Free T4 Free T3 pg/mL Total T3
[2025-07-17] MEDS: MIRTAZAPINE 15 MG TABLET PO (21:05)
[2025-07-18] VITALS (8 sets, daily range): BP systolic 108–118; BP diastolic 56–76; PULSE 52–95; RESP 18–20; TEMP 36.1–36.6; O2SAT 96–100
[2025-07-18 04:20] LABS: Hematocrit 26.3 % (37.0-47.0); Hemoglobin 7.8 g/dL (12.0-15.0); Immature Granulocyte Percent A 0.5 % (0-0.5); Lymphocytes Absolute Auto 1.44 K/mm3 (0.9-3.2); Mean Corpuscular HGB Conc 29.7 g/dl (32-36); Mean Corpuscular Hemoglobin 34.1 pg (26-34); Mean Corpuscular Volume 114.8 fl (80-100); Nucleated Red Blood Cells Absolute Auto 0.000 K/mm3 (0.0-0.012); Nucleated Red Blood Cells Perc 0.0 % (0.0-0.2); Platelet Count Result 157 k/mm3 (150-375); Red Blood Count 2.29 M/mm3 (4.2-5.4); White Blood Count 4.0 K/mm3 (4.5-10.0)
[2025-07-18 04:42] LABS: Alanine Aminotransferase 61 U/L (6-35); Albumin Level 3.2 g/dL (3.5-5.1); Alkaline Phosphatase 81 U/L (38-126); Anion Gap 3 mmol/L (4-12); Aspartate Amino Transferase 70 U/L (14-36); Bilirubin,Total 0.2 mg/dL (0.2-1.3); Blood Urea Nitrogen 12 mg/dL (7-17); Calcium 8.4 mg/dL (8.4-10.2); Carbon Dioxide 32 mmol/L (22-30); Chloride 104 mmol/L (98-107); Estimated CRCL calculation 65 ml/min; Estimated Glomerular Filt Rate 59; Glucose 97 mg/dL (65-110); Magnesium 1.6 mg/dL (1.6-2.3); Potassium 3.7 mmol/L (3.4-5.0); Sodium 139 mmol/L (137-145); Total Protein 5.8 g/dL (6.3-8.2)
[2025-07-18 04:46] LABS: Hypochromasia 1+
[2025-07-18 04:48] LABS: Anisocytosis 1+; Ovalocytes Occasional; Schistocytes None Seen
[2025-07-18] MEDS: MAGNESIUM SULF 2 GM/WATER 50ML 2 GM/50 ML BAG IVPB (08:15)
[2025-07-18] MEDS: ROSUVASTATIN 5 MG TABLET PO (08:16)
[2025-07-18] MEDS: FOLIC ACID 1 MG TABLET PO (08:16)
[2025-07-18] MEDS: TELMISARTAN 40 MG TABLET PO (08:16)
[2025-07-18] MEDS: THIAMINE HCL 100 MG TABLET PO (08:17)
[2025-07-18] MEDS: ACETAMINOPHEN 325 MG TABLET 650 MG PO (08:17)
[2025-07-18] MEDS: POTASSIUM CHLORIDE 20 MEQ ER TABLET 40 MEQ PO (08:29)
--- NOTE | 2025-07-18 10:59 | P.DS_ITS ---
DS: Admitting Diagnosis Discharge Date 07/18/2025 Admitting Diagnosis Hypokalemia DS: Discharge Diagnosis Discharge Diagnosis (1) Acute hypokalemia: Code(s): E87.6 - Hypokalemia Status: Acute DS: Summary Hospital Course Hospital Course: 59 yoF with PMH JOLEEN, CHF, HTN, PRES syndrome and chronic back pain who was directed to the ER by PCP for hypokalemia . Patient noted she has been having poor oral intake the past 2 weeks, associated with 17 lbs weight loss and generalized weakness. However noted she drinking half a pint daily. Denies any chest pain, SOB, abd pain, diarrhea, vomiting, and focal deficits. ER eval notable for BP 100/64, [place] 64, T 98.3, RR 14, Saturating 98% on room air. Labs notable hb 9.2, MCV 109.4, K 2.6 K replaced prior to admission Topical management Hypokalemia, resolved Likely from poor oral intake No diarrhea or vomiting replaced and monitor Discharged on 20mEq bid x 5 days Hypomagnesemia replaced Discharged on 5 days of Mag oxide FTT/protein energy malnutrition Poor oral intake with 17 lbs weight loss the last 2 weeks Liberalize diet, Supplements, Oral intake improving Discharged on Mirtazapine, Fluconazole discontinued Alcohol abuse Drinks about half a fifth daily CIWA protocol counseled about alcohol cessation Discharged on Folic acid and Thiamine Discharged on Librium 10 bid PRN x 8 tabs Discussed with patient about alcohol cessation adn she noted she is not going to discontinue drinking JOLEEN on CPAP monitor HTN titrate home meds with clinical course HCTZ discontinued due to electrolyte imbalance CHF, diastolic Titrate home meds with clinical course Macrocytic Anemia Hb 7.9, likely from alcohol abuse counseled about alcohol cessation F/u with PCP in 3-5 days Time Spent with Patient Time attestation: Total time spent providing and/or coordinating discharge services: DS: Data Data Completed and Pending Labs on day of discharge: Labs from last 24 hours 07/18/25 07/18/25 07/17/25 06:23 04:07 19:22 WBC 4.0 L RBC 2.29 L Hgb 7.8 L Hct 26.3 L MCV 114.8 H MCH 34.1 H MCHC 29.7 L RDW 14.0 Plt Count 157 MPV 9.6 Immature Gran % (Auto) 0.5 Neut % (Auto) 50.3 Lymph % (Auto) 35.6 [place] % (Auto) 10.4 H Eos % (Auto) 2.5 Baso % (Auto) 0.7 Lymph # (Auto) 1.44 [place] # (Auto) 0.4 Eos # (Auto) 0.1 Baso # (Auto) 0.0 Abs Immat Gran (auto) 0.02 Absolute Neuts (auto) 2.0 Absolute Nucleated RBC 0.000 Band Neutrophils % Not Reportable Nucleated RBC % 0.0 Platelet Estimate Adequate Hypochromasia 1+ Anisocytosis 1+ Ovalocytes Occasional Schistocytes None seen Sodium 139 Potassium 3.7 Chloride 104 Carbon Dioxide 32 H Anion Gap 3 L BUN 12 Creatinine 0.96 Estim Creat Clear Calc 65 Estimated GFR 59 Glucose 97 POC Capillary Glucose 101 133 H Calcium 8.4 Magnesium 1.6 Total Bilirubin 0.2 AST 70 H ALT 61 H Alkaline Phosphatase 81 Total Protein 5.8 L Albumin 3.2 L Free T4 Free T3 pg/mL Total T3 07/17/25 07/17/25 11:19 06:34 WBC RBC Hgb Hct MCV MCH MCHC RDW Plt Count MPV Immature Gran % (Auto) Neut % (Auto) Lymph % (Auto) [place] % (Auto) Eos % (Auto) Baso % (Auto) Lymph # (Auto) [place] # (Auto) Eos # (Auto) Baso # (Auto) Abs Immat Gran (auto) Absolute Neuts (auto) Absolute Nucleated RBC Band Neutrophils % Nucleated RBC % Platelet Estimate Hypochromasia Anisocytosis Ovalocytes Schistocytes Sodium Potassium Chloride Carbon Dioxide Anion Gap BUN Creatinine Estim Creat Clear Calc Estimated GFR Glucose POC Capillary Glucose 105 Calcium Magnesium Total Bilirubin AST ALT Alkaline Phosphatase Total Protein Albumin Free T4 1.27 Free T3 pg/mL 3.99 Total T3 0.88 Discharge Plan Discharge Attending physician on discharge: Em Lu Discharging Clinician: Em Lu Anticipated Discharge Date/Time: 07/18/25 10:47 Patient Disposition: Home Activity: as tolerated Diet: as tolerated and regular Patient Instructions: Antibiotic Form, Heart Failure (DC) Patient Language: French Stand Alone Forms: General Discharge Information Follow-up/Referrals: Mounika Holland DO [Primary Care Provider, [facility]] Referral Note: F/u with PCP in 3-5 days Discharge Medications: New chlordiazepoxide HCl 10 mg Capsule 10 mg PO BID PRN (Reason: Anxiety) 4 Days Qty: 8 0RF mirtazapine [Remeron] 15 mg Tablet 15 mg PO HS 30 Days Qty: 30 1RF folic acid 1 mg tablet 1 mg PO DAILY 30 Days Qty: 30 0RF thiamine HCl (vitamin B1) [Vitamin B-1] 100 mg Tablet 100 mg PO QAM 30 Days Qty: 30 1RF magnesium oxide 400 mg magnesium tablet 400 mg PO BID 5 Days Qty: 10 0RF potassium chloride [K-Tab] 20 mEq tablet extended release 20 meq PO BID 5 Days Qty: 10 0RF Continued (DME) CPAP Equipment See Rx Instructions .Route .MEDSUPPLY Qty: 1 0RF Rx Instructions: Rx: Size medium Resmed AirFit F20 full face mask DME: [facility] telmisartan 80 mg tablet 40 mg PO DAILY Rx Instructions: take 1/2 daily ondansetron 4 mg tablet,disintegrating 4 mg PO Q8H PRN (Reason: nausea and vomiting) Qty: 30 0RF rosuvastatin 10 mg tablet 5 mg PO DAILY Qty: 45 3RF carvedilol 6.25 mg tablet 6.25 mg PO BID Qty: 180 1RF omeprazole 20 mg Capsule,Delayed Release(Dr/Ec) 20 mg PO DAILY Jardiance 10 mg tablet See Rx Instructions .ROUTE .COMPLEX Qty: 30 5RF Dose Instruction: TAKE 1 TABLET BY MOUTH DAILY Rx Instructions: TAKE 1 TABLET BY MOUTH DAILY Discontinued hydrochlorothiazide 12.5 mg tablet 12.5 mg PO DAILY fluoxetine 60 mg tablet 60 mg PO DAILY Qty: 90 1RF Date of admission: 07/15/25 23:47 Primary Care Provider: Mounika Holland Admitting Provider: Em Lu Attending physician on admission: Em Lu Condition: Stable
--- OUTSIDE RECORDS SUMMARY | 2025-07-20 08:00 | XMS_ITS | Encounter Summary ---
Author Organization [facility] Address [address] 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
--- OUTSIDE RECORDS SUMMARY | 2025-07-20 08:00 | XMS_ITS | Clinical Summary ---
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 Gender Identity Not on file Sexual Orientation Not on file Occupation Industry Job Start Date Job End Date [employer] Not on file Not on file Not on file Obstetrics History Last Filed Vital Signs Vital Sign Reading Time Taken Comments Blood Pressure 127/83 11/25/2024 11:27 AM BOOT TRIMMER Pulse 76 11/25/2024 11:27 AM BOOT TRIMMER Temperature 36.6 C (97.8 F) 07/10/2024 3:48 PM CDT Respiratory Rate 18 07/13/2023 11:38 AM CDT Oxygen Saturation 100% 11/25/2024 11:27 AM BOOT TRIMMER Inhaled Oxygen Concentration - - Weight 102.1 kg (225 lb) 11/25/2024 11:27 AM BOOT TRIMMER Height 161.3 cm (5' 3.5) 11/25/2024 11:27 AM CS T Body Mass Index 39.23 11/25/2024 11:27 AM BOOT TRIMMER Plan of Treatment Scheduled Procedures Name Priority [...] PM CDT) Hep A IgM Nonreactive Nonreactive [facility] Comment: Interpretive Data: If Hep A IgM Ab is reported as Equivocal, a new sample should be drawn in two weeks for testing. Current interpretive data was last revised on 19. Hep B core IgM Nonreactive Nonreactive [facility] Comment: Interpretive Data If HepB Core IgM Ab is reported as Equivocal, a new sample should be drawn in two weeks for testing. Current interpretive data was last revised on 19. Hep C Ab Nonreactive Nonreactive [facility] Comment:Antibodies to HCV no t detected. Does NOT exclude the possibility of recent exposure to HCV. HepBsAg Nonreactive Nonreactive [facility] Blood 02/28/2022 2:52 PM CDT 02/28/2022 6:46 PM CDT Morenita Juarez NP LAB MICROBIOLOGY - GENERAL O RDERABLES Edited Result - Final [facility] Department [place] [address] from Last 3 Months or Most Recently Relevant to Health Maintenance Insurance [employer] Address: [facility] [address] [place] [address] [facility] Advance Directives For more information, please contact: [phone] * Full Code (Latest Code Status on File) Date Activated Date Inactivated Comments 07/07/2023 2:21 AM 07/13/2023 6:01 PM Care Teams Professional System Administrator Relationship Specialty Start Date End Date Mounika Holland DO PCP - General Family Medicine 07/10/23
== END 2025-07-18 11:40 | disposition home or self-care (01) ==
LOC: ANHED 22:34 → ANHIMU 07-16 06:34
PROVIDERS: Nurse Practitioner; Admitting Provider Internal Medicine; Emergency Provider Student in an Organized Health Care Education/Training Program; PCP Family Medicine; Visit Provider Internal Medicine
DX: E87.6 Hypokalemia (principal); E83.42 Hypomagnesemia; E46 Unspecified protein-calorie malnutrition; I50.30 Unspecified diastolic (congestive) heart failure; F10.10 Alcohol abuse, uncomplicated; D53.9 Nutritional anemia, unspecified; I11.0 Hypertensive heart disease with heart failure; M54.9 Dorsalgia, unspecified; G89.29 Other chronic pain; E11.9 Type 2 diabetes mellitus without complications; E24.9 Cushing's syndrome, unspecified; G47.33 Obstructive sleep apnea (adult) (pediatric); I67.83 Posterior reversible encephalopathy syndrome; Z99.89 Dependence on other enabling machines and devices; Z87.891 Personal history of nicotine dependence; Z80.9 Family history of malignant neoplasm, unspecified
CPT/HCPCS: 36415; 71046; 80048; 80053; 81001; 81003; 82607; 82728; 82746; 82948; 83540; 83550; 83735; 84439; 84443; 84480; 84481; 85025; 85027; 93005; 96365; 96366; 96367; 96374; 96375; 99285; A9270; G0378; G0379; J2405; J3411; J3475; J3480; J7030; J7040; J7120; J7121

== ENCOUNTER 2025-07-21 15:10 | Outpatient (CLI) | payer OTHER, SELFPAY ==
[2025-07-21 15:45] LABS: Hematocrit 28.5 % (37.0-47.0); Hemoglobin 8.5 g/dL (12.0-15.0); Immature Granulocyte Percent A 0.4 % (0-0.5); Lymphocytes Absolute Auto 1.38 K/mm3 (0.9-3.2); Mean Corpuscular HGB Conc 29.8 g/dl (32-36); Mean Corpuscular Hemoglobin 34.3 pg (26-34); Mean Corpuscular Volume 114.9 fl (80-100); Nucleated Red Blood Cells Absolute Auto 0.000 K/mm3 (0.0-0.012); Nucleated Red Blood Cells Perc 0.0 % (0.0-0.2); Platelet Count Result 236 k/mm3 (150-375); Red Blood Count 2.48 M/mm3 (4.2-5.4); White Blood Count 5.0 K/mm3 (4.5-10.0)
[2025-07-21 15:54] LABS: Hypochromasia 1+
[2025-07-21 15:55] LABS: Schistocytes None Seen; Stomatocytes Occasional
[2025-07-21 16:00] LABS: Alanine Aminotransferase 39 U/L (6-35); Albumin Level 4.1 g/dL (3.5-5.1); Alkaline Phosphatase 96 U/L (38-126); Anion Gap 8 mmol/L (4-12); Aspartate Amino Transferase 42 U/L (14-36); Bilirubin,Total 0.5 mg/dL (0.2-1.3); Blood Urea Nitrogen 30 mg/dL (7-17); Calcium 9.2 mg/dL (8.4-10.2); Carbon Dioxide 25 mmol/L (22-30); Chloride 104 mmol/L (98-107); Estimated Glomerular Filt Rate 40; Glucose 103 mg/dL (65-110); Potassium 4.6 mmol/L (3.4-5.0); Sodium 137 mmol/L (137-145); Total Protein 7.2 g/dL (6.3-8.2)
--- OUTSIDE RECORDS SUMMARY | 2025-07-21 19:30 | XMS_ITS | Encounter Summary ---
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
--- OUTSIDE RECORDS SUMMARY | 2025-07-21 19:30 | XMS_ITS | Clinical Summary ---
Author Organization [facility] Address [address] [place] [address] Care Team Providers Care Dewaxer Name Role Phone Mounika Holland Primary Care [...] w/ labs as detailed below Referral to [facility] genetics to discuss further recommendations for [...] 1 month Body mass index 40.0-44.9, adult (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 Not on file Not on file Obstetrics History Last Filed Vital Signs Vital Sign Reading Time Taken Comments Blood Pressure 127/83 11/25/2024 11:27 AM BOILING HOUSE HAND Pulse 76 11/25/2024 11:27 AM BOILING HOUSE HAND Temperature 36.6 C (97.8 F) 07/10/2024 3:48 PM CDT Respiratory Rate 18 07/13/2023 11:38 AM CDT Oxygen Saturation 100% 11/25/2024 11:27 AM BOILING HOUSE HAND Inhaled Oxygen Concentration - - Weight 102.1 kg (225 lb) 11/25/2024 11:27 AM BOILING HOUSE HAND Height 161.3 cm (5' 3.5) 11/25/2024 11:27 AM CS T Body Mass Index 39.23 11/25/2024 11:27 AM BOILING HOUSE HAND Plan of Treatment Scheduled Procedures Name Priority [...] Hep A IgM Nonreactive Nonreactive [facility] Comment: Interpretive Data: If Hep A IgM Ab is reported as Equivocal, a new sample should be drawn in two weeks for testing. Current interpretive data was last revised on 19. Hep B core IgM Nonreactive Nonreactive [facility] Comment: Interpretive Data If HepB Core IgM Ab is reported as Equivocal, a new sample should be drawn in two weeks for testing. Current interpretive data was last revised on 19. Hep C Ab Nonreactive Nonreactive [facility] Comment:Antibodies to HCV no t detected. Does NOT exclude the possibility of recent exposure to HCV. HepBsAg Nonreactive Nonreactive [facility] Blood 02/28/2022 2:52 PM CDT 02/28/2022 6:46 PM CDT Morenita Juarez NP LAB MICROBIOLOGY - GENERAL O RDERABLES Edited Result - Final [facility] Department [place] [address] from Last 3 Months or Most Recently Relevant to Health Maintenance Insurance [employer] Address: [facility] [address] [place] [address] [facility] Advance Directives For more information, please contact: [phone] * Full Code (Latest Code Status on File) Date Activated Date Inactivated Comments 07/07/2023 2:21 AM 07/13/2023 6:01 PM Care Teams Dewaxer Relationship Specialty Start Date End Date Mounika Holland DO PCP - General Family Medicine 07/10/23
== END 2025-07-21 15:11 | disposition home or self-care (01) ==
PROVIDERS: PCP Family Medicine; Visit Provider Family Medicine
DX: R79.89 Other specified abnormal findings of blood chemistry (principal); E87.6 Hypokalemia; I10 Essential (primary) hypertension
CPT/HCPCS: 36415; 80053; 85025